=== PATIENT | female | born 1955 | race African-American/Black ===

== ENCOUNTER 2022-01-02 08:08 | Inpatient (IN) | payer MEDICAID, OTHER ==
[2022-01-02] VITALS (20 sets, daily range): BP systolic 80–129; BP diastolic 47–75
[~2022-01-02] VITALS: Ht 165.1 cm; Wt 73.5 kg
[2022-01-02] MEDS ORDERED: PANTOPRAZOLE SODIUM 40 MG/VIAL IV STA (08:16)
[2022-01-02] MEDS ORDERED: SODIUM CHLORIDE 0.9% 1,000 ML IV ONE (08:30)
[2022-01-02 09:04] LABS: BASOPHILS % 0.3 % (0.0-2.0); EOSINOPHILS % 0.4 % (0.0-5.0); HEMATOCRIT. 21.5 % (36.0-48.0); HEMOGLOBIN. 7.1 g/dL (12.0-16.0); LYMPHOCYTES % 13.6 % (20.0-50.0); MEAN CORPUSCULAR HEMOGLOBIN 31.7 pg (28.0-32.0); MEAN CORPUSCULAR VOLUME 96.1 fL (81.0-99.0); MEAN PLATELET VOLUME 7.1 fl (7.4-10.4); MONOCYTES % 7.8 % (2.0-8.0); NEUTROPHILS % 77.9 % (40.0-76.0); PLATELET 414 x1000/uL (130-400); RED BLOOD CELL COUNT 2.23 mill/uL (4.2-5.4); RED CELL DISTRIBUTION WIDTH 18.8 % (11.6-14.6)
[2022-01-02 09:10] LABS: CHLORIDE 97 mEq/L (98-107)
[2022-01-02] MEDS ORDERED: LIDOCAINE HCL/PF 1% 10 MG/ML 5ML VIAL ONE (09:10)
[2022-01-02 09:19] LABS: ETHANOL BLOOD < 10 mg/dL; TOTAL IRON BINDING CAPACITY 133 ug/dL (250-450)
[2022-01-02] MEDS ORDERED: NOREPINEPHRINE 8 MG in DEXT 5% WATER 242 ML IV PRN ×6 (11:30→18:15)
[2022-01-02] MEDS ORDERED: PIPERACILLIN/TAZ 3.375G PREMIX 50 ML IV NR (12:00)
[2022-01-02] MEDS ORDERED: DOCUSATE SODIUM 100MG CAPSULE PO PRN (13:00)
[2022-01-02] MEDS ORDERED: GUAIFENESIN 200MG/10ML SUGAR FREE UDC PO PRN (13:00)
[2022-01-02] MEDS ORDERED: CLONIDINE 0.1MG TABLET PO PRN (13:00)
[2022-01-02] MEDS ORDERED: IPRATROPIUM/ALBUTEROL 0.5-3(2.5)MG/3ML NEB HHN PRN (13:00)
[2022-01-02] MEDS ORDERED: LORAZEPAM 2MG/ML CPJ IV PRN (13:00)
[2022-01-02] MEDS ORDERED: MORPHINE SULFATE 4 MG/ML CPJ (NOT FOR IM USE) IV ONE (13:00)
[2022-01-02] MEDS ORDERED: ACETAMINOPHEN 325MG TABLET PO PRN (13:00)
[2022-01-02] MEDS ORDERED: NALOXONE HCL 0.4MG/ML VIAL IV PRN (13:30)
[2022-01-02 13:32] LABS: *AMPHETAMINES SCREEN URINE NEGATIVE (NEGATIVE); *BARBITURATES SCREEN URINE NEGATIVE (NEGATIVE); *BENZODIAZEPINES SCREEN URINE NEGATIVE (NEGATIVE); *COCAINE SCREEN URINE NEGATIVE (NEGATIVE); CANNABINOID URINE SCREEN NEGATIVE (NEGATIVE); METHADONE URINE SCREEN NEGATIVE (NEGATIVE); OPIATES URINE SCREEN PRESUMTIVE POSITIVE (NEGATIVE); PHENCYCLIDINE URINE SCREEN NEGATIVE (NEGATIVE)
[2022-01-02] MEDS: DEXT 5%/0.9% NACL 1,000 ML IV SCH (14:15)
[2022-01-02 14:27] LABS: D-DIMER 1.59 mg/L FEU (<0.50); INR 1.2; PROTHROMBIN TIME 12.8 sec (9.6-11.0)
[2022-01-02 14:30] LABS: PHOSPHORUS 3.3 mg/dL (2.5-4.9)
[2022-01-02] MEDS: HYDROMORPHONE HCL/PF 2MG/ML CPJ IV PRN ×2 (14:59→20:15)
[2022-01-02] MEDS ORDERED: VANCOMYCIN 1,750 MG in DEXT 5% WATER 500 ML IV NR (15:00)
[2022-01-02] MEDS ORDERED: MORPHINE SULFATE 4 MG/ML CPJ (NOT FOR IM USE) IV NR (16:00)
[2022-01-02 19:01] LABS: CLARITY URINE CLOUDY (CLEAR); COLOR URINE YELLOW (YELLOW); KETONES URINE NEGATIVE (NEGATIVE); LEUKOCYTE ESTERASE URINE 1+ (NEGATIVE); NITRITE URINE NEGATIVE (NEGATIVE); OCCULT BLOOD URINE 1+ (NEGATIVE); PH URINE 5.5 (4.5-8.0); PROTEIN URINE TRACE (NEGATIVE); SPECIFIC GRAVITY URINE 1.013 (1.005-1.030); UROBILINOGEN URINE 0.2 E.U./dL (0.2-1.0)
[2022-01-02] MEDS ORDERED: PIPERACILLIN/TAZOBACTAM 3.375 G in DEXTROSE 5% WATER 50 ML IV SCH (21:00)
[2022-01-02] MEDS: PIPERACILLIN/TAZOBACTAM 3.375 G in DEXTROSE 5% WATER 50 ML IV SCH (21:35)
[2022-01-02 23:15] LABS: BASOPHILS % 0.4 % (0.0-2.0); EOSINOPHILS % 0.4 % (0.0-5.0); HEMATOCRIT. 33.5 % (36.0-48.0); HEMOGLOBIN. 10.8 g/dL (12.0-16.0); MEAN CORPUSCULAR HEMOGLOBIN 29.5 pg (28.0-32.0); MEAN PLATELET VOLUME 7.1 fl (7.4-10.4); MONOCYTES % 8.1 % (2.0-8.0); NEUTROPHILS % 78.1 % (40.0-76.0); PLATELET 417 x1000/uL (130-400); RED BLOOD CELL COUNT 3.68 mill/uL (4.2-5.4); RED CELL DISTRIBUTION WIDTH 24.1 % (11.6-14.6)
[2022-01-03] VITALS (50 sets, daily range): BP systolic 98–160; BP diastolic 44–105
[2022-01-03] MEDS: ACETAMINOPHEN 325MG TABLET PO PRN ×2 (00:16→20:12)
[2022-01-03] MEDS ORDERED: OMEP20CA14 PO (00:55)
[2022-01-03] MEDS ORDERED: TIZA4CAP6 PO (00:55)
[2022-01-03] MEDS ORDERED: LISI20TA31 MT (00:55)
[2022-01-03] MEDS ORDERED: EZET-55 PO (00:55)
[2022-01-03] MEDS ORDERED: ALEN35TA52 MT (00:55)
[2022-01-03] MEDS ORDERED: SIMV10TA97 MT (00:55)
[2022-01-03] MEDS ORDERED: TRAM50TA3 MT (00:55)
[2022-01-03] MEDS: HYDROMORPHONE HCL/PF 2MG/ML CPJ IV PRN ×4 (02:51→20:21)
[2022-01-03 05:21] LABS: PLATELET ESTIMATE SLIGHTLY INCREASED
[2022-01-03 05:28] LABS: HEMATOCRIT. 29.2 % (36.0-48.0); MEAN CORPUSCULAR HEMOGLOBIN 30.5 pg (28.0-32.0); MEAN CORPUSCULAR VOLUME 88.8 fL (81.0-99.0); MEAN PLATELET VOLUME 7.2 fl (7.4-10.4); PLATELET 414 x1000/uL (130-400); RED BLOOD CELL COUNT 3.28 mill/uL (4.2-5.4); RED CELL DISTRIBUTION WIDTH 23.9 % (11.6-14.6)
[2022-01-03 05:30] LABS: CHLORIDE 105 mEq/L (98-107)
[2022-01-03 05:43] LABS: HDL CHOLESTEROL 8 mg/dL (40-59); LDL CHOLESTEROL 15 mg/dL (5-100); T4 FREE 1.16 ng/dL (0.76-1.46)
[2022-01-03] MEDS: DEXT 5%/0.9% NACL 1,000 ML IV SCH ×3 (06:06→18:21)
[2022-01-03] MEDS: PIPERACILLIN/TAZOBACTAM 3.375 G in DEXTROSE 5% WATER 50 ML IV SCH ×2 (09:02→20:11)
[2022-01-03] MEDS: PANTOPRAZOLE SODIUM 40 MG/VIAL IV SCH (09:02)
[2022-01-03 09:44] LABS: HEMOGLOBIN. 10.7 g/dL (12.0-16.0); MEAN CORPUSCULAR HEMOGLOBIN 29.8 pg (28.0-32.0); MEAN PLATELET VOLUME 6.9 fl (7.4-10.4); PLATELET 407 x1000/uL (130-400); RED CELL DISTRIBUTION WIDTH 23.5 % (11.6-14.6)
[2022-01-03 09:47] LABS: NUCLEATED RED BLOOD CELLS 1 /100 WBC; PLATELET ESTIMATE SLIGHTLY INCREASED
[2022-01-03 10:46] LABS: NUCLEATED RED BLOOD CELLS 1 /100 WBC; PLATELET ESTIMATE SLIGHTLY INCREASED
[2022-01-03 13:05] LABS: HEMATOCRIT. 33.8 % (36.0-48.0); MEAN CORPUSCULAR HEMOGLOBIN 29.7 pg (28.0-32.0); MEAN CORPUSCULAR VOLUME 91.5 fL (81.0-99.0); PLATELET 442 x1000/uL (130-400); RED CELL DISTRIBUTION WIDTH 24.3 % (11.6-14.6)
[2022-01-03 13:49] LABS: NUCLEATED RED BLOOD CELLS 2 /100 WBC; PLATELET ESTIMATE INCREASED
[2022-01-03] MEDS ORDERED: VANCOMYCIN 500MG PREMIX 100 ML IV SCH (14:00)
[2022-01-03 18:43] LABS: BASOPHILS % 0.1 % (0.0-2.0); EOSINOPHILS % 0.3 % (0.0-5.0); HEMATOCRIT. 31.8 % (36.0-48.0); HEMOGLOBIN. 10.3 g/dL (12.0-16.0); LYMPHOCYTES % 15.5 % (20.0-50.0); MEAN CORPUSCULAR HEMOGLOBIN 29.7 pg (28.0-32.0); MEAN CORPUSCULAR VOLUME 91.8 fL (81.0-99.0); MONOCYTES % 9.6 % (2.0-8.0); NEUTROPHILS % 74.5 % (40.0-76.0); PLATELET 419 x1000/uL (130-400); RED BLOOD CELL COUNT 3.46 mill/uL (4.2-5.4); RED CELL DISTRIBUTION WIDTH 24.3 % (11.6-14.6)
[2022-01-03 18:45] LABS: CREATINE KINASE MB FRACTION 1.7 ng/mL (0.5-3.6)
[2022-01-03] MEDS: ONDANSETRON HCL 4MG/2ML INJ IV PRN (23:33)
[2022-01-04] VITALS (16 sets, daily range): BP systolic 131–165; BP diastolic 58–82
[2022-01-04 00:44] LABS: CREATINE KINASE MB FRACTION 1.6 ng/mL (0.5-3.6)
[2022-01-04] MEDS: HYDROMORPHONE HCL/PF 2MG/ML CPJ IV PRN ×6 (00:52→20:52)
[2022-01-04] MEDS: DEXT 5%/0.9% NACL 1,000 ML IV SCH ×3 (02:36→18:43)
[2022-01-04 06:47] LABS: BASOPHILS % 0.2 % (0.0-2.0); EOSINOPHILS % 0.4 % (0.0-5.0); HEMATOCRIT. 31.4 % (36.0-48.0); HEMOGLOBIN. 10.3 g/dL (12.0-16.0); MEAN CORPUSCULAR HEMOGLOBIN 30.4 pg (28.0-32.0); MEAN CORPUSCULAR VOLUME 92.7 fL (81.0-99.0); MONOCYTES % 8.9 % (2.0-8.0); NEUTROPHILS % 73.5 % (40.0-76.0); PLATELET 354 x1000/uL (130-400); RED BLOOD CELL COUNT 3.39 mill/uL (4.2-5.4); RED CELL DISTRIBUTION WIDTH 24.9 % (11.6-14.6)
[2022-01-04 06:48] LABS: CHLORIDE 112 mEq/L (98-107)
[2022-01-04 07:12] LABS: CREATINE KINASE 498 IU/L (26-192)
[2022-01-04] MEDS ORDERED: PNEUMOCOCCAL 23-VAL P-SAC VAC 0.5 ML IM ONE (09:00)
[2022-01-04] MEDS: PANTOPRAZOLE SODIUM 40 MG/VIAL IV SCH (09:53)
[2022-01-04] MEDS: PIPERACILLIN/TAZOBACTAM 3.375 G in DEXTROSE 5% WATER 50 ML IV SCH ×2 (09:53→21:24)
[2022-01-04 18:17] LABS: HEMATOCRIT 30.4 % (36.0-48.0); HEMOGLOBIN 9.6 g/dL (12.0-16.0); MEAN CORPUSCULAR VOLUME 94.8 fL (81.0-99.0); PLATELET 297 x1000/uL (130-400); RED CELL DISTRIBUTION WIDTH 24.6 % (11.6-14.6)
[2022-01-04 18:42] LABS: CHLORIDE 111 mEq/L (98-107)
[2022-01-04] MEDS: DIPHENHYDRAMINE 50MG/ML VIAL IV PRN (21:24)
[2022-01-04] MEDS: ONDANSETRON HCL 4MG/2ML INJ IV PRN (21:24)
[2022-01-05] VITALS: BP 122/56
[2022-01-05] MEDS: HYDROMORPHONE HCL/PF 2MG/ML CPJ IV PRN ×5 (00:54→22:25)
[2022-01-05] MEDS: DIPHENHYDRAMINE 50MG/ML VIAL IV PRN ×2 (01:24→05:25)
[2022-01-05 04:00] VITALS: BP 138/62
[2022-01-05] MEDS: DEXT 5%/0.9% NACL 1,000 ML IV SCH ×2 (05:16→22:14)
[2022-01-05 08:00] VITALS: BP 111/51
[2022-01-05] MEDS: PANTOPRAZOLE SODIUM 40 MG/VIAL IV SCH (08:36)
[2022-01-05] MEDS: KETOROLAC 30MG/ML VIAL IV PRN ×2 (08:36→20:43)
[2022-01-05] MEDS: PIPERACILLIN/TAZOBACTAM 3.375 G in DEXTROSE 5% WATER 50 ML IV SCH ×2 (08:36→20:38)
[2022-01-05] MEDS ORDERED: DIATR MEGLU/DIATRIZOATE SOLN 30ML PO NR (09:45)
[2022-01-05 12:00] VITALS: BP 120/68
[2022-01-05] MEDS ORDERED: IOHEXOL-300 100 ML BOTTLE ONE (19:26)
[2022-01-05 20:32] VITALS: BP 148/74
[2022-01-05 21:22] LABS: HEMATOCRIT 28.4 % (36.0-48.0); HEMOGLOBIN 9.3 g/dL (12.0-16.0); MEAN CORPUSCULAR HEMOGLOBIN 30.1 pg (28.0-32.0); MEAN CORPUSCULAR VOLUME 92.6 fL (81.0-99.0); PLATELET 335 x1000/uL (130-400); RED BLOOD CELL COUNT 3.07 mill/uL (4.2-5.4); RED CELL DISTRIBUTION WIDTH 23.7 % (11.6-14.6)
[2022-01-05 21:33] LABS: CHLORIDE 111 mEq/L (98-107)
[2022-01-06 00:10] VITALS: BP 97/42
[2022-01-06] MEDS: ACETAMINOPHEN 325MG TABLET PO PRN (00:33)
[2022-01-06 04:00] VITALS: BP 129/56
[2022-01-06] MEDS: HYDROMORPHONE HCL/PF 2MG/ML CPJ IV PRN ×2 (05:17→11:56)
[2022-01-06 08:00] VITALS: BP 152/57
[2022-01-06] MEDS: DEXT 5%/0.9% NACL 1,000 ML IV SCH (08:16)
[2022-01-06] MEDS: PANTOPRAZOLE SODIUM 40 MG/VIAL IV SCH (08:59)
[2022-01-06] MEDS: PIPERACILLIN/TAZOBACTAM 3.375 G in DEXTROSE 5% WATER 50 ML IV SCH (09:00)
[2022-01-06] MEDS ORDERED: PANT40SU PO (10:07)
[2022-01-06] MEDS ORDERED: AMOX600S16 PO (10:07)
[2022-01-06] MEDS ORDERED: ACET-2708 MT (10:07)
[2022-01-06 10:17] LABS: CHLORIDE 110 mEq/L (98-107)
[2022-01-06 12:00] VITALS: BP 161/76
[2022-01-06 13:43] LABS: HEMATOCRIT. 31.2 % (36.0-48.0); HEMOGLOBIN. 10.1 g/dL (12.0-16.0); MEAN CORPUSCULAR HEMOGLOBIN 29.3 pg (28.0-32.0); MEAN CORPUSCULAR VOLUME 90.8 fL (81.0-99.0); MEAN PLATELET VOLUME 7.5 fl (7.4-10.4); PLATELET 371 x1000/uL (130-400); RED BLOOD CELL COUNT 3.44 mill/uL (4.2-5.4); RED CELL DISTRIBUTION WIDTH 23.4 % (11.6-14.6)
[2022-01-06 14:10] LABS: NUCLEATED RED BLOOD CELLS 1 /100 WBC
[2022-01-06 14:11] LABS: PLATELET ESTIMATE NORMAL
[2022-01-06 16:00] VITALS: BP 167/71
[2022-01-06] MEDS: KETOROLAC 30MG/ML VIAL IV PRN (17:24)
[2022-01-06 18:02] VITALS: BP 167/71
== END 2022-01-06 18:45 | disposition home or self-care (01) | DRG 720 ==
LOC: ER 08:39 → MICUSO 11:27 → EDBEDREQSVC 11:47 → EDBEDREQTM 11:47 → EDBEDREQ 11:47 → ENRESERV 17:26 → 5EST 01-04 01:00 → 7WST 01-04 15:15
PROVIDERS: ADMIT Internal Medicine; ATTEND Internal Medicine
PROC: B54MZZA Ultrasonography of Right Upper Extremity Veins, Guidance (ICD-10-PCS; principal; 2022-01-02)
PROC: 05HY33Z Insertion of Infusion Device into Upper Vein, Percutaneous Approach (ICD-10-PCS; 2022-01-02)
PROC: 30233N1 Transfusion of Nonautologous Red Blood Cells into Peripheral Vein, Percutaneous Approach (ICD-10-PCS; 2022-01-02)
DX: A41.9 Sepsis, unspecified organism (principal); N17.0 Acute kidney failure with tubular necrosis; K55.9 Vascular disorder of intestine, unspecified; E43 Unspecified severe protein-calorie malnutrition; R57.1 Hypovolemic shock; R65.21 Severe sepsis with septic shock; E11.22 Type 2 diabetes mellitus with diabetic chronic kidney disease; I13.0 Hypertensive heart and chronic kidney disease with heart failure and stage 1 through stage 4 chronic kidney disease, or unspecified chronic kidney disease; I50.32 Chronic diastolic (congestive) heart failure; D50.0 Iron deficiency anemia secondary to blood loss (chronic); E87.1 Hypo-osmolality and hyponatremia; D75.839 Thrombocytosis, unspecified; I45.10 Unspecified right bundle-branch block; N18.9 Chronic kidney disease, unspecified; E11.65 Type 2 diabetes mellitus with hyperglycemia; E78.1 Pure hyperglyceridemia; G40.909 Epilepsy, unspecified, not intractable, without status epilepticus; K64.4 Residual hemorrhoidal skin tags; E78.5 Hyperlipidemia, unspecified; L03.90 Cellulitis, unspecified; Z79.83 Long term (current) use of bisphosphonates; Z82.49 Family history of ischemic heart disease and other diseases of the circulatory system; Z85.43 Personal history of malignant neoplasm of ovary; Z87.19 Personal history of other diseases of the digestive system; Z87.891 Personal history of nicotine dependence; Z90.710 Acquired absence of both cervix and uterus; Z92.21 Personal history of antineoplastic chemotherapy; Z92.3 Personal history of irradiation; Z88.8 Allergy status to other drugs, medicaments and biological substances; Z68.27 Body mass index [BMI] 27.0-27.9, adult
CPT/HCPCS: 36415; 36573; 71045; 74018; 74176; 74177; 80048; 80053; 80061; 80305; 80320; 81003; 82270; 82550; 82553; 82728; 83036; 83540; 83550; 83605; 83735; 83880; 84100; 84145; 84439; 84443; 84484; 85025; 85027; 85044; 85379; 86850; 86900; 86920; 87493; 90732; 93005; 93306; 97162; 99291; C1725; C9113; J1170; J1200; J1885; J2270; J2405; J2543; J3370; J3490; J7030; J7060; P9016; Q9963; Q9967; G0480

== ENCOUNTER 2022-01-18 10:36 | Inpatient (IN) | payer MEDICAID ==
[~2022-01-18] VITALS: Ht 162.6 cm; Wt 85.7 kg
[~2022-01-18 10:36] MED LIST: ACET-2708 MT; ALEN35TA52 MT; AMOX600S16 PO; EZET-55 PO; LISI20TA31 MT; PANT40SU PO; SIMV10TA97 MT; TIZA4CAP6 PO; TRAM50TA3 MT
[2022-01-18] MEDS ORDERED: ACETAMINOPHEN 325MG TABLET PO NR (10:59)
[2022-01-18] MEDS ORDERED: SODIUM CHLORIDE 0.9% 500 ML IV NR (11:45)
[2022-01-18] MEDS ORDERED: METOCLOPRAMIDE HCL 10MG/2ML VIAL IV NR (11:45)
[2022-01-18 12:06] LABS: BASOPHILS % 0.2 % (0.0-2.0); EOSINOPHILS % 1.3 % (0.0-5.0); HEMATOCRIT. 22.5 % (36.0-48.0); HEMOGLOBIN. 7.3 g/dL (12.0-16.0); LYMPHOCYTES % 11.5 % (20.0-50.0); MEAN CORPUSCULAR HEMOGLOBIN 30.4 pg (28.0-32.0); MEAN CORPUSCULAR VOLUME 93.9 fL (81.0-99.0); MEAN PLATELET VOLUME 7.1 fl (7.4-10.4); MONOCYTES % 3.9 % (2.0-8.0); NEUTROPHILS % 83.1 % (40.0-76.0); PLATELET 525 x1000/uL (130-400)
[2022-01-18] MEDS ORDERED: PIPERACILLIN/TAZ 3.375G PREMIX 50 ML IV ONE (12:15)
[2022-01-18] MEDS ORDERED: VANCOMYCIN 1G PREMIX 200 ML IV SCH (12:15)
[2022-01-18 12:31] LABS: INR 1.5; PROTHROMBIN TIME 15.9 sec (9.6-11.0)
[2022-01-18 12:33] LABS: CHLORIDE 104 mEq/L (98-107)
[2022-01-18 12:42] LABS: ETHANOL BLOOD < 10 mg/dL
[2022-01-18 12:46] LABS: PLATELET ESTIMATE INCREASED
[2022-01-18] MEDS ORDERED: MORPHINE SULFATE 4 MG/ML CPJ (NOT FOR IM USE) IV ONE (13:00)
[2022-01-18] MEDS ORDERED: SODIUM CHLORIDE 0.9% 500 ML IV ONE (13:15)
[2022-01-18] MEDS ORDERED: HYDROMORPHONE HCL/PF 2MG/ML CPJ IV ONE (13:15)
[2022-01-18] MEDS ORDERED: ONDANSETRON HCL 4MG/2ML INJ IV ONE (13:15)
[2022-01-18] MEDS ORDERED: DIATR MEGLU/DIATRIZOATE SOLN 120ML ONE (13:30)
[2022-01-18] MEDS ORDERED: IOHEXOL-350 100 ML BOTTLE ONE (14:16)
[2022-01-18] MEDS ORDERED: ONDANSETRON HCL 4MG/2ML INJ IV NR (15:15)
[2022-01-18] MEDS ORDERED: SODIUM CHLORIDE 0.9% 1,000 ML IV ONE (15:15)
[2022-01-18] MEDS ORDERED: PIPERACILLIN/TAZ 3.375G PREMIX 50 ML IV NR (15:15)
[2022-01-18 16:00] VITALS: BP 109/46
[2022-01-18 17:33] VITALS: BP 108/54
[2022-01-18] MEDS: PANTOPRAZOLE SODIUM 40 MG/VIAL IV SCH (18:00)
[2022-01-18 18:34] LABS: TOTAL IRON BINDING CAPACITY 111 ug/dL (250-450)
[2022-01-18 18:54] LABS: FERRITIN 295 ng/mL (10-291)
[2022-01-18 19:00] LABS: VITAMIN B12 SERUM > 2000.0 pg/mL (211-911)
[2022-01-18 20:00] VITALS: BP 104/63
[2022-01-18] MEDS ORDERED: NALOXONE HCL 0.4MG/ML VIAL IV PRN (20:45)
[2022-01-18] MEDS: DEXT 5%/0.45% NACL 1000ML 1,000 ML IV SCH (20:48)
[2022-01-18] MEDS: MORPHINE SULFATE 2 MG/ML CPJ (NOT FOR IM USE) IV PRN (20:50)
[2022-01-18] MEDS: LEVOFLOXACIN 500MG PREMIX 100 ML IV SCH (21:08)
[2022-01-18] MEDS: METRONIDAZOLE 500 MG PREMIX 100 ML IV SCH (21:09)
[2022-01-18 21:16] LABS: HEMATOCRIT 22.7 % (36.0-48.0); HEMOGLOBIN 7.2 g/dL (12.0-16.0)
[2022-01-18 22:00] VITALS: BP 97/51
[2022-01-19] VITALS (12 sets, daily range): BP systolic 93–169; BP diastolic 45–100
[2022-01-19] MEDS: MORPHINE SULFATE 2 MG/ML CPJ (NOT FOR IM USE) IV PRN ×2 (01:03→05:25)
[2022-01-19 01:53] LABS: CLARITY URINE CLEAR (CLEAR); COLOR URINE YELLOW (YELLOW); KETONES URINE NEGATIVE (NEGATIVE); LEUKOCYTE ESTERASE URINE NEGATIVE (NEGATIVE); NITRITE URINE NEGATIVE (NEGATIVE); OCCULT BLOOD URINE NEGATIVE (NEGATIVE); PH URINE 5.5 (4.5-8.0); PROTEIN URINE TRACE (NEGATIVE); SPECIFIC GRAVITY URINE 1.041 (1.005-1.030)
[2022-01-19 02:50] LABS: *AMPHETAMINES SCREEN URINE NEGATIVE (NEGATIVE); *BARBITURATES SCREEN URINE NEGATIVE (NEGATIVE); *BENZODIAZEPINES SCREEN URINE NEGATIVE (NEGATIVE); *COCAINE SCREEN URINE NEGATIVE (NEGATIVE); CANNABINOID URINE SCREEN NEGATIVE (NEGATIVE); METHADONE URINE SCREEN NEGATIVE (NEGATIVE); OPIATES URINE SCREEN PRESUMTIVE POSITIVE (NEGATIVE); PHENCYCLIDINE URINE SCREEN NEGATIVE (NEGATIVE)
[2022-01-19 03:13] LABS: BASOPHILS % 0.4 % (0.0-2.0); EOSINOPHILS % 2.2 % (0.0-5.0); HEMATOCRIT. 21.1 % (36.0-48.0); HEMOGLOBIN. 7.1 g/dL (12.0-16.0); LYMPHOCYTES % 14.2 % (20.0-50.0); MEAN CORPUSCULAR VOLUME 95.4 fL (81.0-99.0); MEAN PLATELET VOLUME 7.3 fl (7.4-10.4); MONOCYTES % 4.3 % (2.0-8.0); NEUTROPHILS % 78.9 % (40.0-76.0); PLATELET 432 x1000/uL (130-400); RED BLOOD CELL COUNT 2.21 mill/uL (4.2-5.4); RED CELL DISTRIBUTION WIDTH 22.8 % (11.6-14.6)
[2022-01-19 03:18] LABS: CHLORIDE 106 mEq/L (98-107)
[2022-01-19] MEDS: ACETAMINOPHEN 325MG TABLET PO PRN ×2 (03:41→20:18)
[2022-01-19] MEDS: PANTOPRAZOLE SODIUM 40 MG/VIAL IV SCH ×2 (05:22→17:13)
[2022-01-19] MEDS: METRONIDAZOLE 500 MG PREMIX 100 ML IV SCH ×3 (05:22→20:17)
[2022-01-19] MEDS: DEXT 5%/0.45% NACL 1000ML 1,000 ML IV SCH ×2 (07:05→20:18)
[2022-01-19] MEDS ORDERED: PANTOPRAZOLE SODIUM 40 MG/VIAL IV SCH (09:00)
[2022-01-19] MEDS ORDERED: MORPHINE SULFATE 4 MG/ML CPJ (NOT FOR IM USE) IV PRN (10:00)
[2022-01-19] MEDS ORDERED: LORAZEPAM 2MG/ML CPJ IV NR (10:30)
[2022-01-19 11:05] LABS: HEMATOCRIT 23.3 % (36.0-48.0); HEMOGLOBIN 7.4 g/dL (12.0-16.0)
[2022-01-19] MEDS: HYDROMORPHONE HCL/PF 2MG/ML CPJ IV PRN ×2 (13:01→20:27)
[2022-01-19 19:23] LABS: HEMATOCRIT 22.1 % (36.0-48.0); HEMOGLOBIN 7.1 g/dL (12.0-16.0)
[2022-01-19] MEDS: LEVOFLOXACIN 500MG PREMIX 100 ML IV SCH (21:49)
[2022-01-20] VITALS (17 sets, daily range): BP systolic 130–153; BP diastolic 63–96
[2022-01-20] MEDS: HYDROMORPHONE HCL/PF 2MG/ML CPJ IV PRN ×4 (04:04→23:44)
[2022-01-20] MEDS: PANTOPRAZOLE SODIUM 40 MG/VIAL IV SCH ×2 (05:06→17:12)
[2022-01-20] MEDS: METRONIDAZOLE 500 MG PREMIX 100 ML IV SCH ×3 (05:06→21:19)
[2022-01-20 05:48] LABS: HEMOGLOBIN 6.3 g/dL (12.0-16.0)
[2022-01-20 05:49] LABS: HEMATOCRIT 19.9 % (36.0-48.0)
[2022-01-20] MEDS: DEXT 5%/0.45% NACL 1000ML 1,000 ML IV SCH ×2 (09:53→23:05)
[2022-01-20 11:45] LABS: BASOPHILS % 0.3 % (0.0-2.0); EOSINOPHILS % 1.2 % (0.0-5.0); HEMATOCRIT. 22.5 % (36.0-48.0); HEMOGLOBIN. 7.3 g/dL (12.0-16.0); LYMPHOCYTES % 18.5 % (20.0-50.0); MEAN CORPUSCULAR HEMOGLOBIN 31.4 pg (28.0-32.0); MEAN CORPUSCULAR VOLUME 96.6 fL (81.0-99.0); MEAN PLATELET VOLUME 6.5 fl (7.4-10.4); PLATELET 413 x1000/uL (130-400); RED BLOOD CELL COUNT 2.33 mill/uL (4.2-5.4); RED CELL DISTRIBUTION WIDTH 21.5 % (11.6-14.6)
[2022-01-20 17:57] LABS: CHLORIDE 104 mEq/L (98-107)
[2022-01-20] MEDS: LEVOFLOXACIN 500MG PREMIX 100 ML IV SCH (21:19)
[2022-01-20 22:31] LABS: HEMATOCRIT 24.5 % (36.0-48.0)
[2022-01-21] VITALS (8 sets, daily range): BP systolic 126–161; BP diastolic 71–85
[2022-01-21] MEDS: METRONIDAZOLE 500 MG PREMIX 100 ML IV SCH ×3 (05:14→20:29)
[2022-01-21] MEDS: PANTOPRAZOLE SODIUM 40 MG/VIAL IV SCH ×2 (05:14→17:04)
[2022-01-21] MEDS: HYDROMORPHONE HCL/PF 2MG/ML CPJ IV PRN ×3 (06:08→18:32)
[2022-01-21 06:10] LABS: BASOPHILS % 0.2 % (0.0-2.0); EOSINOPHILS % 0.8 % (0.0-5.0); HEMATOCRIT. 24.5 % (36.0-48.0); HEMOGLOBIN. 7.9 g/dL (12.0-16.0); LYMPHOCYTES % 14.8 % (20.0-50.0); MEAN CORPUSCULAR VOLUME 96.3 fL (81.0-99.0); MEAN PLATELET VOLUME 6.5 fl (7.4-10.4); MONOCYTES % 5.8 % (2.0-8.0); NEUTROPHILS % 78.4 % (40.0-76.0); PLATELET 424 x1000/uL (130-400); RED BLOOD CELL COUNT 2.54 mill/uL (4.2-5.4); RED CELL DISTRIBUTION WIDTH 20.9 % (11.6-14.6)
[2022-01-21 10:15] LABS: CHLORIDE 106 mEq/L (98-107)
[2022-01-21] MEDS: DEXT 5%/0.45% NACL 1000ML 1,000 ML IV SCH (12:39)
[2022-01-21] MEDS: HYDRALAZINE 20MG/ML VIAL IV PRN (17:05)
[2022-01-21] MEDS: LEVOFLOXACIN 500MG PREMIX 100 ML IV SCH (20:29)
[2022-01-21] MEDS ORDERED: ACETAMINOPHEN 650MG SUPP PR PRN (20:30)
[2022-01-22] MEDS: HYDROMORPHONE HCL/PF 2MG/ML CPJ IV PRN ×4 (00:24→19:10)
[2022-01-22] MEDS: DEXT 5%/0.45% NACL 1000ML 1,000 ML IV SCH ×2 (00:25→16:15)
[2022-01-22 03:31] VITALS: BP_SYST 114; BP_SYST 155; BP_DIAS 70; BP_DIAS 75
[2022-01-22] MEDS: PANTOPRAZOLE SODIUM 40 MG/VIAL IV SCH ×2 (05:30→18:53)
[2022-01-22] MEDS: METRONIDAZOLE 500 MG PREMIX 100 ML IV SCH ×3 (05:30→20:54)
[2022-01-22 07:38] LABS: HEMATOCRIT. 25.2 % (36.0-48.0); HEMOGLOBIN. 8.2 g/dL (12.0-16.0); MEAN CORPUSCULAR HEMOGLOBIN 31.8 pg (28.0-32.0); MEAN CORPUSCULAR VOLUME 96.9 fL (81.0-99.0); MEAN PLATELET VOLUME 6.4 fl (7.4-10.4); PLATELET 377 x1000/uL (130-400); RED CELL DISTRIBUTION WIDTH 20.7 % (11.6-14.6)
[2022-01-22 08:29] LABS: CHLORIDE 105 mEq/L (98-107)
[2022-01-22 12:00] VITALS: BP 183/80
[2022-01-22 13:28] LABS: NUCLEATED RED BLOOD CELLS 6 /100 WBC
[2022-01-22 13:29] LABS: PLATELET ESTIMATE NORMAL
[2022-01-22 16:00] VITALS: BP 214/106
[2022-01-22] MEDS: HYDRALAZINE 20MG/ML VIAL IV PRN (16:16)
[2022-01-22] MEDS ORDERED: CLONIDINE HCL 0.1MG/24HR PATCH TD SCH (18:45)
[2022-01-22] MEDS ORDERED: LABETALOL 5MG/ML SYR 20 MG/4 ML SYRINGE IV NR (18:45)
[2022-01-22 20:00] VITALS: BP 176/94
[2022-01-22] MEDS: LEVOFLOXACIN 500MG PREMIX 100 ML IV SCH (20:54)
[2022-01-23] VITALS (7 sets, daily range): BP systolic 102–179; BP diastolic 64–92
[2022-01-23] MEDS: HYDROMORPHONE HCL/PF 2MG/ML CPJ IV PRN ×4 (01:47→23:04)
[2022-01-23] MEDS: DEXT 5%/0.45% NACL 1000ML 1,000 ML IV SCH ×2 (04:56→18:07)
[2022-01-23] MEDS: METRONIDAZOLE 500 MG PREMIX 100 ML IV SCH ×3 (04:57→21:06)
[2022-01-23] MEDS: PANTOPRAZOLE SODIUM 40 MG/VIAL IV SCH ×2 (06:28→18:07)
[2022-01-23] MEDS: HYDRALAZINE 20MG/ML VIAL IV PRN (09:10)
[2022-01-23] MEDS: IPRATROPIUM/ALBUTEROL 0.5-3(2.5)MG/3ML NEB HHN SCH ×3 (12:10→20:38)
[2022-01-23] MEDS: LEVOFLOXACIN 500MG PREMIX 100 ML IV SCH (21:05)
[2022-01-24] VITALS: BP 138/71
[2022-01-24] MEDS: IPRATROPIUM/ALBUTEROL 0.5-3(2.5)MG/3ML NEB HHN SCH ×5 (00:18→21:11)
[2022-01-24 04:00] VITALS: BP 166/88
[2022-01-24] MEDS: METRONIDAZOLE 500 MG PREMIX 100 ML IV SCH ×3 (04:34→21:13)
[2022-01-24] MEDS: PANTOPRAZOLE SODIUM 40 MG/VIAL IV SCH ×2 (05:52→18:38)
[2022-01-24 08:00] VITALS: BP 171/67
[2022-01-24] MEDS: DEXT 5%/0.45% NACL 1000ML 1,000 ML IV SCH (08:14)
[2022-01-24] MEDS: HYDROMORPHONE HCL/PF 2MG/ML CPJ IV PRN (08:14)
[2022-01-24 12:00] VITALS: BP 163/63
[2022-01-24] MEDS ORDERED: NALOXONE HCL 0.4MG/ML VIAL IV PRN (14:15)
[2022-01-24] MEDS: HYDROCODONE/ACETAMINOPHEN 10/325MG TABLET PO PRN ×2 (14:28→21:13)
[2022-01-24 16:00] VITALS: BP 141/89
[2022-01-24 16:22] LABS: BG BASE EXCESS 0.8 mmol/L (-2.0-2.0); BG CARBOXYHEMOGLOBIN 0.3 % (0.5-1.5); BG DEOXYHEMOGLOBIN 4.7 % (0.0-5.0); BG FRACTION INSPIRED OXYGEN 36; BG HCO3 ACT 22.8 mmol/L (22.0-26.0); BG METHEMOGLOBIN 0.1 % (0.0-1.5); BG OXYGEN SATURATION 95.3 % (92.0-98.5); BG OXYHEMOGLOBIN 94.9 % (94.0-97.0); BG PCO2 27.8 mmHg (35.0-45.0); BG PH 7.532 (7.350-7.450); BG PO2 71.7 mmHg (75.0-100.0); BG SAMPLE SITE RIGHT RADIAL; BG TOTAL HEMOGLOBIN 10.1 g/dL (12.0-18.0); BG VENT MODE NASAL CANNULA
[2022-01-24] MEDS: FUROSEMIDE 40MG/4ML VIAL IVP SCH (17:15)
[2022-01-24] MEDS ORDERED: PHYTONADIONE 10MG/ML AMP SUBCUT NR (19:45)
[2022-01-24 20:00] VITALS: BP 112/76
[2022-01-24] MEDS: LEVOFLOXACIN 500MG PREMIX 100 ML IV SCH (21:13)
[2022-01-25] VITALS (33 sets, daily range): BP systolic 94–166; BP diastolic 52–108
[2022-01-25] MEDS: IPRATROPIUM/ALBUTEROL 0.5-3(2.5)MG/3ML NEB HHN SCH ×6 (00:15→20:47)
[2022-01-25] MEDS: HYDROCODONE/ACETAMINOPHEN 10/325MG TABLET PO PRN ×3 (03:03→21:00)
[2022-01-25] MEDS: METRONIDAZOLE 500 MG PREMIX 100 ML IV SCH ×3 (04:40→21:00)
[2022-01-25 06:35] LABS: BASOPHILS % 0.1 % (0.0-2.0); EOSINOPHILS % 0.1 % (0.0-5.0); HEMATOCRIT. 25.5 % (36.0-48.0); HEMOGLOBIN. 8.6 g/dL (12.0-16.0); LYMPHOCYTES % 11.1 % (20.0-50.0); MEAN CORPUSCULAR VOLUME 94.4 fL (81.0-99.0); MONOCYTES % 3.7 % (2.0-8.0); PLATELET 194 x1000/uL (130-400); RED CELL DISTRIBUTION WIDTH 21.6 % (11.6-14.6)
[2022-01-25] MEDS: PANTOPRAZOLE SODIUM 40 MG/VIAL IV SCH ×2 (06:52→18:04)
[2022-01-25 08:18] LABS: CHLORIDE 96 mEq/L (98-107)
[2022-01-25] MEDS ORDERED: PHYTONADIONE 10MG/ML AMP SUBCUT NR (09:00)
[2022-01-25] MEDS: FUROSEMIDE 40MG/4ML VIAL IVP SCH (09:02)
[2022-01-25 09:52] LABS: BG BASE EXCESS 0.5 mmol/L (-2.0-2.0); BG CARBOXYHEMOGLOBIN 0.1 % (0.5-1.5); BG DEOXYHEMOGLOBIN 9.2 % (0.0-5.0); BG HCO3 ACT 28.5 mmol/L (22.0-26.0); BG METHEMOGLOBIN 0.3 % (0.0-1.5); BG OXYGEN SATURATION 90.8 % (92.0-98.5); BG OXYHEMOGLOBIN 90.4 % (94.0-97.0); BG PCO2 66.8 mmHg (35.0-45.0); BG PH 7.248 (7.350-7.450); BG PO2 73.1 mmHg (75.0-100.0); BG SAMPLE SITE RIGHT RADIAL; BG TOTAL HEMOGLOBIN 9.2 g/dL (12.0-18.0); BG VENT MODE NASAL CANNULA
[2022-01-25 10:52] LABS: INR 1.7; PROTHROMBIN TIME 17.6 sec (9.6-11.0)
[2022-01-25] MEDS ORDERED: HEPARIN BOLUS PRN aPTT <36 IV (11:15)
[2022-01-25] MEDS ORDERED: HEPARIN BOLUS PRN aPTT 37-44 IV (11:15)
[2022-01-25] MEDS: HEPARIN 25,000 UNITS PREMIX 250 ML IV SCH (11:31)
[2022-01-25] MEDS: DEXT 5%/0.45% NACL 1000ML 1,000 ML IV SCH ×2 (11:50→12:01)
[2022-01-25] MEDS ORDERED: FUROSEMIDE 40MG/4ML VIAL IVP NR (12:00)
[2022-01-25 12:44] LABS: BG BASE EXCESS 3.7 mmol/L (-2.0-2.0); BG DEOXYHEMOGLOBIN 1.4 % (0.0-5.0); BG FRACTION INSPIRED OXYGEN 50; BG HCO3 ACT 27.3 mmol/L (22.0-26.0); BG METHEMOGLOBIN 0.1 % (0.0-1.5); BG OXYGEN SATURATION 98.6 % (92.0-98.5); BG OXYHEMOGLOBIN 98.5 % (94.0-97.0); BG PCO2 37.5 mmHg (35.0-45.0); BG PO2 141.1 mmHg (75.0-100.0); BG SAMPLE SITE RIGHT RADIAL; BG TOTAL HEMOGLOBIN 9.7 g/dL (12.0-18.0); BG VENT MODE MASK - BIPAP
[2022-01-25] MEDS ORDERED: IOHEXOL-350 100 ML BOTTLE ONE (20:09)
[2022-01-25 20:38] LABS: HEMATOCRIT 26.7 % (36.0-48.0); HEMOGLOBIN 9.1 g/dL (12.0-16.0)
[2022-01-25] MEDS: LEVOFLOXACIN 500MG PREMIX 100 ML IV SCH (21:00)
[2022-01-26] VITALS (40 sets, daily range): BP systolic 80–145; BP diastolic 37–118
[2022-01-26 00:40] LABS: HEMATOCRIT 28.4 % (36.0-48.0); HEMOGLOBIN 9.3 g/dL (12.0-16.0)
[2022-01-26] MEDS: IPRATROPIUM/ALBUTEROL 0.5-3(2.5)MG/3ML NEB HHN SCH ×7 (00:59→23:58)
[2022-01-26] MEDS: HYDROCODONE/ACETAMINOPHEN 10/325MG TABLET PO PRN ×4 (01:46→23:51)
[2022-01-26] MEDS: PANTOPRAZOLE SODIUM 40 MG/VIAL IV SCH ×2 (05:59→17:01)
[2022-01-26] MEDS: METRONIDAZOLE 500 MG PREMIX 100 ML IV SCH ×3 (05:59→19:51)
[2022-01-26] MEDS: DEXT 5%/0.45% NACL 1000ML 1,000 ML IV SCH ×2 (06:00→23:52)
[2022-01-26 06:26] LABS: CHLORIDE 92 mEq/L (98-107)
[2022-01-26 06:46] LABS: HEMATOCRIT. 25.9 % (36.0-48.0); HEMOGLOBIN. 8.8 g/dL (12.0-16.0); MEAN CORPUSCULAR HEMOGLOBIN 32.6 pg (28.0-32.0); MEAN CORPUSCULAR VOLUME 96.5 fL (81.0-99.0); RED BLOOD CELL COUNT 2.69 mill/uL (4.2-5.4); RED CELL DISTRIBUTION WIDTH 23.8 % (11.6-14.6)
[2022-01-26] MEDS ORDERED: HEPARIN BOLUS PRN aPTT 37-44 IV (07:52)
[2022-01-26] MEDS ORDERED: HEPARIN BOLUS PRN aPTT <36 IV (07:52)
[2022-01-26] MEDS ORDERED: POTASSIUM CHLORIDE 20MEQ TABLET SR PO NR (08:15)
[2022-01-26] MEDS ORDERED: POTASSIUM CHLORIDE INJ 40 MEQ in DEXT 5% WATER 250 ML IV NR (08:30)
[2022-01-26] MEDS ORDERED: PHYTONADIONE 10MG/ML AMP SUBCUT NR (09:00)
[2022-01-26 09:05] LABS: BG CARBOXYHEMOGLOBIN 0.3 % (0.5-1.5); BG DEOXYHEMOGLOBIN 4.1 % (0.0-5.0); BG FRACTION INSPIRED OXYGEN 32; BG HCO3 ACT 29.5 mmol/L (22.0-26.0); BG METHEMOGLOBIN 0.3 % (0.0-1.5); BG OXYGEN SATURATION 95.9 % (92.0-98.5); BG OXYHEMOGLOBIN 95.3 % (94.0-97.0); BG PCO2 29.9 mmHg (35.0-45.0); BG PH 7.612 (7.350-7.450); BG PO2 74.7 mmHg (75.0-100.0); BG SAMPLE SITE RIGHT RADIAL; BG TOTAL HEMOGLOBIN 9.8 g/dL (12.0-18.0); BG VENT MODE NASAL CANNULA
[2022-01-26] MEDS: FUROSEMIDE 40MG/4ML VIAL IVP SCH (09:09)
[2022-01-26] MEDS: SPIRONOLACTONE 25MG TABLET PO SCH (10:03)
[2022-01-26 12:23] LABS: HEMATOCRIT 29.3 % (36.0-48.0); HEMOGLOBIN 9.6 g/dL (12.0-16.0)
[2022-01-26] MEDS: ONDANSETRON HCL 4MG/2ML INJ IV PRN ×2 (12:37→17:01)
[2022-01-26 13:15] LABS: NUCLEATED RED BLOOD CELLS 2 /100 WBC
[2022-01-26 13:17] LABS: PLATELET 211 x1000/uL (130-400); PLATELET ESTIMATE NORMAL
[2022-01-26 14:31] LABS: BG CARBOXYHEMOGLOBIN 0.3 % (0.5-1.5); BG DEOXYHEMOGLOBIN 3.2 % (0.0-5.0); BG FRACTION INSPIRED OXYGEN 38; BG HCO3 ACT 28.2 mmol/L (22.0-26.0); BG METHEMOGLOBIN 0.1 % (0.0-1.5); BG OXYGEN SATURATION 96.8 % (92.0-98.5); BG OXYHEMOGLOBIN 96.4 % (94.0-97.0); BG PCO2 31.8 mmHg (35.0-45.0); BG PH 7.565 (7.350-7.450); BG PO2 90.6 mmHg (75.0-100.0); BG SAMPLE SITE RIGHT RADIAL; BG TOTAL HEMOGLOBIN 9.8 g/dL (12.0-18.0); BG VENT MODE NASAL CANNULA
[2022-01-26] MEDS: HEPARIN 25,000 UNITS PREMIX 250 ML IV SCH ×2 (17:54→22:36)
[2022-01-26] MEDS: LEVOFLOXACIN 500MG PREMIX 100 ML IV SCH (19:51)
[2022-01-27] VITALS (67 sets, daily range): BP systolic 70–125; BP diastolic 44–82
[2022-01-27] MEDS: IPRATROPIUM/ALBUTEROL 0.5-3(2.5)MG/3ML NEB HHN SCH ×5 (03:43→20:17)
[2022-01-27] MEDS: HYDROCODONE/ACETAMINOPHEN 10/325MG TABLET PO PRN ×4 (04:34→21:02)
[2022-01-27] MEDS: METRONIDAZOLE 500 MG PREMIX 100 ML IV SCH ×3 (04:35→21:02)
[2022-01-27] MEDS: PANTOPRAZOLE SODIUM 40 MG/VIAL IV SCH ×2 (04:35→17:40)
[2022-01-27 05:49] LABS: CHLORIDE 90 mEq/L (98-107); INR 1.4; PROTHROMBIN TIME 14.8 sec (9.6-11.0)
[2022-01-27 05:54] LABS: BASOPHILS % 0.1 % (0.0-2.0); EOSINOPHILS % 0.1 % (0.0-5.0); HEMATOCRIT. 27.2 % (36.0-48.0); HEMOGLOBIN. 9.2 g/dL (12.0-16.0); MEAN CORPUSCULAR HEMOGLOBIN 32.6 pg (28.0-32.0); MEAN CORPUSCULAR VOLUME 96.9 fL (81.0-99.0); MEAN PLATELET VOLUME 8.3 fl (7.4-10.4); MONOCYTES % 4.3 % (2.0-8.0); NEUTROPHILS % 84.5 % (40.0-76.0); PLATELET 206 x1000/uL (130-400); RED BLOOD CELL COUNT 2.81 mill/uL (4.2-5.4); RED CELL DISTRIBUTION WIDTH 23.8 % (11.6-14.6)
[2022-01-27] MEDS: SPIRONOLACTONE 25MG TABLET PO SCH (09:00)
[2022-01-27] MEDS: FUROSEMIDE 40MG/4ML VIAL IVP SCH ×2 (09:01→17:40)
[2022-01-27] MEDS: KCL 20MEQ/100ML PREMIX 100 ML IV SCH ×2 (11:45→13:31)
[2022-01-27] MEDS ORDERED: SODIUM CHLORIDE 0.9% 250 ML IV ONE (13:45)
[2022-01-27] MEDS: NOREPINEPHRINE 32 MG in DEXT 5% WATER 218 ML IV PRN (15:56)
[2022-01-27] MEDS: LEVOFLOXACIN 500MG PREMIX 100 ML IV SCH (20:13)
[2022-01-27] MEDS: DEXT 5%/0.45% NACL 1000ML 1,000 ML IV SCH (20:14)
[2022-01-27] MEDS: ONDANSETRON HCL 4MG/2ML INJ IV PRN (21:02)
[2022-01-28] VITALS (95 sets, daily range): BP systolic 78–133; BP diastolic 28–108
[2022-01-28] MEDS: IPRATROPIUM/ALBUTEROL 0.5-3(2.5)MG/3ML NEB HHN SCH ×6 (00:37→20:45)
[2022-01-28] MEDS: HYDROCODONE/ACETAMINOPHEN 10/325MG TABLET PO PRN ×5 (01:04→21:50)
[2022-01-28] MEDS: DEXT 5%/0.45% NACL 1000ML 1,000 ML IV SCH (02:06)
[2022-01-28] MEDS: METRONIDAZOLE 500 MG PREMIX 100 ML IV SCH ×3 (05:25→21:49)
[2022-01-28] MEDS: PANTOPRAZOLE SODIUM 40 MG/VIAL IV SCH ×2 (05:25→17:38)
[2022-01-28] MEDS: FUROSEMIDE 40MG/4ML VIAL IVP SCH ×2 (05:25→17:38)
[2022-01-28 06:08] LABS: BASOPHILS % 0.1 % (0.0-2.0); EOSINOPHILS % 0.1 % (0.0-5.0); HEMATOCRIT. 27.2 % (36.0-48.0); LYMPHOCYTES % 9.3 % (20.0-50.0); MEAN CORPUSCULAR HEMOGLOBIN 32.6 pg (28.0-32.0); MEAN CORPUSCULAR VOLUME 98.3 fL (81.0-99.0); MEAN PLATELET VOLUME 8.5 fl (7.4-10.4); MONOCYTES % 2.8 % (2.0-8.0); NEUTROPHILS % 87.7 % (40.0-76.0); PLATELET 234 x1000/uL (130-400); RED BLOOD CELL COUNT 2.77 mill/uL (4.2-5.4); RED CELL DISTRIBUTION WIDTH 22.8 % (11.6-14.6)
[2022-01-28 06:52] LABS: CHLORIDE 89 mEq/L (98-107)
[2022-01-28] MEDS: SPIRONOLACTONE 25MG TABLET PO SCH (08:47)
[2022-01-28] MEDS ORDERED: DEXT 5%/0.9% NACL 1,000 ML IV SCH (10:45)
[2022-01-28] MEDS ORDERED: KCL 10MEQ/50ML PREMIX 50 ML IV NR (11:00)
[2022-01-28] MEDS: MIDODRINE HCL 5MG TABLET PO SCH (17:38)
[2022-01-28] MEDS: LEVOFLOXACIN 500MG PREMIX 100 ML IV SCH (21:49)
[2022-01-29] VITALS (96 sets, daily range): BP systolic 86–136; BP diastolic 44–97
[2022-01-29] MEDS: IPRATROPIUM/ALBUTEROL 0.5-3(2.5)MG/3ML NEB HHN SCH ×6 (01:00→20:10)
[2022-01-29] MEDS: METRONIDAZOLE 500 MG PREMIX 100 ML IV SCH ×3 (05:38→21:22)
[2022-01-29] MEDS: HYDROCODONE/ACETAMINOPHEN 10/325MG TABLET PO PRN ×2 (05:39→11:36)
[2022-01-29 05:50] LABS: BASOPHILS % 0.1 % (0.0-2.0); EOSINOPHILS % 0.2 % (0.0-5.0); HEMATOCRIT. 27.1 % (36.0-48.0); HEMOGLOBIN. 8.9 g/dL (12.0-16.0); LYMPHOCYTES % 10.6 % (20.0-50.0); MEAN CORPUSCULAR HEMOGLOBIN 33.5 pg (28.0-32.0); MEAN CORPUSCULAR VOLUME 101.9 fL (81.0-99.0); MEAN PLATELET VOLUME 8.5 fl (7.4-10.4); MONOCYTES % 2.8 % (2.0-8.0); NEUTROPHILS % 86.3 % (40.0-76.0); PLATELET 261 x1000/uL (130-400); RED BLOOD CELL COUNT 2.66 mill/uL (4.2-5.4); RED CELL DISTRIBUTION WIDTH 24.5 % (11.6-14.6)
[2022-01-29 06:00] LABS: CHLORIDE 94 mEq/L (98-107)
[2022-01-29] MEDS: PANTOPRAZOLE SODIUM 40 MG/VIAL IV SCH ×2 (06:54→18:11)
[2022-01-29] MEDS: FUROSEMIDE 40MG/4ML VIAL IVP SCH ×2 (06:55→18:11)
[2022-01-29] MEDS ORDERED: DEXTROSE 50% WATER 50ML SYRINGE IV ONE ×2 (08:44→08:45)
[2022-01-29] MEDS: MIDODRINE HCL 5MG TABLET PO SCH ×2 (08:50→18:11)
[2022-01-29] MEDS: SPIRONOLACTONE 25MG TABLET PO SCH (08:50)
[2022-01-29] MEDS ORDERED: CLONIDINE HCL 0.1MG/24HR PATCH TD SCH (09:00)
[2022-01-29] MEDS: DEXT 5%/0.45% NACL 1000ML 1,000 ML IV SCH (15:02)
[2022-01-29] MEDS: LEVOFLOXACIN 500MG PREMIX 100 ML IV SCH (21:22)
[2022-01-29] MEDS: HEPARIN 25,000 UNITS PREMIX 250 ML IV SCH (21:28)
[2022-01-29] MEDS: ACETAMINOPHEN 325MG TABLET PO PRN (22:18)
[2022-01-30] VITALS (98 sets, daily range): BP systolic 70–140; BP diastolic 31–106
[2022-01-30] MEDS: DEXTROSE 50% WATER 50ML SYRINGE IV PRN ×2 (01:30→06:46)
[2022-01-30] MEDS: IPRATROPIUM/ALBUTEROL 0.5-3(2.5)MG/3ML NEB HHN SCH ×5 (01:54→21:23)
[2022-01-30 04:56] LABS: BASOPHILS % 0.2 % (0.0-2.0); EOSINOPHILS % 0.4 % (0.0-5.0); HEMATOCRIT. 26.3 % (36.0-48.0); HEMOGLOBIN. 8.5 g/dL (12.0-16.0); LYMPHOCYTES % 10.3 % (20.0-50.0); MEAN CORPUSCULAR HEMOGLOBIN 32.8 pg (28.0-32.0); MEAN CORPUSCULAR VOLUME 101.3 fL (81.0-99.0); MEAN PLATELET VOLUME 8.4 fl (7.4-10.4); MONOCYTES % 2.9 % (2.0-8.0); NEUTROPHILS % 86.2 % (40.0-76.0); PLATELET 285 x1000/uL (130-400); RED CELL DISTRIBUTION WIDTH 23.3 % (11.6-14.6)
[2022-01-30 05:00] LABS: CHLORIDE 94 mEq/L (98-107)
[2022-01-30] MEDS: METRONIDAZOLE 500 MG PREMIX 100 ML IV SCH ×2 (05:26→13:09)
[2022-01-30] MEDS: PANTOPRAZOLE SODIUM 40 MG/VIAL IV SCH ×2 (06:45→17:04)
[2022-01-30] MEDS: FUROSEMIDE 40MG/4ML VIAL IVP SCH (06:45)
[2022-01-30] MEDS: BLOOD SUGAR DIAGNOSTIC STRIP TEST SCH ×3 (06:46→17:20)
[2022-01-30] MEDS: SPIRONOLACTONE 25MG TABLET PO SCH (09:19)
[2022-01-30] MEDS: MIDODRINE HCL 5MG TABLET PO SCH ×2 (09:19→17:05)
[2022-01-30] MEDS ORDERED: NALOXONE HCL 0.4MG/ML VIAL IV PRN (11:00)
[2022-01-30] MEDS: HYDROCODONE/ACETAMINOPHEN 5/325MG TABLET PO PRN ×2 (11:07→15:39)
[2022-01-30] MEDS: ENOXAPARIN 80MG/0.8ML SYR SUBCUT SCH (13:09)
[2022-01-30] MEDS ORDERED: BISACODYL 10MG SUPP PR PRN (17:00)
[2022-01-30] MEDS ORDERED: SORBITOL 70% SOLN 30ML PO PRN (17:00)
[2022-01-30] MEDS: DEXT 5%/0.45% NACL 1000ML 1,000 ML IV SCH (17:05)
[2022-01-30] MEDS: LEVOFLOXACIN 500MG TABLET PO SCH (21:38)
[2022-01-30] MEDS: METRONIDAZOLE 500MG TABLET PO SCH (22:17)
[2022-01-31] VITALS (71 sets, daily range): BP systolic 75–151; BP diastolic 39–79
[2022-01-31] MEDS: BLOOD SUGAR DIAGNOSTIC STRIP TEST SCH ×4 (00:04→17:51)
[2022-01-31] MEDS: HYDROCODONE/ACETAMINOPHEN 5/325MG TABLET PO PRN ×5 (00:06→20:32)
[2022-01-31] MEDS: DEXTROSE 50% WATER 50ML SYRINGE IV PRN (00:28)
[2022-01-31] MEDS: IPRATROPIUM/ALBUTEROL 0.5-3(2.5)MG/3ML NEB HHN SCH ×6 (00:39→21:11)
[2022-01-31] MEDS: ENOXAPARIN 80MG/0.8ML SYR SUBCUT SCH ×2 (01:47→12:07)
[2022-01-31 05:33] LABS: BASOPHILS % 0.2 % (0.0-2.0); EOSINOPHILS % 0.8 % (0.0-5.0); HEMATOCRIT. 24.3 % (36.0-48.0); HEMOGLOBIN. 7.8 g/dL (12.0-16.0); LYMPHOCYTES % 14.3 % (20.0-50.0); MEAN CORPUSCULAR HEMOGLOBIN 33.2 pg (28.0-32.0); MEAN CORPUSCULAR VOLUME 103.3 fL (81.0-99.0); MEAN PLATELET VOLUME 8.3 fl (7.4-10.4); MONOCYTES % 3.4 % (2.0-8.0); NEUTROPHILS % 81.3 % (40.0-76.0); PLATELET 251 x1000/uL (130-400); RED BLOOD CELL COUNT 2.35 mill/uL (4.2-5.4); RED CELL DISTRIBUTION WIDTH 23.3 % (11.6-14.6)
[2022-01-31 05:59] LABS: CHLORIDE 94 mEq/L (98-107)
[2022-01-31] MEDS: PANTOPRAZOLE SODIUM 40 MG/VIAL IV SCH ×2 (07:02→17:53)
[2022-01-31] MEDS: METRONIDAZOLE 500MG TABLET PO SCH ×3 (07:03→20:29)
[2022-01-31] MEDS: FUROSEMIDE 40MG/4ML VIAL IVP SCH (08:01)
[2022-01-31] MEDS: SPIRONOLACTONE 25MG TABLET PO SCH (08:02)
[2022-01-31] MEDS: MIDODRINE HCL 5MG TABLET PO SCH ×2 (08:02→17:52)
[2022-01-31] MEDS: BISACODYL 5MG TABLET PO SCH (08:03)
[2022-01-31] MEDS: NOREPINEPHRINE 32 MG in DEXT 5% WATER 218 ML IV PRN (10:11)
[2022-01-31] MEDS ORDERED: FUROSEMIDE 20MG/2ML VIAL IVP SCH (11:00)
[2022-01-31] MEDS ORDERED: POTASSIUM CHLORIDE 20MEQ/PACKET PO SCH (11:00)
[2022-01-31] MEDS ORDERED: DIPHENHYDRAMINE 50MG/ML VIAL IV NR (18:30)
[2022-01-31] MEDS ORDERED: LORAZEPAM 2MG/ML CPJ IV NR (18:30)
[2022-01-31] MEDS ORDERED: HALOPERIDOL LACTATE 5MG/ML VIAL IM NR (18:30)
[2022-01-31] MEDS: LEVOFLOXACIN 500MG TABLET PO SCH (20:33)
[2022-02-01] VITALS (13 sets, daily range): BP systolic 84–127; BP diastolic 50–68
[2022-02-01] MEDS: IPRATROPIUM/ALBUTEROL 0.5-3(2.5)MG/3ML NEB HHN SCH ×5 (01:09→20:35)
[2022-02-01] MEDS: HYDROCODONE/ACETAMINOPHEN 5/325MG TABLET PO PRN ×5 (01:21→21:51)
[2022-02-01] MEDS: ENOXAPARIN 80MG/0.8ML SYR SUBCUT SCH ×2 (01:22→17:55)
[2022-02-01] MEDS: PANTOPRAZOLE SODIUM 40 MG/VIAL IV SCH ×2 (05:09→17:55)
[2022-02-01] MEDS: METRONIDAZOLE 500MG TABLET PO SCH ×3 (05:09→21:51)
[2022-02-01] MEDS: BLOOD SUGAR DIAGNOSTIC STRIP TEST SCH ×4 (05:24→17:59)
[2022-02-01 07:13] LABS: BASOPHILS % 0.2 % (0.0-2.0); EOSINOPHILS % 0.6 % (0.0-5.0); HEMATOCRIT. 24.8 % (36.0-48.0); HEMOGLOBIN. 7.9 g/dL (12.0-16.0); LYMPHOCYTES % 11.2 % (20.0-50.0); MEAN CORPUSCULAR HEMOGLOBIN 33.2 pg (28.0-32.0); MEAN CORPUSCULAR VOLUME 103.9 fL (81.0-99.0); MEAN PLATELET VOLUME 8.6 fl (7.4-10.4); MONOCYTES % 3.6 % (2.0-8.0); NEUTROPHILS % 84.4 % (40.0-76.0); PLATELET 243 x1000/uL (130-400); RED BLOOD CELL COUNT 2.39 mill/uL (4.2-5.4); RED CELL DISTRIBUTION WIDTH 22.9 % (11.6-14.6)
[2022-02-01 08:15] LABS: CHLORIDE 95 mEq/L (98-107)
[2022-02-01] MEDS: FUROSEMIDE 40MG/4ML VIAL IVP SCH (09:59)
[2022-02-01] MEDS: MIDODRINE HCL 5MG TABLET PO SCH ×2 (10:00→18:00)
[2022-02-01] MEDS: SPIRONOLACTONE 25MG TABLET PO SCH (10:01)
[2022-02-01] MEDS: BISACODYL 5MG TABLET PO SCH (10:16)
[2022-02-01 17:39] LABS: HEPATITIS B SURFACE ANTIGEN NEGATIVE
[2022-02-01] MEDS: TRAMADOL 50MG TABLET PO SCH (17:58)
[2022-02-01] MEDS: LEVOFLOXACIN 500MG TABLET PO SCH (21:52)
[2022-02-02] VITALS (27 sets, daily range): BP systolic 86–121; BP diastolic 46–69
[2022-02-02] MEDS: ENOXAPARIN 80MG/0.8ML SYR SUBCUT SCH ×3 (00:33→23:55)
[2022-02-02] MEDS: TRAMADOL 50MG TABLET PO SCH ×4 (00:35→23:55)
[2022-02-02] MEDS: IPRATROPIUM/ALBUTEROL 0.5-3(2.5)MG/3ML NEB HHN SCH ×6 (00:40→20:10)
[2022-02-02] MEDS: HYDROCODONE/ACETAMINOPHEN 5/325MG TABLET PO PRN ×2 (05:02→21:16)
[2022-02-02] MEDS: METRONIDAZOLE 500MG TABLET PO SCH ×3 (05:03→21:05)
[2022-02-02] MEDS: BLOOD SUGAR DIAGNOSTIC STRIP TEST SCH ×5 (05:03→23:55)
[2022-02-02] MEDS: PANTOPRAZOLE SODIUM 40 MG/VIAL IV SCH ×2 (05:03→18:42)
[2022-02-02 07:15] LABS: BASOPHILS % 0.4 % (0.0-2.0); EOSINOPHILS % 0.8 % (0.0-5.0); HEMATOCRIT. 24.2 % (36.0-48.0); HEMOGLOBIN. 7.7 g/dL (12.0-16.0); LYMPHOCYTES % 10.2 % (20.0-50.0); MEAN CORPUSCULAR HEMOGLOBIN 32.8 pg (28.0-32.0); MEAN CORPUSCULAR VOLUME 103.4 fL (81.0-99.0); MEAN PLATELET VOLUME 8.3 fl (7.4-10.4); MONOCYTES % 4.1 % (2.0-8.0); NEUTROPHILS % 84.5 % (40.0-76.0); PLATELET 224 x1000/uL (130-400); RED BLOOD CELL COUNT 2.34 mill/uL (4.2-5.4); RED CELL DISTRIBUTION WIDTH 22.4 % (11.6-14.6)
[2022-02-02] MEDS: SPIRONOLACTONE 25MG TABLET PO SCH (09:26)
[2022-02-02] MEDS: MIDODRINE HCL 5MG TABLET PO SCH ×2 (09:27→18:42)
[2022-02-02] MEDS: FUROSEMIDE 40MG/4ML VIAL IVP SCH (09:28)
[2022-02-02] MEDS: BISACODYL 5MG TABLET PO SCH (09:39)
[2022-02-02] MEDS ORDERED: SODIUM CHLORIDE 0.9% 500 ML IV SCH (12:00)
[2022-02-02] MEDS ORDERED: SODIUM CHLORIDE 0.9% 500 ML IV ONE (12:00)
[2022-02-02] MEDS: LEVOFLOXACIN 500MG TABLET PO SCH (21:05)
[2022-02-03] VITALS (8 sets, daily range): BP systolic 89–116; BP diastolic 46–65
[2022-02-03] MEDS: IPRATROPIUM/ALBUTEROL 0.5-3(2.5)MG/3ML NEB HHN SCH ×6 (00:24→20:28)
[2022-02-03] MEDS: MORPHINE SULFATE 2 MG/ML CPJ (NOT FOR IM USE) IV PRN (04:09)
[2022-02-03] MEDS: PANTOPRAZOLE SODIUM 40 MG/VIAL IV SCH ×2 (05:14→18:52)
[2022-02-03] MEDS: BLOOD SUGAR DIAGNOSTIC STRIP TEST SCH (05:14)
[2022-02-03] MEDS: METRONIDAZOLE 500MG TABLET PO SCH (05:14)
[2022-02-03 06:59] LABS: BASOPHILS % 0.1 % (0.0-2.0); EOSINOPHILS % 0.6 % (0.0-5.0); HEMATOCRIT. 22.4 % (36.0-48.0); HEMOGLOBIN. 7.3 g/dL (12.0-16.0); LYMPHOCYTES % 14.3 % (20.0-50.0); MEAN CORPUSCULAR HEMOGLOBIN 33.5 pg (28.0-32.0); MEAN CORPUSCULAR VOLUME 103.2 fL (81.0-99.0); MEAN PLATELET VOLUME 8.3 fl (7.4-10.4); PLATELET 201 x1000/uL (130-400); RED BLOOD CELL COUNT 2.17 mill/uL (4.2-5.4)
[2022-02-03] MEDS ORDERED: PROPOFOL 200MG/20ML VIAL IV ONE (08:45)
[2022-02-03] MEDS: TRAMADOL 50MG TABLET PO SCH (08:45)
[2022-02-03] MEDS ORDERED: LIDOCAINE HCL 1% 10 MG/ML 10ML VIAL ONE (08:47)
[2022-02-03] MEDS ORDERED: ONDANSETRON HCL 4MG/2ML INJ ONE (08:50)
[2022-02-03] MEDS ORDERED: DEXAMETHASONE 4MG/ML 1ML VIAL ONE (08:50)
[2022-02-03] MEDS ORDERED: MIDAZOLAM HCL 2 MG/2 ML VIAL ONE (08:53)
[2022-02-03 08:56] LABS: CHLORIDE 96 mEq/L (98-107)
[2022-02-03] MEDS: FUROSEMIDE 40MG/4ML VIAL IVP SCH (09:00)
[2022-02-03] MEDS: BISACODYL 5MG TABLET PO SCH (09:00)
[2022-02-03] MEDS: MIDODRINE HCL 5MG TABLET PO SCH ×2 (09:00→17:00)
[2022-02-03] MEDS: SPIRONOLACTONE 25MG TABLET PO SCH (09:00)
[2022-02-03] MEDS ORDERED: BUPIVACAINE HCL/PF 0.5% (5MG/ML) 10ML ONE (09:03)
[2022-02-03] MEDS ORDERED: CEFAZOLIN SODIUM 1000MG/VIAL ONE (10:06)
[2022-02-03] MEDS ORDERED: FENTANYL CITRATE/PF 50MCG/ML 2ML VIAL IV PRN (10:15)
[2022-02-03] MEDS ORDERED: RACEPINEPHRINE 2.25% 0.5ML NEB VIAL HHN NR (10:45)
[2022-02-03 11:44] LABS: BG BASE EXCESS 2.4 mmol/L (-2.0-2.0); BG CARBOXYHEMOGLOBIN 0.3 % (0.5-1.5); BG HCO3 ACT 27.4 mmol/L (22.0-26.0); BG METHEMOGLOBIN 0.2 % (0.0-1.5); BG OXYHEMOGLOBIN 97.5 % (94.0-97.0); BG PCO2 44.7 mmHg (35.0-45.0); BG PH 7.405 (7.350-7.450); BG PO2 136.2 mmHg (75.0-100.0); BG SAMPLE SITE RIGHT RADIAL; BG TOTAL HEMOGLOBIN 8.7 g/dL (12.0-18.0); BG VENT MODE MASK - BIPAP
[2022-02-03] MEDS ORDERED: SODIUM CHLORIDE 0.9% 500 ML IV ONE (12:00)
[2022-02-03] MEDS ORDERED: IPRATROPIUM/ALBUTEROL 0.5-3(2.5)MG/3ML NEB HHN NR (12:15)
[2022-02-03] MEDS ORDERED: LORAZEPAM 2MG/ML CPJ IV NR (13:00)
[2022-02-03 13:29] LABS: BG BASE EXCESS 1.8 mmol/L (-2.0-2.0); BG CARBOXYHEMOGLOBIN 0.2 % (0.5-1.5); BG DEOXYHEMOGLOBIN 0.3 % (0.0-5.0); BG FRACTION INSPIRED OXYGEN 100; BG HCO3 ACT 24.7 mmol/L (22.0-26.0); BG METHEMOGLOBIN 0.2 % (0.0-1.5); BG OXYGEN SATURATION 99.7 % (92.0-98.5); BG OXYHEMOGLOBIN 99.3 % (94.0-97.0); BG PCO2 31.5 mmHg (35.0-45.0); BG PH 7.512 (7.350-7.450); BG PO2 330.9 mmHg (75.0-100.0); BG SAMPLE SITE RIGHT RADIAL; BG TOTAL HEMOGLOBIN 8.3 g/dL (12.0-18.0); BG VENT MODE MASK - BIPAP
[2022-02-03] MEDS ORDERED: PHENYLEPHRINE 50 MG in DEXT 5% WATER 245 ML IV PRN (14:20)
[2022-02-03 19:26] LABS: CHLORIDE 99 mEq/L (98-107)
[2022-02-03] MEDS: LEVOFLOXACIN 500MG TABLET PO SCH (22:07)
[2022-02-03] MEDS: HYDROCODONE/ACETAMINOPHEN 5/325MG TABLET PO PRN (22:20)
[2022-02-04] VITALS (16 sets, daily range): BP systolic 82–114; BP diastolic 40–88
[2022-02-04] MEDS: IPRATROPIUM/ALBUTEROL 0.5-3(2.5)MG/3ML NEB HHN SCH ×6 (00:31→21:49)
[2022-02-04] MEDS: TRAMADOL 50MG TABLET PO SCH ×3 (01:32→18:06)
[2022-02-04] MEDS: METRONIDAZOLE 500MG TABLET PO SCH ×4 (01:39→21:20)
[2022-02-04] MEDS: ENOXAPARIN 80MG/0.8ML SYR SUBCUT SCH (01:39)
[2022-02-04] MEDS: PANTOPRAZOLE SODIUM 40 MG/VIAL IV SCH ×2 (05:17→18:05)
[2022-02-04] MEDS: BLOOD SUGAR DIAGNOSTIC STRIP TEST SCH ×2 (05:17)
[2022-02-04] MEDS: DEXTROSE 50% WATER 50ML SYRINGE IV PRN (05:17)
[2022-02-04] MEDS: MORPHINE SULFATE 2 MG/ML CPJ (NOT FOR IM USE) IV PRN ×2 (06:22→21:26)
[2022-02-04 07:44] LABS: EOSINOPHILS % 0.1 % (0.0-5.0); HEMATOCRIT. 21.4 % (36.0-48.0); LYMPHOCYTES % 16.7 % (20.0-50.0); MEAN CORPUSCULAR HEMOGLOBIN 33.4 pg (28.0-32.0); MEAN CORPUSCULAR VOLUME 105.7 fL (81.0-99.0); MEAN PLATELET VOLUME 8.7 fl (7.4-10.4); MONOCYTES % 4.8 % (2.0-8.0); NEUTROPHILS % 78.4 % (40.0-76.0); PLATELET 203 x1000/uL (130-400); RED BLOOD CELL COUNT 2.02 mill/uL (4.2-5.4); RED CELL DISTRIBUTION WIDTH 22.7 % (11.6-14.6)
[2022-02-04] MEDS: BISACODYL 5MG TABLET PO SCH (08:51)
[2022-02-04] MEDS: FUROSEMIDE 40MG/4ML VIAL IVP SCH (08:51)
[2022-02-04] MEDS: MIDODRINE HCL 5MG TABLET PO SCH ×2 (08:51→18:05)
[2022-02-04] MEDS: SPIRONOLACTONE 25MG TABLET PO SCH (08:52)
[2022-02-04 09:11] LABS: HEMOGLOBIN. 6.8 g/dL (12.0-16.0)
[2022-02-04 10:45] LABS: CHLORIDE 102 mEq/L (98-107)
[2022-02-04] MEDS ORDERED: LOPERAMIDE 2MG/15ML UDC PO PRN (19:30)
[2022-02-04] MEDS: LEVOFLOXACIN 500MG TABLET PO SCH (21:20)
[2022-02-05] VITALS (17 sets, daily range): BP systolic 86–119; BP diastolic 53–84
[2022-02-05] MEDS: TRAMADOL 50MG TABLET PO SCH ×3 (00:18→17:40)
[2022-02-05] MEDS: BLOOD SUGAR DIAGNOSTIC STRIP TEST SCH ×4 (00:18→17:32)
[2022-02-05] MEDS: IPRATROPIUM/ALBUTEROL 0.5-3(2.5)MG/3ML NEB HHN SCH ×6 (00:48→20:52)
[2022-02-05] MEDS: MORPHINE SULFATE 2 MG/ML CPJ (NOT FOR IM USE) IV PRN ×2 (03:40→10:32)
[2022-02-05] MEDS: METRONIDAZOLE 500MG TABLET PO SCH ×3 (06:36→21:57)
[2022-02-05] MEDS: PANTOPRAZOLE SODIUM 40 MG/VIAL IV SCH ×2 (06:36→17:39)
[2022-02-05] MEDS: BISACODYL 5MG TABLET PO SCH (08:37)
[2022-02-05] MEDS: SPIRONOLACTONE 25MG TABLET PO SCH (08:37)
[2022-02-05] MEDS: ACETAMINOPHEN 325MG TABLET PO PRN ×2 (08:38→13:53)
[2022-02-05] MEDS: MIDODRINE HCL 5MG TABLET PO SCH ×2 (08:39→17:41)
[2022-02-05] MEDS: FUROSEMIDE 40MG/4ML VIAL IVP SCH (08:39)
[2022-02-05 08:45] LABS: CHLORIDE 106 mEq/L (98-107)
[2022-02-05 11:08] LABS: BASOPHILS % 0.2 % (0.0-2.0); EOSINOPHILS % 0.4 % (0.0-5.0); HEMATOCRIT. 29.9 % (36.0-48.0); LYMPHOCYTES % 15.2 % (20.0-50.0); MEAN CORPUSCULAR HEMOGLOBIN 32.3 pg (28.0-32.0); MEAN CORPUSCULAR VOLUME 97.6 fL (81.0-99.0); MEAN PLATELET VOLUME 7.9 fl (7.4-10.4); MONOCYTES % 3.7 % (2.0-8.0); NEUTROPHILS % 80.5 % (40.0-76.0); PLATELET 202 x1000/uL (130-400); RED BLOOD CELL COUNT 3.06 mill/uL (4.2-5.4); RED CELL DISTRIBUTION WIDTH 19.8 % (11.6-14.6)
[2022-02-05 11:09] LABS: HEMOGLOBIN. 9.9 g/dL (12.0-16.0)
[2022-02-05 11:20] LABS: INR 1.2; PROTHROMBIN TIME 13.2 sec (9.6-11.0)
[2022-02-05] MEDS: LEVOFLOXACIN 500MG TABLET PO SCH (21:57)
[2022-02-06] VITALS (14 sets, daily range): BP systolic 99–114; BP diastolic 43–67
[2022-02-06] MEDS: TRAMADOL 50MG TABLET PO SCH ×3 (00:29→17:18)
[2022-02-06] MEDS: BLOOD SUGAR DIAGNOSTIC STRIP TEST SCH ×4 (00:30→18:16)
[2022-02-06] MEDS: IPRATROPIUM/ALBUTEROL 0.5-3(2.5)MG/3ML NEB HHN SCH ×5 (00:39→16:44)
[2022-02-06] MEDS: METRONIDAZOLE 500MG TABLET PO SCH ×3 (05:21→21:13)
[2022-02-06] MEDS: PANTOPRAZOLE SODIUM 40 MG/VIAL IV SCH ×2 (05:21→17:09)
[2022-02-06] MEDS: MORPHINE SULFATE 2 MG/ML CPJ (NOT FOR IM USE) IV PRN ×2 (05:22→14:14)
[2022-02-06] MEDS: MIDODRINE HCL 5MG TABLET PO SCH ×2 (08:58→17:31)
[2022-02-06] MEDS: BISACODYL 5MG TABLET PO SCH (08:59)
[2022-02-06] MEDS: FUROSEMIDE 40MG/4ML VIAL IVP SCH (09:01)
[2022-02-06] MEDS: SPIRONOLACTONE 25MG TABLET PO SCH (09:01)
[2022-02-06] MEDS: LEVOFLOXACIN 500MG TABLET PO SCH (21:14)
[2022-02-06] MEDS: ACETAMINOPHEN 325MG TABLET PO PRN (21:14)
[2022-02-07] VITALS (10 sets, daily range): BP systolic 93–134; BP diastolic 52–73
[2022-02-07] MEDS: IPRATROPIUM/ALBUTEROL 0.5-3(2.5)MG/3ML NEB HHN SCH ×6 (00:22→21:10)
[2022-02-07] MEDS: ENOXAPARIN 80MG/0.8ML SYR SUBCUT SCH ×3 (01:00→13:19)
[2022-02-07] MEDS: BLOOD SUGAR DIAGNOSTIC STRIP TEST SCH ×4 (06:41→17:13)
[2022-02-07] MEDS: PANTOPRAZOLE SODIUM 40 MG/VIAL IV SCH ×2 (06:57→17:16)
[2022-02-07] MEDS: FUROSEMIDE 40MG/4ML VIAL IVP SCH (08:37)
[2022-02-07] MEDS: MIDODRINE HCL 5MG TABLET PO SCH ×2 (08:40→17:16)
[2022-02-07] MEDS: TRAMADOL 50MG TABLET PO PRN (08:40)
[2022-02-07] MEDS: BISACODYL 5MG TABLET PO SCH (08:41)
[2022-02-07] MEDS: SPIRONOLACTONE 25MG TABLET PO SCH (09:54)
[2022-02-07] MEDS: MORPHINE SULFATE 2 MG/ML CPJ (NOT FOR IM USE) IV PRN ×2 (13:19→21:18)
[2022-02-07 18:39] LABS: BASOPHILS % 0.1 % (0.0-2.0); HEMATOCRIT. 28.3 % (36.0-48.0); HEMOGLOBIN. 9.4 g/dL (12.0-16.0); LYMPHOCYTES % 12.9 % (20.0-50.0); MEAN CORPUSCULAR HEMOGLOBIN 33.9 pg (28.0-32.0); MEAN CORPUSCULAR VOLUME 101.9 fL (81.0-99.0); MEAN PLATELET VOLUME 7.7 fl (7.4-10.4); MONOCYTES % 4.5 % (2.0-8.0); NEUTROPHILS % 81.5 % (40.0-76.0); PLATELET 249 x1000/uL (130-400); RED BLOOD CELL COUNT 2.77 mill/uL (4.2-5.4); RED CELL DISTRIBUTION WIDTH 24.2 % (11.6-14.6)
[2022-02-07 18:59] LABS: CHLORIDE 104 mEq/L (98-107)
[2022-02-08] VITALS (11 sets, daily range): BP systolic 97–122; BP diastolic 55–85
[2022-02-08] MEDS: ENOXAPARIN 80MG/0.8ML SYR SUBCUT SCH ×2 (00:33→13:02)
[2022-02-08] MEDS: IPRATROPIUM/ALBUTEROL 0.5-3(2.5)MG/3ML NEB HHN SCH ×6 (00:33→21:19)
[2022-02-08] MEDS: BLOOD SUGAR DIAGNOSTIC STRIP TEST SCH ×4 (00:38→18:26)
[2022-02-08] MEDS: MORPHINE SULFATE 2 MG/ML CPJ (NOT FOR IM USE) IV PRN ×4 (04:17→16:24)
[2022-02-08 06:15] LABS: BASOPHILS % 0.2 % (0.0-2.0); EOSINOPHILS % 0.9 % (0.0-5.0); HEMATOCRIT. 29.4 % (36.0-48.0); HEMOGLOBIN. 9.7 g/dL (12.0-16.0); LYMPHOCYTES % 13.3 % (20.0-50.0); MEAN CORPUSCULAR HEMOGLOBIN 33.7 pg (28.0-32.0); MEAN CORPUSCULAR VOLUME 101.5 fL (81.0-99.0); MEAN PLATELET VOLUME 7.9 fl (7.4-10.4); MONOCYTES % 5.7 % (2.0-8.0); NEUTROPHILS % 79.9 % (40.0-76.0); PLATELET 272 x1000/uL (130-400); RED BLOOD CELL COUNT 2.89 mill/uL (4.2-5.4); RED CELL DISTRIBUTION WIDTH 24.3 % (11.6-14.6)
[2022-02-08] MEDS: PANTOPRAZOLE SODIUM 40 MG/VIAL IV SCH ×2 (06:26→17:37)
[2022-02-08 08:23] LABS: CHLORIDE 103 mEq/L (98-107)
[2022-02-08] MEDS: FUROSEMIDE 40MG/4ML VIAL IVP SCH (08:50)
[2022-02-08] MEDS: SPIRONOLACTONE 25MG TABLET PO SCH (08:50)
[2022-02-08] MEDS: BISACODYL 5MG TABLET PO SCH (08:51)
[2022-02-08] MEDS: MIDODRINE HCL 5MG TABLET PO SCH ×2 (08:51→16:17)
[2022-02-08] MEDS ORDERED: NALOXONE HCL 0.4MG/ML VIAL IV PRN (15:00)
[2022-02-08] MEDS ORDERED: POTASSIUM CHLORIDE 20MEQ TABLET SR PO NR (15:00)
[2022-02-08 18:46] LABS: PLATELET ESTIMATE NORMAL
[2022-02-08] MEDS: ACETAMINOPHEN 325MG TABLET PO PRN (22:17)
[2022-02-09] VITALS (14 sets, daily range): BP systolic 91–122; BP diastolic 53–74
[2022-02-09] MEDS: BLOOD SUGAR DIAGNOSTIC STRIP TEST SCH ×4 (00:57→17:52)
[2022-02-09] MEDS: ENOXAPARIN 100MG/ML SYR SUBCUT SCH ×2 (00:58→14:25)
[2022-02-09] MEDS: IPRATROPIUM/ALBUTEROL 0.5-3(2.5)MG/3ML NEB HHN SCH ×7 (01:09→23:54)
[2022-02-09] MEDS: PANTOPRAZOLE SODIUM 40 MG/VIAL IV SCH ×2 (06:41→17:52)
[2022-02-09] MEDS: BISACODYL 5MG TABLET PO SCH (08:36)
[2022-02-09] MEDS: SPIRONOLACTONE 25MG TABLET PO SCH (08:36)
[2022-02-09] MEDS: MIDODRINE HCL 5MG TABLET PO SCH ×2 (08:37→17:52)
[2022-02-09] MEDS: TRAMADOL 50MG TABLET PO PRN (08:37)
[2022-02-09] MEDS: FUROSEMIDE 40MG/4ML VIAL IVP SCH (08:37)
[2022-02-09 08:56] LABS: BASOPHILS % 0.2 % (0.0-2.0); EOSINOPHILS % 0.6 % (0.0-5.0); HEMATOCRIT. 30.2 % (36.0-48.0); HEMOGLOBIN. 9.8 g/dL (12.0-16.0); LYMPHOCYTES % 16.7 % (20.0-50.0); MEAN CORPUSCULAR HEMOGLOBIN 33.6 pg (28.0-32.0); MEAN CORPUSCULAR VOLUME 103.3 fL (81.0-99.0); MEAN PLATELET VOLUME 8.2 fl (7.4-10.4); MONOCYTES % 6.1 % (2.0-8.0); NEUTROPHILS % 76.4 % (40.0-76.0); PLATELET 282 x1000/uL (130-400); RED BLOOD CELL COUNT 2.92 mill/uL (4.2-5.4); RED CELL DISTRIBUTION WIDTH 24.7 % (11.6-14.6)
[2022-02-09 09:47] LABS: CHLORIDE 104 mEq/L (98-107)
[2022-02-10] VITALS (7 sets, daily range): BP systolic 96–117; BP diastolic 23–64
[2022-02-10] MEDS: MORPHINE SULFATE 2 MG/ML CPJ (NOT FOR IM USE) IV PRN ×3 (01:49→17:03)
[2022-02-10] MEDS: ENOXAPARIN 100MG/ML SYR SUBCUT SCH ×3 (01:49→23:53)
[2022-02-10] MEDS: IPRATROPIUM/ALBUTEROL 0.5-3(2.5)MG/3ML NEB HHN SCH ×5 (04:02→21:08)
[2022-02-10] MEDS: PANTOPRAZOLE SODIUM 40 MG/VIAL IV SCH ×2 (06:00→17:01)
[2022-02-10] MEDS: BLOOD SUGAR DIAGNOSTIC STRIP TEST SCH ×5 (06:00→23:43)
[2022-02-10] MEDS: FUROSEMIDE 40MG/4ML VIAL IVP SCH ×2 (09:00→09:13)
[2022-02-10 09:06] LABS: BASOPHILS % 0.1 % (0.0-2.0); EOSINOPHILS % 1.9 % (0.0-5.0); HEMATOCRIT. 27.5 % (36.0-48.0); HEMOGLOBIN. 8.9 g/dL (12.0-16.0); LYMPHOCYTES % 16.7 % (20.0-50.0); MEAN CORPUSCULAR HEMOGLOBIN 33.8 pg (28.0-32.0); MEAN CORPUSCULAR VOLUME 104.1 fL (81.0-99.0); MEAN PLATELET VOLUME 8.1 fl (7.4-10.4); MONOCYTES % 5.2 % (2.0-8.0); NEUTROPHILS % 76.1 % (40.0-76.0); PLATELET 294 x1000/uL (130-400); RED BLOOD CELL COUNT 2.64 mill/uL (4.2-5.4); RED CELL DISTRIBUTION WIDTH 24.9 % (11.6-14.6)
[2022-02-10] MEDS: BISACODYL 5MG TABLET PO SCH (09:13)
[2022-02-10] MEDS: SPIRONOLACTONE 25MG TABLET PO SCH (09:15)
[2022-02-10] MEDS: MIDODRINE HCL 5MG TABLET PO SCH ×2 (09:16→17:02)
[2022-02-10 09:20] LABS: CHLORIDE 104 mEq/L (98-107)
[2022-02-10] MEDS ORDERED: SODIUM CHLORIDE 0.9% 500 ML IV ONE (19:45)
[2022-02-11] VITALS (7 sets, daily range): BP systolic 88–131; BP diastolic 54–76
[2022-02-11] MEDS: IPRATROPIUM/ALBUTEROL 0.5-3(2.5)MG/3ML NEB HHN SCH ×6 (00:36→21:30)
[2022-02-11] MEDS: MORPHINE SULFATE 2 MG/ML CPJ (NOT FOR IM USE) IV PRN ×4 (03:56→22:56)
[2022-02-11] MEDS: BLOOD SUGAR DIAGNOSTIC STRIP TEST SCH ×3 (05:14→18:26)
[2022-02-11] MEDS: PANTOPRAZOLE SODIUM 40 MG/VIAL IV SCH ×2 (05:17→18:10)
[2022-02-11 06:09] LABS: BASOPHILS % 0.4 % (0.0-2.0); EOSINOPHILS % 1.7 % (0.0-5.0); HEMATOCRIT. 25.6 % (36.0-48.0); HEMOGLOBIN. 8.4 g/dL (12.0-16.0); LYMPHOCYTES % 15.3 % (20.0-50.0); MEAN CORPUSCULAR HEMOGLOBIN 33.5 pg (28.0-32.0); MEAN CORPUSCULAR VOLUME 102.7 fL (81.0-99.0); MEAN PLATELET VOLUME 8.4 fl (7.4-10.4); NEUTROPHILS % 76.6 % (40.0-76.0); PLATELET 288 x1000/uL (130-400)
[2022-02-11 06:17] LABS: CHLORIDE 104 mEq/L (98-107)
[2022-02-11] MEDS ORDERED: POTASSIUM CHLORIDE 20MEQ TABLET SR PO NR (08:15)
[2022-02-11] MEDS: MIDODRINE HCL 5MG TABLET PO SCH ×2 (08:29→18:10)
[2022-02-11] MEDS: SPIRONOLACTONE 25MG TABLET PO SCH (08:30)
[2022-02-11] MEDS: FUROSEMIDE 20MG TABLET PO SCH (08:30)
[2022-02-11] MEDS: BISACODYL 5MG TABLET PO SCH (09:00)
[2022-02-11] MEDS: ENOXAPARIN 100MG/ML SYR SUBCUT SCH (12:46)
[2022-02-11] MEDS: MEMANTINE HCL 10MG TABLET PO SCH (20:22)
[2022-02-11] MEDS: SODIUM HYPOCHLORITE 0.125% 473ML SOLUTION TOP SCH (22:51)
[2022-02-12] VITALS (8 sets, daily range): BP systolic 106–123; BP diastolic 46–80
[2022-02-12] MEDS: BLOOD SUGAR DIAGNOSTIC STRIP TEST SCH ×4 (00:21→18:00)
[2022-02-12] MEDS: ENOXAPARIN 100MG/ML SYR SUBCUT SCH ×2 (01:23→15:30)
[2022-02-12] MEDS: IPRATROPIUM/ALBUTEROL 0.5-3(2.5)MG/3ML NEB HHN SCH ×6 (01:24→20:11)
[2022-02-12] MEDS: ACETAMINOPHEN 325MG TABLET PO PRN ×2 (02:05→09:08)
[2022-02-12] MEDS: PANTOPRAZOLE SODIUM 40 MG/VIAL IV SCH ×2 (05:35→19:01)
[2022-02-12] MEDS: BISACODYL 5MG TABLET PO SCH (09:09)
[2022-02-12] MEDS: FUROSEMIDE 20MG TABLET PO SCH (09:09)
[2022-02-12] MEDS: MIDODRINE HCL 5MG TABLET PO SCH ×2 (09:09→16:25)
[2022-02-12] MEDS: MEMANTINE HCL 10MG TABLET PO SCH ×2 (09:09→21:12)
[2022-02-12] MEDS: SPIRONOLACTONE 25MG TABLET PO SCH (09:11)
[2022-02-12 11:47] LABS: BASOPHILS % 0.5 % (0.0-2.0); EOSINOPHILS % 0.9 % (0.0-5.0); HEMATOCRIT. 22.8 % (36.0-48.0); HEMOGLOBIN. 7.4 g/dL (12.0-16.0); LYMPHOCYTES % 20.1 % (20.0-50.0); MEAN CORPUSCULAR HEMOGLOBIN 34.1 pg (28.0-32.0); MEAN CORPUSCULAR VOLUME 104.9 fL (81.0-99.0); MEAN PLATELET VOLUME 8.5 fl (7.4-10.4); MONOCYTES % 6.6 % (2.0-8.0); NEUTROPHILS % 71.9 % (40.0-76.0); PLATELET 298 x1000/uL (130-400); RED BLOOD CELL COUNT 2.17 mill/uL (4.2-5.4); RED CELL DISTRIBUTION WIDTH 23.4 % (11.6-14.6)
[2022-02-12 11:55] LABS: CHLORIDE 106 mEq/L (98-107)
[2022-02-12] MEDS: MORPHINE SULFATE 2 MG/ML CPJ (NOT FOR IM USE) IV PRN ×2 (12:31→19:57)
[2022-02-12] MEDS ORDERED: ACETAMINOPHEN 325MG TABLET PO PRN (13:45)
[2022-02-12] MEDS: HYDROCODONE/ACETAMINOPHEN 5/325MG TABLET PO PRN (15:45)
[2022-02-12] MEDS: SODIUM HYPOCHLORITE 0.125% 473ML SOLUTION TOP SCH ×2 (19:10→19:16)
[2022-02-13] VITALS (7 sets, daily range): BP systolic 95–125; BP diastolic 43–79
[2022-02-13] MEDS: BLOOD SUGAR DIAGNOSTIC STRIP TEST SCH ×4 (00:39→18:00)
[2022-02-13] MEDS: ENOXAPARIN 100MG/ML SYR SUBCUT SCH ×2 (00:40→15:44)
[2022-02-13] MEDS: IPRATROPIUM/ALBUTEROL 0.5-3(2.5)MG/3ML NEB HHN SCH ×6 (01:12→20:44)
[2022-02-13] MEDS: MORPHINE SULFATE 2 MG/ML CPJ (NOT FOR IM USE) IV PRN ×4 (03:26→18:59)
[2022-02-13] MEDS: PANTOPRAZOLE SODIUM 40 MG/VIAL IV SCH ×2 (05:15→20:42)
[2022-02-13] MEDS: SPIRONOLACTONE 25MG TABLET PO SCH (09:00)
[2022-02-13] MEDS: FUROSEMIDE 20MG TABLET PO SCH (10:15)
[2022-02-13] MEDS: MEMANTINE HCL 10MG TABLET PO SCH ×2 (10:16→22:00)
[2022-02-13] MEDS: BISACODYL 5MG TABLET PO SCH (10:16)
[2022-02-13] MEDS: HYDROCODONE/ACETAMINOPHEN 5/325MG TABLET PO PRN ×2 (10:16→15:36)
[2022-02-13] MEDS: MIDODRINE HCL 5MG TABLET PO SCH ×2 (10:17→20:42)
[2022-02-13] MEDS: SODIUM HYPOCHLORITE 0.125% 473ML SOLUTION TOP SCH ×2 (10:18→17:00)
[2022-02-14] VITALS (8 sets, daily range): BP systolic 90–133; BP diastolic 45–83
[2022-02-14] MEDS: IPRATROPIUM/ALBUTEROL 0.5-3(2.5)MG/3ML NEB HHN SCH ×4 (00:39→11:49)
[2022-02-14] MEDS: ENOXAPARIN 100MG/ML SYR SUBCUT SCH (01:26)
[2022-02-14] MEDS: MORPHINE SULFATE 2 MG/ML CPJ (NOT FOR IM USE) IV PRN ×2 (03:21→12:26)
[2022-02-14] MEDS: PANTOPRAZOLE SODIUM 40 MG/VIAL IV SCH (06:01)
[2022-02-14] MEDS: BLOOD SUGAR DIAGNOSTIC STRIP TEST SCH ×2 (06:01)
[2022-02-14] MEDS: BISACODYL 5MG TABLET PO SCH (08:52)
[2022-02-14] MEDS: MIDODRINE HCL 5MG TABLET PO SCH (08:52)
[2022-02-14] MEDS: MEMANTINE HCL 10MG TABLET PO SCH (08:52)
[2022-02-14] MEDS: FUROSEMIDE 20MG TABLET PO SCH (08:52)
[2022-02-14] MEDS: SODIUM HYPOCHLORITE 0.125% 473ML SOLUTION TOP SCH (08:56)
[2022-02-14] MEDS: SPIRONOLACTONE 25MG TABLET PO SCH (08:56)
[2022-02-14] MEDS: HYDROCODONE/ACETAMINOPHEN 5/325MG TABLET PO PRN (09:11)
== END 2022-02-14 13:45 | DRG 710 ==
LOC: ER 10:36 → 5EST 15:05 → EDBEDREQ 15:10 → EDBEDREQTM 15:10 → ENRESERV 15:41 → CANRESERV 15:41 → ENRESERV 15:58 → 7WST 01-21 23:36 → MICUSO 01-25 11:30 → 5EST 01-31 17:00
PROVIDERS: ADMIT Internal Medicine; ATTEND Internal Medicine
PROC: 05H533Z Insertion of Infusion Device into Right Subclavian Vein, Percutaneous Approach (ICD-10-PCS; 2022-01-18)
PROC: B546ZZA Ultrasonography of Right Subclavian Vein, Guidance (ICD-10-PCS; 2022-01-18)
PROC: 30233N1 Transfusion of Nonautologous Red Blood Cells into Peripheral Vein, Percutaneous Approach (ICD-10-PCS; 2022-01-20)
PROC: 5A09357 Assistance with Respiratory Ventilation, Less than 24 Consecutive Hours, Continuous Positive Airway Pressure (ICD-10-PCS; 2022-01-25)
PROC: 0WB Anatomical Regions, General, Excision (ICD-10-PCS; principal; 2022-02-03)
PROC: 5A09357 Assistance with Respiratory Ventilation, Less than 24 Consecutive Hours, Continuous Positive Airway Pressure (ICD-10-PCS; 2022-02-05)
PROC: 0W9B3ZZ Drainage of Left Pleural Cavity, Percutaneous Approach (ICD-10-PCS; 2022-02-06)
DX: A41.9 Sepsis, unspecified organism (principal); J96.01 Acute respiratory failure with hypoxia; I26.99 Other pulmonary embolism without acute cor pulmonale; K63.1 Perforation of intestine (nontraumatic); G82.50 Quadriplegia, unspecified; K55.9 Vascular disorder of intestine, unspecified; E43 Unspecified severe protein-calorie malnutrition; I82.432 Acute embolism and thrombosis of left popliteal vein; I82.431 Acute embolism and thrombosis of right popliteal vein; I82.210 Acute embolism and thrombosis of superior vena cava; G93.41 Metabolic encephalopathy; I50.21 Acute systolic (congestive) heart failure; K56.609 Unspecified intestinal obstruction, unspecified as to partial versus complete obstruction; E87.20 Acidosis, unspecified; E87.1 Hypo-osmolality and hyponatremia; J91.8 Pleural effusion in other conditions classified elsewhere; L89.159 Pressure ulcer of sacral region, unspecified stage; I42.9 Cardiomyopathy, unspecified; G12.20 Motor neuron disease, unspecified; R17 Unspecified jaundice; E11.43 Type 2 diabetes mellitus with diabetic autonomic (poly)neuropathy; I11.0 Hypertensive heart disease with heart failure; G40.909 Epilepsy, unspecified, not intractable, without status epilepticus; M85.80 Other specified disorders of bone density and structure, unspecified site; K31.84 Gastroparesis; I48.91 Unspecified atrial fibrillation; E78.5 Hyperlipidemia, unspecified; D53.9 Nutritional anemia, unspecified; K59.00 Constipation, unspecified; R65.20 Severe sepsis without septic shock; R74.01 Elevation of levels of liver transaminase levels; F32.A Depression, unspecified; Z87.19 Personal history of other diseases of the digestive system; Z82.49 Family history of ischemic heart disease and other diseases of the circulatory system; Z85.43 Personal history of malignant neoplasm of ovary; Z90.710 Acquired absence of both cervix and uterus; Z88.8 Allergy status to other drugs, medicaments and biological substances; Z79.899 Other long term (current) drug therapy; Z68.32 Body mass index [BMI] 32.0-32.9, adult
CPT/HCPCS: 32555; 36415; 36573; 36600; 71045; 71275; 72141; 72148; 74018; 74021; 74174; 74176; 76604; 76700; 80048; 80053; 80076; 80305; 80320; 81003; 82040; 82248; 82270; 82375; 82607; 82728; 82746; 82805; 82962; 83036; 83540; 83550; 83605; 83615; 83735; 83880; 84145; 84484; 85014; 85018; 85025; 85044; 85379; 86705; 86709; 86803; 86850; 86900; 86920; 87340; 87426; 87804; 88108; 93005; 93308; 93970; 94640; 94660; 97110; 97162; 97163; 97166; 97530; 99291; A6261; C1725; C1893; C9113; J0360; J0690; J1100; J1170; J1644; J1650; J1940; J1956; J2250; J2270; J2310; J2405; J2543; J2704; J3370; J3430; J3480; J3490; J7030; J7040; J7060; L8514; P9016; Q9963; Q9967; A4315; G0480

== ENCOUNTER 2022-02-23 17:54 | Inpatient (IN) | payer MEDICARE, MEDICAID ==
[~2022-02-23] VITALS: Ht 167.6 cm; Wt 65.3 kg
[2022-02-23] MEDS ORDERED: SODIUM CHLORIDE 0.9% 1000ML BAG (SEPSIS BOLUS) IV ONE (18:30)
[2022-02-23] MEDS ORDERED: CEFTRIAXONE 1 G PREMIX 50 ML IV ONE (18:30)
[2022-02-23] MEDS ORDERED: AZITHROMYCIN 500MG/250ML 250 ML IV ONE (18:30)
[2022-02-23] MEDS ORDERED: NOREPINEPHRINE 8 MG in DEXTROSE 5% WATER 250 ML IV PRN (19:00)
[2022-02-23] MEDS ORDERED: NOREPINEPHRINE 8MG/250ML PMX 250 ML IV ONE (19:00)
[2022-02-23] MEDS ORDERED: PROPOFOL 10MG/ML 100ML 100 ML IV SCH (19:15)
[2022-02-23] MEDS ORDERED: FENTANYL 2500MCG/250ML PMX 250 ML IV ONE (19:15)
[2022-02-23 21:55] LABS: CLARITY URINE CLOUDY (CLEAR); COLOR URINE DARK YELLOW (YELLOW); KETONES URINE TRACE (NEGATIVE); LEUKOCYTE ESTERASE URINE 2+ (NEGATIVE); NITRITE URINE NEGATIVE (NEGATIVE); OCCULT BLOOD URINE TRACE (NEGATIVE); PH URINE 5.5 (4.5-8.0); PROTEIN URINE 1+ (NEGATIVE); SPECIFIC GRAVITY URINE 1.019 (1.005-1.030)
[2022-02-23] MEDS ORDERED: CEFTRIAXONE 1 G PREMIX 50 ML IV NR (22:00)
[2022-02-23 22:04] LABS: BASOPHILS % 0.1 % (0.0-2.0); EOSINOPHILS % 0.6 % (0.0-5.0); LYMPHOCYTES % 14.7 % (20.0-50.0); MEAN CORPUSCULAR HEMOGLOBIN 33.6 pg (28.0-32.0); MEAN PLATELET VOLUME 6.7 fl (7.4-10.4); MONOCYTES % 3.9 % (2.0-8.0); NEUTROPHILS % 80.7 % (40.0-76.0); PLATELET 556 x1000/uL (130-400); RED BLOOD CELL COUNT 1.68 mill/uL (4.2-5.4); RED CELL DISTRIBUTION WIDTH 21.4 % (11.6-14.6)
[2022-02-23 22:08] LABS: HEMATOCRIT. 17.8 % (36.0-48.0); HEMOGLOBIN. 5.6 g/dL (12.0-16.0)
[2022-02-23 22:12] LABS: CHLORIDE 110 mEq/L (98-107); INR 1.3; PROTHROMBIN TIME 13.7 sec (9.6-11.0)
[2022-02-24] VITALS (44 sets, daily range): BP systolic 106–159; BP diastolic 51–94
[2022-02-24] MEDS ORDERED: VANCOMYCIN 1G PREMIX 200 ML IV STA (00:51)
[2022-02-24] MEDS ORDERED: NOREPINEPHRINE 8MG/250ML PMX 250 ML IV ONE (02:00)
[2022-02-24] MEDS ORDERED: NOREPINEPHRINE 8 MG in DEXTROSE 5% WATER 250 ML IV PRN (02:15)
[2022-02-24] MEDS ORDERED: DIPHENHYDRAMINE 50MG/ML VIAL IV SCH (07:00)
[2022-02-24] MEDS ORDERED: ACETAMINOPHEN 325MG TABLET PO SCH (07:00)
[2022-02-24 10:32] LABS: BG BASE EXCESS 2.9 mmol/L (-2.0-2.0); BG CARBOXYHEMOGLOBIN 0.4 % (0.5-1.5); BG DEOXYHEMOGLOBIN 1.7 % (0.0-5.0); BG FRACTION INSPIRED OXYGEN 50; BG HCO3 ACT 26.7 mmol/L (22.0-26.0); BG METHEMOGLOBIN 0.5 % (0.0-1.5); BG OXYGEN SATURATION 98.3 % (92.0-98.5); BG OXYHEMOGLOBIN 97.4 % (94.0-97.0); BG PCO2 37.4 mmHg (35.0-45.0); BG PH 7.472 (7.350-7.450); BG PO2 113.1 mmHg (75.0-100.0); BG SAMPLE SITE LEFT RADIAL; BG TOTAL HEMOGLOBIN 7.8 g/dL (12.0-18.0); BG VENT MODE VENT - AC
[2022-02-24] MEDS ORDERED: METRONIDAZOLE 500 MG PREMIX 100 ML IV SCH (12:00)
[2022-02-24] MEDS ORDERED: IPRATROPIUM/ALBUTEROL 0.5-3(2.5)MG/3ML NEB HHN PRN (12:15)
[2022-02-24] MEDS ORDERED: FENTANYL CITRATE/PF 2,500 MCG in SODIUM CHLORIDE 0.9% 200 ML IV PRN ×2 (12:15→15:15)
[2022-02-24] MEDS ORDERED: PROPOFOL 10MG/ML 100ML 100 ML IV PRN (13:00)
[2022-02-24] MEDS ORDERED: IOHEXOL-350 100 ML BOTTLE ONE ×2 (13:49→13:50)
[2022-02-24] MEDS: PANTOPRAZOLE SODIUM 40 MG/VIAL IV SCH (15:31)
[2022-02-24] MEDS: SODIUM CHLORIDE 0.9% 1,000 ML IV SCH (15:32)
[2022-02-24] MEDS: PROPOFOL 10MG/ML 100ML 100 ML IV PRN (15:33)
[2022-02-24] MEDS ORDERED: NOREPINEPHRINE 32 MG in DEXT 5% WATER 218 ML IV PRN (18:00)
[2022-02-24] MEDS: AZITHROMYCIN 250 MG in DEXT 5% WATER 250 ML IV SCH (19:10)
[2022-02-24] MEDS: CEFTRIAXONE 1,000 MG in DEXTROSE 5% WATER 50 ML IV SCH (19:10)
[2022-02-24 19:52] LABS: HEMATOCRIT 18.6 % (36.0-48.0); HEMOGLOBIN 5.9 g/dL (12.0-16.0)
[2022-02-24 20:00] LABS: TOTAL IRON BINDING CAPACITY 67 ug/dL (250-450)
[2022-02-24 20:17] LABS: FERRITIN 423 ng/mL (10-291)
[2022-02-24 20:26] LABS: VITAMIN B12 SERUM 1656 pg/mL (211-911)
[2022-02-24] MEDS: IPRATROPIUM/ALBUTEROL 0.5-3(2.5)MG/3ML NEB HHN SCH (20:34)
[2022-02-24] MEDS: ACETAMINOPHEN 650MG/20.3ML UDC PO PRN (20:38)
[2022-02-24] MEDS ORDERED: AZITHROMYCIN 250 MG in DEXT 5% WATER 250 ML IV SCH (21:00)
[2022-02-24] MEDS: METRONIDAZOLE 500 MG PREMIX 100 ML IV SCH (21:10)
[2022-02-24] MEDS ORDERED: CEFTRIAXONE 1,000 MG in DEXTROSE 5% WATER 50 ML IV SCH (22:00)
[2022-02-24] MEDS ORDERED: CEFTRIAXONE 1 G PREMIX 50 ML IV SCH (22:00)
[2022-02-24] MEDS ORDERED: FUROSEMIDE 40MG/4ML VIAL IVP NR (23:45)
[2022-02-25] VITALS (92 sets, daily range): BP systolic 78–149; BP diastolic 31–95
[2022-02-25] MEDS: IPRATROPIUM/ALBUTEROL 0.5-3(2.5)MG/3ML NEB HHN SCH ×4 (01:31→20:25)
[2022-02-25] MEDS: PROPOFOL 10MG/ML 100ML 100 ML IV PRN ×3 (02:18→22:32)
[2022-02-25 02:32] LABS: HEMATOCRIT 21.9 % (36.0-48.0); HEMOGLOBIN 7.1 g/dL (12.0-16.0)
[2022-02-25] MEDS: FENTANYL 2500MCG/250ML PMX 250 ML IV PRN (03:12)
[2022-02-25] MEDS: METRONIDAZOLE 500 MG PREMIX 100 ML IV SCH ×3 (03:12→20:09)
[2022-02-25] MEDS: PANTOPRAZOLE SODIUM 40 MG/VIAL IV SCH ×2 (03:13→15:08)
[2022-02-25] MEDS: SODIUM CHLORIDE 0.9% 1,000 ML IV SCH (04:07)
[2022-02-25 05:18] LABS: BASOPHILS % 0.3 % (0.0-2.0); EOSINOPHILS % 1.7 % (0.0-5.0); HEMATOCRIT. 22.6 % (36.0-48.0); HEMOGLOBIN. 7.5 g/dL (12.0-16.0); MEAN CORPUSCULAR HEMOGLOBIN 33.4 pg (28.0-32.0); MEAN CORPUSCULAR VOLUME 99.9 fL (81.0-99.0); MEAN PLATELET VOLUME 6.8 fl (7.4-10.4); MONOCYTES % 2.7 % (2.0-8.0); NEUTROPHILS % 79.3 % (40.0-76.0); PLATELET 404 x1000/uL (130-400); RED BLOOD CELL COUNT 2.26 mill/uL (4.2-5.4); RED CELL DISTRIBUTION WIDTH 20.6 % (11.6-14.6)
[2022-02-25 05:25] LABS: CHLORIDE 112 mEq/L (98-107)
[2022-02-25] MEDS ORDERED: DEXTROSE 50% WATER 50ML SYRINGE IV NR ×2 (06:30→06:45)
[2022-02-25] MEDS: DEXT 5%/0.45% NACL 1000ML 1,000 ML IV SCH (08:28)
[2022-02-25 08:40] LABS: BG BASE EXCESS 2.9 mmol/L (-2.0-2.0); BG CARBOXYHEMOGLOBIN 0.1 % (0.5-1.5); BG DEOXYHEMOGLOBIN 3.7 % (0.0-5.0); BG HCO3 ACT 25.2 mmol/L (22.0-26.0); BG METHEMOGLOBIN 0.2 % (0.0-1.5); BG OXYGEN SATURATION 96.3 % (92.0-98.5); BG PCO2 29.9 mmHg (35.0-45.0); BG PH 7.543 (7.350-7.450); BG PO2 81.2 mmHg (75.0-100.0); BG SAMPLE SITE RIGHT RADIAL; BG TOTAL HEMOGLOBIN 8.7 g/dL (12.0-18.0); BG VENT MODE VENT - AC
[2022-02-25] MEDS ORDERED: DEXTROSE 50% WATER 50ML SYRINGE IV PRN (08:45)
[2022-02-25] MEDS ORDERED: PROPOFOL 10MG/ML 100ML 100 ML IV PRN (10:45)
[2022-02-25] MEDS ORDERED: ALBUMIN HUMAN 25GM/100ML (25%) IV NR (10:45)
[2022-02-25] MEDS: BLOOD SUGAR DIAGNOSTIC STRIP TEST SCH ×3 (12:00→20:31)
[2022-02-25] MEDS: CEFTRIAXONE 1,000 MG in DEXTROSE 5% WATER 50 ML IV SCH (12:35)
[2022-02-25] MEDS: ACETAMINOPHEN 650MG/20.3ML UDC PO PRN (12:35)
[2022-02-25] MEDS ORDERED: PHENYLEPHRINE 100 MG in DEXT 5% WATER 240 ML IV PRN (14:30)
[2022-02-25] MEDS: PHENYLEPHRINE 100 MG in DEXT 5% WATER 240 ML IV PRN (14:32)
[2022-02-25] MEDS: AZITHROMYCIN 250 MG in DEXT 5% WATER 250 ML IV SCH (17:22)
[2022-02-26] VITALS (99 sets, daily range): BP systolic 93–143; BP diastolic 33–81
[2022-02-26] MEDS: DEXT 5%/0.45% NACL 1000ML 1,000 ML IV SCH ×2 (01:08→16:06)
[2022-02-26 01:22] LABS: HEMATOCRIT 25.8 % (36.0-48.0); HEMOGLOBIN 8.6 g/dL (12.0-16.0)
[2022-02-26] MEDS: IPRATROPIUM/ALBUTEROL 0.5-3(2.5)MG/3ML NEB HHN SCH ×4 (01:37→20:00)
[2022-02-26] MEDS: ACETAMINOPHEN 650MG/20.3ML UDC PO PRN ×3 (03:37→17:19)
[2022-02-26] MEDS: PANTOPRAZOLE SODIUM 40 MG/VIAL IV SCH ×2 (03:38→15:22)
[2022-02-26] MEDS: BLOOD SUGAR DIAGNOSTIC STRIP TEST SCH ×6 (03:39→19:25)
[2022-02-26 04:07] LABS: CHLORIDE 112 mEq/L (98-107)
[2022-02-26 04:22] LABS: BASOPHILS % 0.2 % (0.0-2.0); EOSINOPHILS % 1.1 % (0.0-5.0); HEMATOCRIT. 28.4 % (36.0-48.0); HEMOGLOBIN. 9.3 g/dL (12.0-16.0); LYMPHOCYTES % 17.4 % (20.0-50.0); MEAN CORPUSCULAR VOLUME 94.4 fL (81.0-99.0); MEAN PLATELET VOLUME 7.8 fl (7.4-10.4); MONOCYTES % 2.5 % (2.0-8.0); NEUTROPHILS % 78.8 % (40.0-76.0); PLATELET 67 x1000/uL (130-400); RED BLOOD CELL COUNT 3.01 mill/uL (4.2-5.4); RED CELL DISTRIBUTION WIDTH 24.9 % (11.6-14.6)
[2022-02-26] MEDS: METRONIDAZOLE 500 MG PREMIX 100 ML IV SCH ×3 (04:24→19:25)
[2022-02-26] MEDS: PROPOFOL 10MG/ML 100ML 100 ML IV PRN ×4 (04:31→23:01)
[2022-02-26 09:25] LABS: BG BASE EXCESS -1.2 mmol/L (-2.0-2.0); BG CARBOXYHEMOGLOBIN 0.1 % (0.5-1.5); BG DEOXYHEMOGLOBIN 2.3 % (0.0-5.0); BG FRACTION INSPIRED OXYGEN 35; BG HCO3 ACT 21.1 mmol/L (22.0-26.0); BG METHEMOGLOBIN 0.3 % (0.0-1.5); BG OXYGEN SATURATION 97.7 % (92.0-98.5); BG OXYHEMOGLOBIN 97.3 % (94.0-97.0); BG PCO2 27.1 mmHg (35.0-45.0); BG PO2 93.3 mmHg (75.0-100.0); BG SAMPLE SITE RIGHT BRACHIAL; BG TOTAL HEMOGLOBIN 9.3 g/dL (12.0-18.0); BG VENT MODE VENT - AC
[2022-02-26] MEDS ORDERED: FUROSEMIDE 40MG/4ML VIAL IVP NR (10:45)
[2022-02-26] MEDS: FENTANYL 2500MCG/250ML PMX 250 ML IV PRN (11:27)
[2022-02-26] MEDS: CEFTRIAXONE 1,000 MG in DEXTROSE 5% WATER 50 ML IV SCH (13:44)
[2022-02-26 16:10] LABS: BASOPHILS % 0.3 % (0.0-2.0); EOSINOPHILS % 1.1 % (0.0-5.0); HEMATOCRIT. 27.2 % (36.0-48.0); HEMOGLOBIN. 8.8 g/dL (12.0-16.0); LYMPHOCYTES % 12.6 % (20.0-50.0); MEAN CORPUSCULAR HEMOGLOBIN 30.8 pg (28.0-32.0); MEAN CORPUSCULAR VOLUME 95.7 fL (81.0-99.0); MONOCYTES % 2.7 % (2.0-8.0); NEUTROPHILS % 83.3 % (40.0-76.0); PLATELET 315 x1000/uL (130-400); RED BLOOD CELL COUNT 2.84 mill/uL (4.2-5.4); RED CELL DISTRIBUTION WIDTH 24.8 % (11.6-14.6)
[2022-02-26] MEDS: AZITHROMYCIN 250 MG in DEXT 5% WATER 250 ML IV SCH (19:24)
[2022-02-26] MEDS: CEFEPIME 2,000 MG in DEXT 5% WATER 100 ML IV SCH (23:00)
[2022-02-27] VITALS (93 sets, daily range): BP systolic 88–166; BP diastolic 50–149
[2022-02-27] MEDS: IPRATROPIUM/ALBUTEROL 0.5-3(2.5)MG/3ML NEB HHN SCH ×4 (02:50→20:11)
[2022-02-27] MEDS: PANTOPRAZOLE SODIUM 40 MG/VIAL IV SCH ×2 (03:15→14:57)
[2022-02-27] MEDS: METRONIDAZOLE 500 MG PREMIX 100 ML IV SCH ×3 (03:20→21:10)
[2022-02-27] MEDS: BLOOD SUGAR DIAGNOSTIC STRIP TEST SCH ×6 (04:00→20:00)
[2022-02-27 05:01] LABS: HEMATOCRIT. 27.5 % (36.0-48.0); HEMOGLOBIN. 9.1 g/dL (12.0-16.0); MEAN CORPUSCULAR HEMOGLOBIN 31.2 pg (28.0-32.0); MEAN CORPUSCULAR VOLUME 94.1 fL (81.0-99.0); PLATELET 316 x1000/uL (130-400); RED BLOOD CELL COUNT 2.92 mill/uL (4.2-5.4); RED CELL DISTRIBUTION WIDTH 24.9 % (11.6-14.6)
[2022-02-27 05:12] LABS: CHLORIDE 107 mEq/L (98-107)
[2022-02-27] MEDS: PROPOFOL 10MG/ML 100ML 100 ML IV PRN ×4 (06:46→23:55)
[2022-02-27 07:19] LABS: NUCLEATED RED BLOOD CELLS 1 /100 WBC; PLATELET ESTIMATE NORMAL
[2022-02-27] MEDS ORDERED: POTASSIUM CHLORIDE 20MEQ/PACKET PO SCH (08:00)
[2022-02-27] MEDS ORDERED: FUROSEMIDE 40MG/4ML VIAL IVP SCH (08:00)
[2022-02-27] MEDS ORDERED: POTASSIUM CHLORIDE INJ 40 MEQ in DEXT 5% WATER 250 ML IV ONE (08:00)
[2022-02-27] MEDS: CEFEPIME 2,000 MG in DEXT 5% WATER 100 ML IV SCH ×2 (08:07→21:11)
[2022-02-27] MEDS ORDERED: MORPHINE SULFATE 2 MG/ML CPJ (NOT FOR IM USE) IV NR (08:45)
[2022-02-27] MEDS: ACETAMINOPHEN 650MG/20.3ML UDC PO PRN (09:50)
[2022-02-27] MEDS: KCL 20MEQ/100ML X 2 FOR TOTAL KCL 40MEQ/200ML IV SCH ×2 (09:50→12:48)
[2022-02-27] MEDS: DEXT 5%/0.45% NACL 1000ML 1,000 ML IV SCH ×2 (09:51→23:29)
[2022-02-27 09:54] LABS: BG BASE EXCESS -3.5 mmol/L (-2.0-2.0); BG CARBOXYHEMOGLOBIN 0.3 % (0.5-1.5); BG DEOXYHEMOGLOBIN 3.1 % (0.0-5.0); BG FRACTION INSPIRED OXYGEN 35; BG HCO3 ACT 19.4 mmol/L (22.0-26.0); BG METHEMOGLOBIN 0.3 % (0.0-1.5); BG OXYGEN SATURATION 96.9 % (92.0-98.5); BG OXYHEMOGLOBIN 96.3 % (94.0-97.0); BG PH 7.459 (7.350-7.450); BG SAMPLE SITE RIGHT RADIAL; BG TOTAL HEMOGLOBIN 10.4 g/dL (12.0-18.0); BG TOTAL RESPIRATORY RATE 44 b/min; BG VENT MODE VENT - CPAP
[2022-02-27] MEDS: METOCLOPRAMIDE HCL 10MG/2ML VIAL IV SCH ×2 (12:48→17:10)
[2022-02-27] MEDS: PHENYLEPHRINE 100 MG in DEXT 5% WATER 240 ML IV PRN (13:09)
[2022-02-27] MEDS: CEFTRIAXONE 1,000 MG in DEXTROSE 5% WATER 50 ML IV SCH (13:59)
[2022-02-27] MEDS: DAPTOMYCIN 500 MG in SODIUM CHLORIDE 0.9% 50 ML IV SCH (16:11)
[2022-02-27] MEDS: AZITHROMYCIN 250 MG in DEXT 5% WATER 250 ML IV SCH (17:10)
[2022-02-27] MEDS: FENTANYL 2500MCG/250ML PMX 250 ML IV PRN (21:03)
[2022-02-28] VITALS (89 sets, daily range): BP systolic 69–139; BP diastolic 35–77
[2022-02-28] MEDS: METOCLOPRAMIDE HCL 10MG/2ML VIAL IV SCH ×5 (00:13→23:43)
[2022-02-28] MEDS: IPRATROPIUM/ALBUTEROL 0.5-3(2.5)MG/3ML NEB HHN SCH ×4 (02:08→20:23)
[2022-02-28] MEDS: PANTOPRAZOLE SODIUM 40 MG/VIAL IV SCH ×2 (03:15→15:33)
[2022-02-28] MEDS: BLOOD SUGAR DIAGNOSTIC STRIP TEST SCH ×7 (04:00→23:44)
[2022-02-28] MEDS: METRONIDAZOLE 500 MG PREMIX 100 ML IV SCH ×3 (04:13→20:23)
[2022-02-28] MEDS: PROPOFOL 10MG/ML 100ML 100 ML IV PRN ×5 (04:51→18:26)
[2022-02-28 04:57] LABS: BASOPHILS % 0.1 % (0.0-2.0); EOSINOPHILS % 0.7 % (0.0-5.0); HEMATOCRIT. 26.6 % (36.0-48.0); HEMOGLOBIN. 8.6 g/dL (12.0-16.0); LYMPHOCYTES % 16.4 % (20.0-50.0); MEAN CORPUSCULAR HEMOGLOBIN 31.1 pg (28.0-32.0); MONOCYTES % 3.7 % (2.0-8.0); NEUTROPHILS % 79.1 % (40.0-76.0); PLATELET 256 x1000/uL (130-400); RED BLOOD CELL COUNT 2.77 mill/uL (4.2-5.4); RED CELL DISTRIBUTION WIDTH 26.1 % (11.6-14.6)
[2022-02-28 05:07] LABS: CHLORIDE 110 mEq/L (98-107)
[2022-02-28 05:19] LABS: CREATINE KINASE 47 IU/L (26-192)
[2022-02-28] MEDS ORDERED: FUROSEMIDE 40MG/4ML VIAL IVP SCH (09:00)
[2022-02-28] MEDS: CEFEPIME 2,000 MG in DEXT 5% WATER 100 ML IV SCH ×2 (09:09→20:22)
[2022-02-28] MEDS ORDERED: PROPOFOL 10MG/ML 100ML 100 ML IV PRN (10:45)
[2022-02-28] MEDS: ACETAMINOPHEN 650MG/20.3ML UDC PO PRN (12:16)
[2022-02-28 13:32] LABS: HEMATOCRIT 26.3 % (36.0-48.0); HEMOGLOBIN 8.6 g/dL (12.0-16.0)
[2022-02-28] MEDS ORDERED: IOHEXOL-350 100 ML BOTTLE ONE (14:46)
[2022-02-28] MEDS: DAPTOMYCIN 500 MG in SODIUM CHLORIDE 0.9% 50 ML IV SCH (15:34)
[2022-02-28] MEDS: MICAFUNGIN 100 MG in SODIUM CHLORIDE 0.9% 100 ML IV SCH (16:10)
[2022-02-28] MEDS: DEXT 5%/0.45% NACL 1000ML 1,000 ML IV SCH (17:24)
[2022-02-28 18:24] LABS: HEMATOCRIT 26.9 % (36.0-48.0); HEMOGLOBIN 8.7 g/dL (12.0-16.0)
[2022-02-28] MEDS: FENTANYL 2500MCG/250ML PMX 250 ML IV PRN (18:27)
[2022-02-28] MEDS: PHENYLEPHRINE 100 MG in DEXT 5% WATER 240 ML IV PRN (21:02)
[2022-03-01] VITALS (95 sets, daily range): BP systolic 80–142; BP diastolic 36–75
[2022-03-01 01:30] LABS: HEMATOCRIT 26.8 % (36.0-48.0); HEMOGLOBIN 8.6 g/dL (12.0-16.0)
[2022-03-01] MEDS: IPRATROPIUM/ALBUTEROL 0.5-3(2.5)MG/3ML NEB HHN SCH ×4 (02:04→20:33)
[2022-03-01] MEDS: PANTOPRAZOLE SODIUM 40 MG/VIAL IV SCH ×2 (03:11→14:03)
[2022-03-01] MEDS: METRONIDAZOLE 500 MG PREMIX 100 ML IV SCH ×3 (03:12→20:02)
[2022-03-01] MEDS: METOCLOPRAMIDE HCL 10MG/2ML VIAL IV SCH ×3 (03:12→17:29)
[2022-03-01] MEDS: BLOOD SUGAR DIAGNOSTIC STRIP TEST SCH ×5 (03:13→19:49)
[2022-03-01 05:53] LABS: BASOPHILS % 0.1 % (0.0-2.0); EOSINOPHILS % 0.7 % (0.0-5.0); HEMATOCRIT. 25.7 % (36.0-48.0); HEMOGLOBIN. 8.3 g/dL (12.0-16.0); LYMPHOCYTES % 17.2 % (20.0-50.0); MEAN CORPUSCULAR HEMOGLOBIN 31.3 pg (28.0-32.0); MEAN CORPUSCULAR VOLUME 96.6 fL (81.0-99.0); MEAN PLATELET VOLUME 7.4 fl (7.4-10.4); MONOCYTES % 3.3 % (2.0-8.0); NEUTROPHILS % 78.7 % (40.0-76.0); PLATELET 201 x1000/uL (130-400); RED BLOOD CELL COUNT 2.66 mill/uL (4.2-5.4); RED CELL DISTRIBUTION WIDTH 24.7 % (11.6-14.6)
[2022-03-01 06:46] LABS: CHLORIDE 115 mEq/L (98-107)
[2022-03-01] MEDS: FUROSEMIDE 40MG/4ML VIAL IVP SCH (08:10)
[2022-03-01] MEDS: CEFEPIME 2,000 MG in DEXT 5% WATER 100 ML IV SCH ×2 (08:11→22:17)
[2022-03-01 08:15] LABS: BG BASE EXCESS -3.2 mmol/L (-2.0-2.0); BG CARBOXYHEMOGLOBIN 0.3 % (0.5-1.5); BG DEOXYHEMOGLOBIN 2.2 % (0.0-5.0); BG HCO3 ACT 21.1 mmol/L (22.0-26.0); BG METHEMOGLOBIN 0.1 % (0.0-1.5); BG OXYGEN SATURATION 97.8 % (92.0-98.5); BG OXYHEMOGLOBIN 97.4 % (94.0-97.0); BG PCO2 35.4 mmHg (35.0-45.0); BG PH 7.394 (7.350-7.450); BG PO2 104.7 mmHg (75.0-100.0); BG SAMPLE SITE RIGHT RADIAL; BG TOTAL HEMOGLOBIN 10.5 g/dL (12.0-18.0); BG VENT MODE VENT - SIMV
[2022-03-01] MEDS: DEXT 5%/0.45% NACL 1000ML 1,000 ML IV SCH (11:17)
[2022-03-01] MEDS ORDERED: KCL 20MEQ/100ML PREMIX 100 ML IV NR (12:00)
[2022-03-01] MEDS: ACETAMINOPHEN 650MG/20.3ML UDC PO PRN (12:26)
[2022-03-01 13:04] LABS: HEMOGLOBIN 8.6 g/dL (12.0-16.0)
[2022-03-01] MEDS: QUETIAPINE FUMARATE 25MG TABLET PO SCH (14:03)
[2022-03-01] MEDS: DAPTOMYCIN 500 MG in SODIUM CHLORIDE 0.9% 50 ML IV SCH (17:29)
[2022-03-01] MEDS: PHENYLEPHRINE 100 MG in DEXT 5% WATER 240 ML IV PRN (17:41)
[2022-03-01] MEDS: PROPOFOL 10MG/ML 100ML 100 ML IV PRN (17:42)
[2022-03-01] MEDS ORDERED: FENTANYL CITRATE 2,500 MCG in SODIUM CHLORIDE 0.9% 200 ML IV PRN (17:45)
[2022-03-01] MEDS: MICAFUNGIN 100 MG in SODIUM CHLORIDE 0.9% 100 ML IV SCH (18:13)
[2022-03-02] VITALS (91 sets, daily range): BP systolic 81–156; BP diastolic 45–119
[2022-03-02] MEDS: METOCLOPRAMIDE HCL 10MG/2ML VIAL IV SCH ×5 (00:20→23:28)
[2022-03-02] MEDS: BLOOD SUGAR DIAGNOSTIC STRIP TEST SCH ×7 (00:20→23:16)
[2022-03-02] MEDS: IPRATROPIUM/ALBUTEROL 0.5-3(2.5)MG/3ML NEB HHN SCH ×4 (01:51→21:01)
[2022-03-02] MEDS: DEXT 5%/0.45% NACL 1000ML 1,000 ML IV SCH (02:53)
[2022-03-02] MEDS: PANTOPRAZOLE SODIUM 40 MG/VIAL IV SCH ×2 (02:53→15:25)
[2022-03-02] MEDS: METRONIDAZOLE 500 MG PREMIX 100 ML IV SCH ×3 (03:53→20:21)
[2022-03-02] MEDS: PHENYLEPHRINE 100 MG in DEXT 5% WATER 240 ML IV PRN (04:03)
[2022-03-02] MEDS: PROPOFOL 10MG/ML 100ML 100 ML IV PRN (05:18)
[2022-03-02 05:40] LABS: BASOPHILS % 0.5 % (0.0-2.0); EOSINOPHILS % 3.3 % (0.0-5.0); HEMATOCRIT. 27.9 % (36.0-48.0); LYMPHOCYTES % 30.5 % (20.0-50.0); MEAN CORPUSCULAR VOLUME 96.5 fL (81.0-99.0); MEAN PLATELET VOLUME 7.8 fl (7.4-10.4); MONOCYTES % 3.4 % (2.0-8.0); NEUTROPHILS % 62.3 % (40.0-76.0); PLATELET 234 x1000/uL (130-400); RED BLOOD CELL COUNT 2.89 mill/uL (4.2-5.4); RED CELL DISTRIBUTION WIDTH 25.2 % (11.6-14.6)
[2022-03-02 05:59] LABS: CHLORIDE 112 mEq/L (98-107)
[2022-03-02] MEDS: CEFEPIME 2,000 MG in DEXT 5% WATER 100 ML IV SCH ×2 (09:04→20:34)
[2022-03-02] MEDS: QUETIAPINE FUMARATE 25MG TABLET PO SCH (09:04)
[2022-03-02] MEDS: FUROSEMIDE 40MG/4ML VIAL IVP SCH (09:04)
[2022-03-02 10:31] LABS: BG BASE EXCESS -1.6 mmol/L (-2.0-2.0); BG CARBOXYHEMOGLOBIN 0.5 % (0.5-1.5); BG DEOXYHEMOGLOBIN 2.7 % (0.0-5.0); BG FRACTION INSPIRED OXYGEN 30; BG HCO3 ACT 23.1 mmol/L (22.0-26.0); BG METHEMOGLOBIN 0.3 % (0.0-1.5); BG OXYGEN SATURATION 97.3 % (92.0-98.5); BG OXYHEMOGLOBIN 96.5 % (94.0-97.0); BG PCO2 38.9 mmHg (35.0-45.0); BG PH 7.391 (7.350-7.450); BG PO2 95.8 mmHg (75.0-100.0); BG SAMPLE SITE LEFT RADIAL; BG TOTAL HEMOGLOBIN 10.5 g/dL (12.0-18.0); BG VENT MODE VENT - SIMV
[2022-03-02 11:18] LABS: BG BASE EXCESS -0.8 mmol/L (-2.0-2.0); BG DEOXYHEMOGLOBIN 2.6 % (0.0-5.0); BG FRACTION INSPIRED OXYGEN 30; BG HCO3 ACT 22.8 mmol/L (22.0-26.0); BG METHEMOGLOBIN 0.3 % (0.0-1.5); BG OXYGEN SATURATION 97.4 % (92.0-98.5); BG OXYHEMOGLOBIN 97.1 % (94.0-97.0); BG PCO2 33.5 mmHg (35.0-45.0); BG PO2 90.2 mmHg (75.0-100.0); BG SAMPLE SITE RIGHT RADIAL; BG TOTAL HEMOGLOBIN 9.8 g/dL (12.0-18.0); BG VENT MODE VENT - CPAP
[2022-03-02] MEDS ORDERED: POTASSIUM CHLORIDE 20MEQ TABLET SR PO NR (15:15)
[2022-03-02] MEDS ORDERED: NALOXONE HCL 0.4MG/ML VIAL IV PRN (15:15)
[2022-03-02] MEDS: HYDROCODONE/ACETAMINOPHEN 5/325MG TABLET PO PRN (15:17)
[2022-03-02] MEDS: DAPTOMYCIN 500 MG in SODIUM CHLORIDE 0.9% 50 ML IV SCH (17:01)
[2022-03-02] MEDS: MICAFUNGIN 100 MG in SODIUM CHLORIDE 0.9% 100 ML IV SCH (17:11)
[2022-03-03] VITALS (91 sets, daily range): BP systolic 93–162; BP diastolic 49–143
[2022-03-03] MEDS: IPRATROPIUM/ALBUTEROL 0.5-3(2.5)MG/3ML NEB HHN SCH ×4 (00:21→21:02)
[2022-03-03] MEDS: DEXT 5%/0.45% NACL 1000ML 1,000 ML IV SCH ×2 (04:37→15:34)
[2022-03-03] MEDS: PANTOPRAZOLE SODIUM 40 MG/VIAL IV SCH ×2 (04:37→15:43)
[2022-03-03] MEDS: METRONIDAZOLE 500 MG PREMIX 100 ML IV SCH ×2 (04:39→11:47)
[2022-03-03] MEDS: BLOOD SUGAR DIAGNOSTIC STRIP TEST SCH ×6 (04:39→23:48)
[2022-03-03 05:35] LABS: BASOPHILS % 0.5 % (0.0-2.0); EOSINOPHILS % 2.6 % (0.0-5.0); HEMATOCRIT. 26.7 % (36.0-48.0); HEMOGLOBIN. 8.8 g/dL (12.0-16.0); LYMPHOCYTES % 27.5 % (20.0-50.0); MEAN CORPUSCULAR HEMOGLOBIN 31.5 pg (28.0-32.0); MEAN CORPUSCULAR VOLUME 95.8 fL (81.0-99.0); MEAN PLATELET VOLUME 7.9 fl (7.4-10.4); MONOCYTES % 4.8 % (2.0-8.0); NEUTROPHILS % 64.6 % (40.0-76.0); PLATELET 226 x1000/uL (130-400); RED BLOOD CELL COUNT 2.79 mill/uL (4.2-5.4); RED CELL DISTRIBUTION WIDTH 25.6 % (11.6-14.6)
[2022-03-03 05:58] LABS: CHLORIDE 111 mEq/L (98-107)
[2022-03-03] MEDS: METOCLOPRAMIDE HCL 10MG/2ML VIAL IV SCH ×4 (06:18→23:48)
[2022-03-03] MEDS: CEFEPIME 2,000 MG in DEXT 5% WATER 100 ML IV SCH ×2 (09:28→21:06)
[2022-03-03] MEDS: FUROSEMIDE 40MG/4ML VIAL IVP SCH (09:29)
[2022-03-03] MEDS: QUETIAPINE FUMARATE 25MG TABLET PO SCH (09:29)
[2022-03-03] MEDS: HYDROCODONE/ACETAMINOPHEN 5/325MG TABLET PO PRN ×3 (09:31→21:04)
[2022-03-03] MEDS: GUAIFENESIN 200MG/10ML SUGAR FREE UDC PO SCH ×3 (11:47→22:05)
[2022-03-03 13:11] LABS: OVA & PARASITE EXAM Final report (.)
[2022-03-03] MEDS ORDERED: POTASSIUM CHLORIDE 20MEQ/PACKET PO NR (15:00)
[2022-03-03] MEDS: DAPTOMYCIN 500 MG in SODIUM CHLORIDE 0.9% 50 ML IV SCH (15:35)
[2022-03-03] MEDS: MICAFUNGIN 100 MG in SODIUM CHLORIDE 0.9% 100 ML IV SCH (15:44)
[2022-03-03] MEDS: METRONIDAZOLE 500MG TABLET PO SCH ×2 (18:29→22:05)
[2022-03-04] VITALS (85 sets, daily range): BP systolic 99–167; BP diastolic 21–96
[2022-03-04] MEDS: ACETYLCYSTEINE 100MG/ML 10% VIAL 4ML INH SCH ×3 (00:38→09:40)
[2022-03-04] MEDS: IPRATROPIUM/ALBUTEROL 0.5-3(2.5)MG/3ML NEB HHN SCH ×4 (00:38→22:31)
[2022-03-04] MEDS: BLOOD SUGAR DIAGNOSTIC STRIP TEST SCH ×5 (04:03→20:42)
[2022-03-04] MEDS: PANTOPRAZOLE SODIUM 40 MG/VIAL IV SCH ×2 (04:03→15:54)
[2022-03-04] MEDS: GUAIFENESIN 200MG/10ML SUGAR FREE UDC PO SCH ×4 (04:04→22:30)
[2022-03-04] MEDS: METRONIDAZOLE 500MG TABLET PO SCH ×3 (05:08→22:00)
[2022-03-04] MEDS: METOCLOPRAMIDE HCL 10MG/2ML VIAL IV SCH ×4 (05:08→23:32)
[2022-03-04 05:51] LABS: CHLORIDE 111 mEq/L (98-107)
[2022-03-04 05:58] LABS: BASOPHILS % 0.4 % (0.0-2.0); EOSINOPHILS % 2.1 % (0.0-5.0); HEMATOCRIT. 25.5 % (36.0-48.0); HEMOGLOBIN. 8.2 g/dL (12.0-16.0); LYMPHOCYTES % 21.2 % (20.0-50.0); MEAN CORPUSCULAR HEMOGLOBIN 31.1 pg (28.0-32.0); MEAN CORPUSCULAR VOLUME 96.6 fL (81.0-99.0); MONOCYTES % 4.2 % (2.0-8.0); NEUTROPHILS % 72.1 % (40.0-76.0); PLATELET 218 x1000/uL (130-400); RED BLOOD CELL COUNT 2.64 mill/uL (4.2-5.4); RED CELL DISTRIBUTION WIDTH 25.6 % (11.6-14.6)
[2022-03-04] MEDS: DEXT 5%/0.45% NACL 1000ML 1,000 ML IV SCH ×2 (07:10→22:07)
[2022-03-04] MEDS: FUROSEMIDE 40MG/4ML VIAL IVP SCH (08:40)
[2022-03-04] MEDS: CEFEPIME 2,000 MG in DEXT 5% WATER 100 ML IV SCH ×2 (08:40→22:07)
[2022-03-04] MEDS ORDERED: MORPHINE SULFATE 2 MG/ML CPJ (NOT FOR IM USE) IV PRN (09:00)
[2022-03-04] MEDS ORDERED: IOHEXOL-300 100 ML BOTTLE ONE (10:57)
[2022-03-04] MEDS ORDERED: LIDOCAINE HCL 1% 10 MG/ML 10ML VIAL ONE (10:57)
[2022-03-04] MEDS ORDERED: IOHEXOL-300 50 ML BOTTLE IV ONE (11:40)
[2022-03-04] MEDS: DAPTOMYCIN 500 MG in SODIUM CHLORIDE 0.9% 50 ML IV SCH (15:54)
[2022-03-04] MEDS: MICAFUNGIN 100 MG in SODIUM CHLORIDE 0.9% 100 ML IV SCH (15:54)
[2022-03-04] MEDS: KCL 10MEQ/50ML PREMIX 50 ML IV SCH ×3 (15:55→22:07)
[2022-03-04] MEDS ORDERED: FUROSEMIDE 20MG/2ML VIAL IVP NR (21:57)
[2022-03-04] MEDS ORDERED: METHYLPREDNISOLONE SOD SUCC 125 MG/2 ML VIAL IV NR (22:00)
[2022-03-04 22:34] LABS: BG CARBOXYHEMOGLOBIN 0.8 % (0.5-1.5); BG DEOXYHEMOGLOBIN 6.8 % (0.0-5.0); BG FRACTION INSPIRED OXYGEN 100; BG HCO3 ACT 25.9 mmol/L (22.0-26.0); BG METHEMOGLOBIN 0.3 % (0.0-1.5); BG OXYGEN SATURATION 93.1 % (92.0-98.5); BG OXYHEMOGLOBIN 92.1 % (94.0-97.0); BG PCO2 33.9 mmHg (35.0-45.0); BG PH 7.501 (7.350-7.450); BG PO2 62.6 mmHg (75.0-100.0); BG SAMPLE SITE RIGHT RADIAL; BG VENT MODE MASK - NRB
[2022-03-05] VITALS (43 sets, daily range): BP systolic 83–158; BP diastolic 46–108
[2022-03-05] MEDS: HYDROCODONE/ACETAMINOPHEN 5/325MG TABLET PO PRN (01:48)
[2022-03-05 02:25] LABS: BG BASE EXCESS 2.3 mmol/L (-2.0-2.0); BG CARBOXYHEMOGLOBIN 0.5 % (0.5-1.5); BG DEOXYHEMOGLOBIN 0.5 % (0.0-5.0); BG FRACTION INSPIRED OXYGEN 100; BG HCO3 ACT 27.1 mmol/L (22.0-26.0); BG METHEMOGLOBIN 0.3 % (0.0-1.5); BG OXYGEN SATURATION 99.5 % (92.0-98.5); BG OXYHEMOGLOBIN 98.7 % (94.0-97.0); BG PCO2 42.6 mmHg (35.0-45.0); BG PH 7.421 (7.350-7.450); BG PO2 206.4 mmHg (75.0-100.0); BG SAMPLE SITE LEFT RADIAL; BG TOTAL HEMOGLOBIN 11.6 g/dL (12.0-18.0); BG VENT MODE MASK - BIPAP
[2022-03-05] MEDS: BLOOD SUGAR DIAGNOSTIC STRIP TEST SCH ×6 (03:24→20:00)
[2022-03-05] MEDS: GUAIFENESIN 200MG/10ML SUGAR FREE UDC PO SCH ×4 (05:15→21:46)
[2022-03-05] MEDS: METRONIDAZOLE 500MG TABLET PO SCH ×3 (05:15→21:46)
[2022-03-05] MEDS: METOCLOPRAMIDE HCL 10MG/2ML VIAL IV SCH ×3 (05:15→17:01)
[2022-03-05] MEDS: PANTOPRAZOLE SODIUM 40 MG/VIAL IV SCH ×2 (05:15→15:43)
[2022-03-05 07:40] LABS: BASOPHILS % 0.4 % (0.0-2.0); EOSINOPHILS % 0.1 % (0.0-5.0); HEMATOCRIT. 31.4 % (36.0-48.0); HEMOGLOBIN. 10.2 g/dL (12.0-16.0); LYMPHOCYTES % 13.8 % (20.0-50.0); MEAN CORPUSCULAR HEMOGLOBIN 31.7 pg (28.0-32.0); MEAN CORPUSCULAR VOLUME 97.7 fL (81.0-99.0); MEAN PLATELET VOLUME 8.2 fl (7.4-10.4); MONOCYTES % 2.1 % (2.0-8.0); NEUTROPHILS % 83.6 % (40.0-76.0); PLATELET 248 x1000/uL (130-400); RED BLOOD CELL COUNT 3.22 mill/uL (4.2-5.4); RED CELL DISTRIBUTION WIDTH 25.2 % (11.6-14.6)
[2022-03-05 07:49] LABS: CHLORIDE 109 mEq/L (98-107)
[2022-03-05] MEDS: CEFEPIME 2,000 MG in DEXT 5% WATER 100 ML IV SCH ×2 (08:52→21:46)
[2022-03-05] MEDS: PROPOFOL 10MG/ML 100ML 100 ML IV PRN ×2 (08:53→15:54)
[2022-03-05] MEDS: NOREPINEPHRINE 8 MG in DEXT 5% WATER 242 ML IV PRN (08:54)
[2022-03-05] MEDS ORDERED: PHENYLEPHRINE 50 MG in DEXT 5% WATER 245 ML IV PRN (09:00)
[2022-03-05 09:18] LABS: HEMATOCRIT 30.5 % (36.0-48.0); HEMOGLOBIN 9.9 g/dL (12.0-16.0); MEAN CORPUSCULAR HEMOGLOBIN 32.3 pg (28.0-32.0); MEAN CORPUSCULAR VOLUME 99.6 fL (81.0-99.0); PLATELET 251 x1000/uL (130-400); RED BLOOD CELL COUNT 3.06 mill/uL (4.2-5.4); RED CELL DISTRIBUTION WIDTH 24.9 % (11.6-14.6)
[2022-03-05 09:31] LABS: INR 1.8; PROTHROMBIN TIME 18.2 sec (9.6-11.0)
[2022-03-05 10:00] LABS: BG BASE EXCESS 0.2 mmol/L (-2.0-2.0); BG CARBOXYHEMOGLOBIN 0.3 % (0.5-1.5); BG DEOXYHEMOGLOBIN 4.9 % (0.0-5.0); BG METHEMOGLOBIN 0.1 % (0.0-1.5); BG OXYGEN SATURATION 95.1 % (92.0-98.5); BG OXYHEMOGLOBIN 94.7 % (94.0-97.0); BG PCO2 60.5 mmHg (35.0-45.0); BG PH 7.284 (7.350-7.450); BG PO2 83.2 mmHg (75.0-100.0); BG SAMPLE SITE RIGHT RADIAL; BG TOTAL HEMOGLOBIN 12.7 g/dL (12.0-18.0); BG VENT MODE VENT - AC
[2022-03-05] MEDS: FUROSEMIDE 40MG/4ML VIAL IVP SCH (13:08)
[2022-03-05] MEDS: IPRATROPIUM BROMIDE (0.02%) 0.5MG/2.5ML NEB HHN SCH ×2 (14:35→21:04)
[2022-03-05 15:06] LABS: BG BASE EXCESS 3.6 mmol/L (-2.0-2.0); BG CARBOXYHEMOGLOBIN 0.3 % (0.5-1.5); BG DEOXYHEMOGLOBIN 0.5 % (0.0-5.0); BG HCO3 ACT 26.4 mmol/L (22.0-26.0); BG METHEMOGLOBIN 0.2 % (0.0-1.5); BG OXYGEN SATURATION 99.5 % (92.0-98.5); BG PCO2 33.5 mmHg (35.0-45.0); BG PH 7.515 (7.350-7.450); BG PO2 317.3 mmHg (75.0-100.0); BG SAMPLE SITE RIGHT RADIAL; BG TOTAL HEMOGLOBIN 10.6 g/dL (12.0-18.0); BG VENT MODE VENT - AC
[2022-03-05] MEDS: DAPTOMYCIN 500 MG in SODIUM CHLORIDE 0.9% 50 ML IV SCH (15:43)
[2022-03-05] MEDS: DEXT 5%/0.45% NACL 1000ML 1,000 ML IV SCH (15:54)
[2022-03-05] MEDS: MICAFUNGIN 100 MG in SODIUM CHLORIDE 0.9% 100 ML IV SCH (16:58)
[2022-03-06] VITALS (97 sets, daily range): BP systolic 84–128; BP diastolic 49–77
[2022-03-06] MEDS: METOCLOPRAMIDE HCL 10MG/2ML VIAL IV SCH ×5 (00:39→23:44)
[2022-03-06] MEDS: IPRATROPIUM BROMIDE (0.02%) 0.5MG/2.5ML NEB HHN SCH ×4 (02:34→20:23)
[2022-03-06] MEDS: BLOOD SUGAR DIAGNOSTIC STRIP TEST SCH ×7 (03:29→23:39)
[2022-03-06] MEDS: PANTOPRAZOLE SODIUM 40 MG/VIAL IV SCH ×2 (03:31→14:56)
[2022-03-06] MEDS: METRONIDAZOLE 500MG TABLET PO SCH ×3 (05:23→20:34)
[2022-03-06] MEDS: GUAIFENESIN 200MG/10ML SUGAR FREE UDC PO SCH ×4 (05:23→20:34)
[2022-03-06] MEDS: NOREPINEPHRINE 8 MG in DEXT 5% WATER 242 ML IV PRN ×2 (06:46→20:35)
[2022-03-06] MEDS: CEFEPIME 2,000 MG in DEXT 5% WATER 100 ML IV SCH ×2 (08:34→20:34)
[2022-03-06] MEDS: FUROSEMIDE 40MG/4ML VIAL IVP SCH (08:34)
[2022-03-06] MEDS: DEXT 5%/0.45% NACL 1000ML 1,000 ML IV SCH (08:34)
[2022-03-06 08:55] LABS: BG BASE EXCESS 3.6 mmol/L (-2.0-2.0); BG CARBOXYHEMOGLOBIN 0.5 % (0.5-1.5); BG DEOXYHEMOGLOBIN 1.4 % (0.0-5.0); BG FRACTION INSPIRED OXYGEN 40; BG METHEMOGLOBIN 0.2 % (0.0-1.5); BG OXYGEN SATURATION 98.6 % (92.0-98.5); BG OXYHEMOGLOBIN 97.9 % (94.0-97.0); BG PCO2 30.8 mmHg (35.0-45.0); BG PH 7.544 (7.350-7.450); BG PO2 120.5 mmHg (75.0-100.0); BG SAMPLE SITE RIGHT RADIAL; BG TOTAL HEMOGLOBIN 9.1 g/dL (12.0-18.0); BG TOTAL RESPIRATORY RATE 28 b/min; BG VENT MODE VENT - AC
[2022-03-06] MEDS ORDERED: PROPOFOL 10MG/ML 100ML 100 ML IV PRN (10:45)
[2022-03-06] MEDS: PROPOFOL 10MG/ML 100ML 100 ML IV PRN (11:02)
[2022-03-06] MEDS: ACETYLCYSTEINE 100MG/ML 10% VIAL 4ML INH SCH ×2 (14:24→22:00)
[2022-03-06] MEDS ORDERED: FENTANYL 2500MCG/250ML PMX 250 ML IV ONE (15:30)
[2022-03-06] MEDS ORDERED: MIDAZOLAM 100MG/100ML PMX 100 ML IV PRN (15:30)
[2022-03-06] MEDS ORDERED: MIDAZOLAM HCL 100 MG in SODIUM CHLORIDE 0.9% 100 ML IV PRN (15:45)
[2022-03-06] MEDS: DAPTOMYCIN 500 MG in SODIUM CHLORIDE 0.9% 50 ML IV SCH (17:06)
[2022-03-06] MEDS: FENTANYL CITRATE 2,500 MCG in SODIUM CHLORIDE 0.9% 200 ML IV PRN (17:48)
[2022-03-07] VITALS (92 sets, daily range): BP systolic 81–141; BP diastolic 47–76
[2022-03-07] MEDS: DEXT 5%/0.45% NACL 1000ML 1,000 ML IV SCH (00:55)
[2022-03-07] MEDS: PANTOPRAZOLE SODIUM 40 MG/VIAL IV SCH ×2 (02:33→16:50)
[2022-03-07] MEDS: IPRATROPIUM BROMIDE (0.02%) 0.5MG/2.5ML NEB HHN SCH ×4 (02:40→20:24)
[2022-03-07] MEDS: BLOOD SUGAR DIAGNOSTIC STRIP TEST SCH ×6 (03:13→23:27)
[2022-03-07] MEDS: GUAIFENESIN 200MG/10ML SUGAR FREE UDC PO SCH ×4 (05:00→21:03)
[2022-03-07] MEDS: METRONIDAZOLE 500MG TABLET PO SCH ×3 (05:01→21:02)
[2022-03-07] MEDS: METOCLOPRAMIDE HCL 10MG/2ML VIAL IV SCH ×4 (05:01→23:27)
[2022-03-07 05:39] LABS: BASOPHILS % 0.2 % (0.0-2.0); EOSINOPHILS % 2.3 % (0.0-5.0); HEMATOCRIT. 25.5 % (36.0-48.0); HEMOGLOBIN. 8.5 g/dL (12.0-16.0); LYMPHOCYTES % 17.3 % (20.0-50.0); MEAN CORPUSCULAR HEMOGLOBIN 33.1 pg (28.0-32.0); MEAN CORPUSCULAR VOLUME 99.8 fL (81.0-99.0); MEAN PLATELET VOLUME 8.4 fl (7.4-10.4); MONOCYTES % 4.7 % (2.0-8.0); NEUTROPHILS % 75.5 % (40.0-76.0); PLATELET 240 x1000/uL (130-400); RED BLOOD CELL COUNT 2.56 mill/uL (4.2-5.4); RED CELL DISTRIBUTION WIDTH 25.6 % (11.6-14.6)
[2022-03-07 07:28] LABS: CHLORIDE 109 mEq/L (98-107)
[2022-03-07] MEDS: FUROSEMIDE 40MG/4ML VIAL IVP SCH (08:29)
[2022-03-07] MEDS: KCL 20MEQ/100ML PREMIX 100 ML IV SCH ×2 (08:29→11:03)
[2022-03-07] MEDS: CEFEPIME 2,000 MG in DEXT 5% WATER 100 ML IV SCH ×2 (08:29→20:17)
[2022-03-07 08:45] LABS: BG BASE EXCESS 4.7 mmol/L (-2.0-2.0); BG CARBOXYHEMOGLOBIN 0.5 % (0.5-1.5); BG DEOXYHEMOGLOBIN 2.5 % (0.0-5.0); BG FRACTION INSPIRED OXYGEN 35; BG HCO3 ACT 27.9 mmol/L (22.0-26.0); BG METHEMOGLOBIN 0.3 % (0.0-1.5); BG OXYGEN SATURATION 97.5 % (92.0-98.5); BG OXYHEMOGLOBIN 96.7 % (94.0-97.0); BG PCO2 35.8 mmHg (35.0-45.0); BG PO2 100.7 mmHg (75.0-100.0); BG SAMPLE SITE RIGHT RADIAL; BG TOTAL HEMOGLOBIN 8.8 g/dL (12.0-18.0); BG VENT MODE VENT - AC
[2022-03-07] MEDS: ACETYLCYSTEINE 100MG/ML 10% VIAL 4ML INH SCH ×2 (08:49→14:09)
[2022-03-07] MEDS: MULTIVITAMINS,THER W-MINERALS TABLET PO SCH (13:24)
[2022-03-07] MEDS: DAPTOMYCIN 500 MG in SODIUM CHLORIDE 0.9% 50 ML IV SCH (16:50)
[2022-03-07] MEDS: NOREPINEPHRINE 8 MG in DEXT 5% WATER 242 ML IV PRN (20:17)
[2022-03-08] VITALS (96 sets, daily range): BP systolic 80–123; BP diastolic 46–78
[2022-03-08] MEDS: IPRATROPIUM BROMIDE (0.02%) 0.5MG/2.5ML NEB HHN SCH ×4 (02:01→19:55)
[2022-03-08] MEDS: BLOOD SUGAR DIAGNOSTIC STRIP TEST SCH ×5 (03:53→20:00)
[2022-03-08] MEDS: PANTOPRAZOLE SODIUM 40 MG/VIAL IV SCH ×2 (04:03→14:34)
[2022-03-08] MEDS: GUAIFENESIN 200MG/10ML SUGAR FREE UDC PO SCH ×4 (04:03→21:38)
[2022-03-08] MEDS: METOCLOPRAMIDE HCL 10MG/2ML VIAL IV SCH ×3 (05:19→17:51)
[2022-03-08] MEDS: METRONIDAZOLE 500MG TABLET PO SCH ×3 (05:19→21:38)
[2022-03-08 05:38] LABS: BASOPHILS % 0.4 % (0.0-2.0); EOSINOPHILS % 2.3 % (0.0-5.0); HEMATOCRIT. 25.7 % (36.0-48.0); HEMOGLOBIN. 8.3 g/dL (12.0-16.0); LYMPHOCYTES % 17.3 % (20.0-50.0); MEAN CORPUSCULAR HEMOGLOBIN 32.1 pg (28.0-32.0); MEAN CORPUSCULAR VOLUME 99.2 fL (81.0-99.0); MEAN PLATELET VOLUME 8.6 fl (7.4-10.4); MONOCYTES % 3.5 % (2.0-8.0); NEUTROPHILS % 76.5 % (40.0-76.0); PLATELET 283 x1000/uL (130-400); RED BLOOD CELL COUNT 2.59 mill/uL (4.2-5.4); RED CELL DISTRIBUTION WIDTH 26.4 % (11.6-14.6)
[2022-03-08 05:46] LABS: CHLORIDE 107 mEq/L (98-107)
[2022-03-08] MEDS: CEFEPIME 2,000 MG in DEXT 5% WATER 100 ML IV SCH ×2 (08:13→21:36)
[2022-03-08] MEDS: KCL 20MEQ/100ML PREMIX 100 ML IV SCH ×3 (08:14→13:30)
[2022-03-08] MEDS: FUROSEMIDE 40MG/4ML VIAL IVP SCH (08:14)
[2022-03-08] MEDS ORDERED: IOHEXOL-300 50 ML BOTTLE IV ONE (08:37)
[2022-03-08 09:01] LABS: BG BASE EXCESS 3.6 mmol/L (-2.0-2.0); BG CARBOXYHEMOGLOBIN 0.3 % (0.5-1.5); BG DEOXYHEMOGLOBIN 3.8 % (0.0-5.0); BG FRACTION INSPIRED OXYGEN 35; BG HCO3 ACT 27.2 mmol/L (22.0-26.0); BG METHEMOGLOBIN 0.3 % (0.0-1.5); BG OXYGEN SATURATION 96.2 % (92.0-98.5); BG OXYHEMOGLOBIN 95.6 % (94.0-97.0); BG PCO2 37.1 mmHg (35.0-45.0); BG PH 7.483 (7.350-7.450); BG PO2 83.5 mmHg (75.0-100.0); BG SAMPLE SITE LEFT RADIAL; BG TOTAL HEMOGLOBIN 8.8 g/dL (12.0-18.0); BG VENT MODE VENT - AC
[2022-03-08] MEDS ORDERED: IOHEXOL-300 100 ML BOTTLE ONE (09:51)
[2022-03-08] MEDS ORDERED: LIDOCAINE HCL 1% 10 MG/ML 10ML VIAL ONE (09:51)
[2022-03-08] MEDS ORDERED: NALOXONE HCL 0.4MG/ML VIAL IV PRN (10:00)
[2022-03-08] MEDS: MULTIVITAMINS,THER W-MINERALS TABLET PO SCH (11:01)
[2022-03-08] MEDS: DAPTOMYCIN 500 MG in SODIUM CHLORIDE 0.9% 50 ML IV SCH (16:27)
[2022-03-09] VITALS (96 sets, daily range): BP systolic 80–142; BP diastolic 34–89
[2022-03-09] MEDS: METOCLOPRAMIDE HCL 10MG/2ML VIAL IV SCH ×4 (00:04→19:21)
[2022-03-09] MEDS: BLOOD SUGAR DIAGNOSTIC STRIP TEST SCH ×6 (00:04→20:00)
[2022-03-09] MEDS: NOREPINEPHRINE 8 MG in DEXT 5% WATER 242 ML IV PRN ×2 (01:55→22:49)
[2022-03-09] MEDS: IPRATROPIUM BROMIDE (0.02%) 0.5MG/2.5ML NEB HHN SCH ×4 (02:03→20:54)
[2022-03-09] MEDS: PANTOPRAZOLE SODIUM 40 MG/VIAL IV SCH ×2 (03:57→15:45)
[2022-03-09] MEDS: GUAIFENESIN 200MG/10ML SUGAR FREE UDC PO SCH ×4 (03:57→22:35)
[2022-03-09 05:23] LABS: BASOPHILS % 0.3 % (0.0-2.0); EOSINOPHILS % 3.7 % (0.0-5.0); HEMATOCRIT. 24.2 % (36.0-48.0); HEMOGLOBIN. 7.9 g/dL (12.0-16.0); LYMPHOCYTES % 11.4 % (20.0-50.0); MEAN CORPUSCULAR HEMOGLOBIN 32.6 pg (28.0-32.0); MEAN CORPUSCULAR VOLUME 99.2 fL (81.0-99.0); MEAN PLATELET VOLUME 8.6 fl (7.4-10.4); MONOCYTES % 3.5 % (2.0-8.0); NEUTROPHILS % 81.1 % (40.0-76.0); PLATELET 307 x1000/uL (130-400); RED BLOOD CELL COUNT 2.44 mill/uL (4.2-5.4); RED CELL DISTRIBUTION WIDTH 26.6 % (11.6-14.6)
[2022-03-09 05:26] LABS: CHLORIDE 109 mEq/L (98-107)
[2022-03-09] MEDS: METRONIDAZOLE 500MG TABLET PO SCH ×3 (06:51→21:13)
[2022-03-09 08:22] LABS: BG BASE EXCESS 5.5 mmol/L (-2.0-2.0); BG CARBOXYHEMOGLOBIN 0.8 % (0.5-1.5); BG DEOXYHEMOGLOBIN 1.6 % (0.0-5.0); BG FRACTION INSPIRED OXYGEN 35; BG METHEMOGLOBIN 0.3 % (0.0-1.5); BG OXYGEN SATURATION 98.4 % (92.0-98.5); BG OXYHEMOGLOBIN 97.3 % (94.0-97.0); BG PH 7.452 (7.350-7.450); BG PO2 124.4 mmHg (75.0-100.0); BG SAMPLE SITE LEFT RADIAL; BG TOTAL HEMOGLOBIN 8.5 g/dL (12.0-18.0); BG VENT MODE VENT - SIMV
[2022-03-09] MEDS: MULTIVITAMINS,THER W-MINERALS TABLET PO SCH (09:21)
[2022-03-09] MEDS: FUROSEMIDE 40MG/4ML VIAL IVP SCH (09:21)
[2022-03-09] MEDS: CEFEPIME 2,000 MG in DEXT 5% WATER 100 ML IV SCH ×2 (09:22→21:13)
[2022-03-09] MEDS: FENTANYL CITRATE 2,500 MCG in SODIUM CHLORIDE 0.9% 200 ML IV PRN (09:23)
[2022-03-09] MEDS ORDERED: POTASSIUM CHLORIDE INJ 40 MEQ in DEXT 5% WATER 500 ML IV ONE (09:45)
[2022-03-09] MEDS ORDERED: MAGNESIUM 2 G PREMIX 50 ML IV NR (10:00)
[2022-03-09] MEDS: KCL 20MEQ/100ML X 2 FOR TOTAL KCL 40MEQ/200ML IV SCH ×2 (10:25→12:00)
[2022-03-09 13:40] LABS: INR 1.4; PROTHROMBIN TIME 14.7 sec (9.6-11.0)
[2022-03-09] MEDS: DAPTOMYCIN 500 MG in SODIUM CHLORIDE 0.9% 50 ML IV SCH (15:45)
[2022-03-10] VITALS (89 sets, daily range): BP systolic 68–179; BP diastolic 22–102
[2022-03-10] MEDS: METOCLOPRAMIDE HCL 10MG/2ML VIAL IV SCH ×4 (00:18→18:13)
[2022-03-10] MEDS: BLOOD SUGAR DIAGNOSTIC STRIP TEST SCH ×6 (00:18→20:00)
[2022-03-10] MEDS: IPRATROPIUM BROMIDE (0.02%) 0.5MG/2.5ML NEB HHN SCH ×4 (02:19→21:16)
[2022-03-10] MEDS: GUAIFENESIN 200MG/10ML SUGAR FREE UDC PO SCH ×4 (03:44→21:47)
[2022-03-10] MEDS: PANTOPRAZOLE SODIUM 40 MG/VIAL IV SCH ×2 (03:44→14:57)
[2022-03-10 05:32] LABS: BASOPHILS % 0.5 % (0.0-2.0); HEMATOCRIT. 23.2 % (36.0-48.0); HEMOGLOBIN. 7.6 g/dL (12.0-16.0); LYMPHOCYTES % 14.1 % (20.0-50.0); MEAN CORPUSCULAR HEMOGLOBIN 33.1 pg (28.0-32.0); MEAN CORPUSCULAR VOLUME 101.4 fL (81.0-99.0); MEAN PLATELET VOLUME 8.3 fl (7.4-10.4); NEUTROPHILS % 78.4 % (40.0-76.0); PLATELET 363 x1000/uL (130-400); RED BLOOD CELL COUNT 2.29 mill/uL (4.2-5.4); RED CELL DISTRIBUTION WIDTH 26.9 % (11.6-14.6)
[2022-03-10 05:35] LABS: CHLORIDE 108 mEq/L (98-107)
[2022-03-10] MEDS: METRONIDAZOLE 500MG TABLET PO SCH ×3 (06:08→21:46)
[2022-03-10 08:18] LABS: INR 1.3; PROTHROMBIN TIME 14.1 sec (9.6-11.0)
[2022-03-10] MEDS: FUROSEMIDE 40MG/4ML VIAL IVP SCH (09:20)
[2022-03-10] MEDS: MULTIVITAMINS,THER W-MINERALS TABLET PO SCH (09:20)
[2022-03-10] MEDS: CEFEPIME 2,000 MG in DEXT 5% WATER 100 ML IV SCH ×2 (09:21→21:45)
[2022-03-10 10:13] LABS: BASOPHILS % 0.6 % (0.0-2.0); EOSINOPHILS % 2.7 % (0.0-5.0); HEMATOCRIT. 22.7 % (36.0-48.0); HEMOGLOBIN. 7.6 g/dL (12.0-16.0); LYMPHOCYTES % 16.2 % (20.0-50.0); MEAN CORPUSCULAR HEMOGLOBIN 33.3 pg (28.0-32.0); MEAN CORPUSCULAR VOLUME 99.6 fL (81.0-99.0); MEAN PLATELET VOLUME 8.2 fl (7.4-10.4); MONOCYTES % 4.6 % (2.0-8.0); NEUTROPHILS % 75.9 % (40.0-76.0); PLATELET 372 x1000/uL (130-400); RED BLOOD CELL COUNT 2.28 mill/uL (4.2-5.4); RED CELL DISTRIBUTION WIDTH 26.5 % (11.6-14.6)
[2022-03-10 10:44] LABS: CHLORIDE 106 mEq/L (98-107)
[2022-03-10] MEDS: DAPTOMYCIN 500 MG in SODIUM CHLORIDE 0.9% 50 ML IV SCH (14:57)
[2022-03-10] MEDS: ACETAMINOPHEN 650MG/20.3ML UDC PO PRN (16:03)
[2022-03-10] MEDS: NOREPINEPHRINE 8 MG in DEXT 5% WATER 242 ML IV PRN (21:33)
[2022-03-11] VITALS (91 sets, daily range): BP systolic 62–147; BP diastolic 28–94
[2022-03-11] MEDS: ALBUTEROL (0.083%) 2.5MG/3ML NEB HHN PRN ×2 (00:08→20:53)
[2022-03-11] MEDS: IPRATROPIUM BROMIDE (0.02%) 0.5MG/2.5ML NEB HHN PRN ×2 (00:08→20:54)
[2022-03-11] MEDS: IPRATROPIUM BROMIDE (0.02%) 0.5MG/2.5ML NEB HHN SCH ×3 (02:16→14:17)
[2022-03-11] MEDS: BLOOD SUGAR DIAGNOSTIC STRIP TEST SCH ×6 (04:00→20:26)
[2022-03-11] MEDS: METOCLOPRAMIDE HCL 10MG/2ML VIAL IV SCH ×4 (04:43→20:25)
[2022-03-11] MEDS: PANTOPRAZOLE SODIUM 40 MG/VIAL IV SCH ×2 (04:44→15:28)
[2022-03-11] MEDS: GUAIFENESIN 200MG/10ML SUGAR FREE UDC PO SCH ×4 (04:45→22:45)
[2022-03-11 05:36] LABS: BASOPHILS % 0.6 % (0.0-2.0); EOSINOPHILS % 1.5 % (0.0-5.0); HEMATOCRIT. 22.9 % (36.0-48.0); HEMOGLOBIN. 7.7 g/dL (12.0-16.0); LYMPHOCYTES % 15.8 % (20.0-50.0); MEAN CORPUSCULAR HEMOGLOBIN 33.7 pg (28.0-32.0); MEAN PLATELET VOLUME 8.1 fl (7.4-10.4); MONOCYTES % 5.2 % (2.0-8.0); NEUTROPHILS % 76.9 % (40.0-76.0); PLATELET 448 x1000/uL (130-400); RED BLOOD CELL COUNT 2.29 mill/uL (4.2-5.4); RED CELL DISTRIBUTION WIDTH 26.5 % (11.6-14.6)
[2022-03-11 05:44] LABS: INR 1.3; PROTHROMBIN TIME 14.1 sec (9.6-11.0)
[2022-03-11 05:47] LABS: CHLORIDE 106 mEq/L (98-107)
[2022-03-11 05:55] LABS: CREATINE KINASE 30 IU/L (26-192)
[2022-03-11] MEDS: METRONIDAZOLE 500MG TABLET PO SCH ×3 (06:34→22:45)
[2022-03-11] MEDS: SODIUM CHLORIDE 3% FOR INH 4ML UD NEB INH SCH ×2 (08:49→14:17)
[2022-03-11] MEDS: FUROSEMIDE 40MG/4ML VIAL IVP SCH (08:59)
[2022-03-11] MEDS: MULTIVITAMINS,THER W-MINERALS TABLET PO SCH (09:00)
[2022-03-11] MEDS: CEFEPIME 2,000 MG in DEXT 5% WATER 100 ML IV SCH ×2 (10:57→20:25)
[2022-03-11] MEDS ORDERED: POTASSIUM CHLORIDE INJ 40 MEQ in DEXT 5% WATER 250 ML IV ONE (12:00)
[2022-03-11] MEDS: KCL 20MEQ/100ML X 2 FOR TOTAL KCL 40MEQ/200ML IV SCH ×2 (12:44→15:16)
[2022-03-11] MEDS: DAPTOMYCIN 500 MG in SODIUM CHLORIDE 0.9% 50 ML IV SCH (15:28)
[2022-03-12] VITALS (83 sets, daily range): BP systolic 82–194; BP diastolic 31–91
[2022-03-12] MEDS: ALBUTEROL (0.083%) 2.5MG/3ML NEB HHN PRN (00:30)
[2022-03-12] MEDS: SODIUM CHLORIDE 3% FOR INH 4ML UD NEB INH SCH ×2 (00:30→20:35)
[2022-03-12] MEDS: IPRATROPIUM BROMIDE (0.02%) 0.5MG/2.5ML NEB HHN PRN (00:30)
[2022-03-12] MEDS: BLOOD SUGAR DIAGNOSTIC STRIP TEST SCH ×7 (00:37→23:47)
[2022-03-12] MEDS: METOCLOPRAMIDE HCL 10MG/2ML VIAL IV SCH ×5 (01:03→23:33)
[2022-03-12] MEDS: PANTOPRAZOLE SODIUM 40 MG/VIAL IV SCH ×2 (03:48→15:33)
[2022-03-12] MEDS: GUAIFENESIN 200MG/10ML SUGAR FREE UDC PO SCH ×4 (03:48→21:40)
[2022-03-12] MEDS: METRONIDAZOLE 500MG TABLET PO SCH ×3 (05:51→21:39)
[2022-03-12 06:11] LABS: BASOPHILS % 0.5 % (0.0-2.0); EOSINOPHILS % 2.7 % (0.0-5.0); HEMATOCRIT. 25.6 % (36.0-48.0); HEMOGLOBIN. 8.3 g/dL (12.0-16.0); LYMPHOCYTES % 12.5 % (20.0-50.0); MEAN CORPUSCULAR HEMOGLOBIN 32.9 pg (28.0-32.0); MEAN CORPUSCULAR VOLUME 101.7 fL (81.0-99.0); MEAN PLATELET VOLUME 7.9 fl (7.4-10.4); MONOCYTES % 6.1 % (2.0-8.0); NEUTROPHILS % 78.2 % (40.0-76.0); PLATELET 500 x1000/uL (130-400); RED BLOOD CELL COUNT 2.52 mill/uL (4.2-5.4); RED CELL DISTRIBUTION WIDTH 27.2 % (11.6-14.6)
[2022-03-12 06:22] LABS: CHLORIDE 107 mEq/L (98-107)
[2022-03-12] MEDS: MULTIVITAMINS,THER W-MINERALS TABLET PO SCH (09:00)
[2022-03-12] MEDS: IPRATROPIUM BROMIDE (0.02%) 0.5MG/2.5ML NEB HHN SCH ×3 (09:35→20:35)
[2022-03-12] MEDS: FUROSEMIDE 40MG/4ML VIAL IVP SCH (09:50)
[2022-03-12] MEDS: CEFEPIME 2,000 MG in DEXT 5% WATER 100 ML IV SCH ×2 (09:50→21:39)
[2022-03-12] MEDS ORDERED: POTASSIUM CHLORIDE INJ 40 MEQ in DEXT 5% WATER 500 ML IV ONE (10:00)
[2022-03-12 12:25] LABS: BG BASE EXCESS 10.9 mmol/L (-2.0-2.0); BG CARBOXYHEMOGLOBIN 0.6 % (0.5-1.5); BG DEOXYHEMOGLOBIN 0.3 % (0.0-5.0); BG FRACTION INSPIRED OXYGEN 100; BG HCO3 ACT 35.5 mmol/L (22.0-26.0); BG METHEMOGLOBIN 0.4 % (0.0-1.5); BG OXYGEN SATURATION 99.7 % (92.0-98.5); BG OXYHEMOGLOBIN 98.7 % (94.0-97.0); BG PCO2 48.7 mmHg (35.0-45.0); BG PH 7.481 (7.350-7.450); BG PO2 304.3 mmHg (75.0-100.0); BG SAMPLE SITE RIGHT RADIAL; BG VENT MODE MASK - NRB
[2022-03-12] MEDS: DAPTOMYCIN 500 MG in SODIUM CHLORIDE 0.9% 50 ML IV SCH (15:33)
[2022-03-12] MEDS: ACETAMINOPHEN 650MG/20.3ML UDC PO PRN (16:46)
[2022-03-13] VITALS (43 sets, daily range): BP systolic 84–125; BP diastolic 41–85
[2022-03-13] MEDS: IPRATROPIUM BROMIDE (0.02%) 0.5MG/2.5ML NEB HHN SCH ×3 (02:09→15:10)
[2022-03-13] MEDS: SODIUM CHLORIDE 3% FOR INH 4ML UD NEB INH SCH (02:09)
[2022-03-13] MEDS: PANTOPRAZOLE SODIUM 40 MG/VIAL IV SCH ×2 (04:02→16:03)
[2022-03-13] MEDS: GUAIFENESIN 200MG/10ML SUGAR FREE UDC PO SCH ×4 (04:02→23:25)
[2022-03-13] MEDS: BLOOD SUGAR DIAGNOSTIC STRIP TEST SCH ×5 (04:02→20:00)
[2022-03-13 05:29] LABS: BASOPHILS % 0.5 % (0.0-2.0); EOSINOPHILS % 4.8 % (0.0-5.0); LYMPHOCYTES % 16.1 % (20.0-50.0); MEAN CORPUSCULAR HEMOGLOBIN 33.3 pg (28.0-32.0); MEAN CORPUSCULAR VOLUME 100.5 fL (81.0-99.0); MEAN PLATELET VOLUME 7.8 fl (7.4-10.4); MONOCYTES % 6.9 % (2.0-8.0); NEUTROPHILS % 71.7 % (40.0-76.0); PLATELET 480 x1000/uL (130-400); RED BLOOD CELL COUNT 2.05 mill/uL (4.2-5.4); RED CELL DISTRIBUTION WIDTH 27.5 % (11.6-14.6)
[2022-03-13 05:39] LABS: CHLORIDE 109 mEq/L (98-107)
[2022-03-13] MEDS: METOCLOPRAMIDE HCL 10MG/2ML VIAL IV SCH ×4 (06:00→23:38)
[2022-03-13] MEDS: METRONIDAZOLE 500MG TABLET PO SCH ×3 (06:28→23:25)
[2022-03-13 07:26] LABS: HEMATOCRIT. 20.6 % (36.0-48.0); HEMOGLOBIN. 6.8 g/dL (12.0-16.0)
[2022-03-13] MEDS ORDERED: POTASSIUM CHLORIDE INJ 40 MEQ in DEXT 5% WATER 250 ML IV ONE (08:45)
[2022-03-13] MEDS: CEFEPIME 2,000 MG in DEXT 5% WATER 100 ML IV SCH ×2 (09:32→23:32)
[2022-03-13] MEDS: FUROSEMIDE 40MG/4ML VIAL IVP SCH (09:32)
[2022-03-13] MEDS: MULTIVITAMINS,THER W-MINERALS TABLET PO SCH (09:32)
[2022-03-13] MEDS: KCL 20MEQ/100ML X 2 FOR TOTAL KCL 40MEQ/200ML IV SCH ×2 (09:33→12:36)
[2022-03-13] MEDS ORDERED: ACETAMINOPHEN 650MG SUPP PR NR (10:00)
[2022-03-13] MEDS ORDERED: DIPHENHYDRAMINE 12.5MG/5ML UDC PO NR (10:00)
[2022-03-13] MEDS ORDERED: ACETAMINOPHEN 650MG/20.3ML UDC PO NR (11:15)
[2022-03-13] MEDS: DIPHENHYDRAMINE 12.5MG/5ML UDC PO NR (11:17)
[2022-03-13] MEDS: DAPTOMYCIN 500 MG in SODIUM CHLORIDE 0.9% 50 ML IV SCH (16:03)
[2022-03-14] VITALS (7 sets, daily range): BP systolic 90–117; BP diastolic 44–68
[2022-03-14] MEDS: ACETYLCYSTEINE 100MG/ML 10% VIAL 4ML INH SCH ×3 (01:29→14:25)
[2022-03-14] MEDS: IPRATROPIUM BROMIDE (0.02%) 0.5MG/2.5ML NEB HHN SCH ×4 (01:29→21:23)
[2022-03-14] MEDS: SODIUM CHLORIDE 3% FOR INH 4ML UD NEB INH SCH (01:37)
[2022-03-14] MEDS: PANTOPRAZOLE SODIUM 40 MG/VIAL IV SCH ×2 (03:47→14:43)
[2022-03-14] MEDS: BLOOD SUGAR DIAGNOSTIC STRIP TEST SCH ×6 (04:00→20:11)
[2022-03-14] MEDS: GUAIFENESIN 200MG/10ML SUGAR FREE UDC PO SCH ×4 (05:31→21:35)
[2022-03-14] MEDS: METOCLOPRAMIDE HCL 10MG/2ML VIAL IV SCH ×4 (07:27→23:38)
[2022-03-14 07:28] LABS: CHLORIDE 110 mEq/L (98-107)
[2022-03-14 07:45] LABS: BASOPHILS % 0.9 % (0.0-2.0); EOSINOPHILS % 6.4 % (0.0-5.0); HEMATOCRIT. 24.6 % (36.0-48.0); HEMOGLOBIN. 8.4 g/dL (12.0-16.0); LYMPHOCYTES % 15.5 % (20.0-50.0); MEAN CORPUSCULAR HEMOGLOBIN 33.8 pg (28.0-32.0); MEAN CORPUSCULAR VOLUME 98.4 fL (81.0-99.0); MEAN PLATELET VOLUME 7.7 fl (7.4-10.4); MONOCYTES % 8.2 % (2.0-8.0); PLATELET 479 x1000/uL (130-400); RED CELL DISTRIBUTION WIDTH 25.6 % (11.6-14.6)
[2022-03-14] MEDS ORDERED: POTASSIUM CHLORIDE 20MEQ/PACKET PO NR (09:00)
[2022-03-14] MEDS: ALBUTEROL (0.083%) 2.5MG/3ML NEB HHN PRN (09:24)
[2022-03-14] MEDS ORDERED: CEFEPIME 2,000 MG in DEXT 5% WATER 100 ML IV SCH (09:30)
[2022-03-14] MEDS: CEFEPIME 2,000 MG in DEXT 5% WATER 100 ML IV SCH ×2 (09:30→21:35)
[2022-03-14] MEDS: FUROSEMIDE 40MG/4ML VIAL IVP SCH (09:31)
[2022-03-14] MEDS: MULTIVITAMINS,THER W-MINERALS TABLET PO SCH (09:31)
[2022-03-14] MEDS: DIPHENHYDRAMINE 12.5MG/5ML UDC PO NR (09:32)
[2022-03-14] MEDS ORDERED: POTASSIUM CHLORIDE 20MEQ TABLET SR PO NR (10:45)
[2022-03-14 13:07] LABS: ATYPICAL pANCA <1:20 titer (Neg:<1:20)
[2022-03-14 14:51] LABS: PLATELET ESTIMATE INCREASED
[2022-03-14] MEDS ORDERED: DAPTOMYCIN 500 MG in SODIUM CHLORIDE 0.9% 50 ML IV SCH (16:00)
[2022-03-14] MEDS: ACETAMINOPHEN 650MG/20.3ML UDC PO PRN ×2 (17:31→23:39)
[2022-03-14] MEDS: DAPTOMYCIN 500 MG in SODIUM CHLORIDE 0.9% 50 ML IV SCH (17:32)
[2022-03-15] MEDS: PANTOPRAZOLE SODIUM 40 MG/VIAL IV SCH ×2 (02:21→15:34)
[2022-03-15] MEDS: ACETYLCYSTEINE 100MG/ML 10% VIAL 4ML INH SCH ×4 (02:45→22:00)
[2022-03-15] MEDS: IPRATROPIUM BROMIDE (0.02%) 0.5MG/2.5ML NEB HHN SCH ×4 (02:45→21:29)
[2022-03-15] MEDS: BLOOD SUGAR DIAGNOSTIC STRIP TEST SCH ×4 (03:46→11:31)
[2022-03-15] MEDS: GUAIFENESIN 200MG/10ML SUGAR FREE UDC PO SCH ×4 (03:46→21:50)
[2022-03-15 04:00] VITALS: BP 119/59
[2022-03-15] MEDS: METOCLOPRAMIDE HCL 10MG/2ML VIAL IV SCH ×4 (05:07→23:05)
[2022-03-15 06:13] LABS: BASOPHILS % 0.6 % (0.0-2.0); EOSINOPHILS % 7.3 % (0.0-5.0); HEMATOCRIT. 25.6 % (36.0-48.0); HEMOGLOBIN. 8.9 g/dL (12.0-16.0); LYMPHOCYTES % 19.5 % (20.0-50.0); MEAN CORPUSCULAR HEMOGLOBIN 33.8 pg (28.0-32.0); MEAN CORPUSCULAR VOLUME 97.2 fL (81.0-99.0); MEAN PLATELET VOLUME 8.1 fl (7.4-10.4); MONOCYTES % 10.3 % (2.0-8.0); NEUTROPHILS % 62.3 % (40.0-76.0); PLATELET 462 x1000/uL (130-400); RED BLOOD CELL COUNT 2.64 mill/uL (4.2-5.4); RED CELL DISTRIBUTION WIDTH 24.9 % (11.6-14.6)
[2022-03-15 07:42] LABS: CHLORIDE 112 mEq/L (98-107)
[2022-03-15 08:00] VITALS: BP 144/60
[2022-03-15] MEDS: MULTIVITAMINS,THER W-MINERALS TABLET PO SCH (08:52)
[2022-03-15] MEDS: FUROSEMIDE 40MG/4ML VIAL IVP SCH (08:52)
[2022-03-15] MEDS: CEFEPIME 2,000 MG in DEXT 5% WATER 100 ML IV SCH ×2 (08:53→20:04)
[2022-03-15 09:07] LABS: SACCHAROMYCES CEREVISIAE IGM <20.0 Units (0.0-24.9)
[2022-03-15 11:43] VITALS: BP 124/63
[2022-03-15] MEDS ORDERED: NALOXONE HCL 0.4MG/ML VIAL IV PRN (12:15)
[2022-03-15] MEDS: DAPTOMYCIN 500 MG in SODIUM CHLORIDE 0.9% 50 ML IV SCH (15:34)
[2022-03-15 16:00] VITALS: BP 128/66
[2022-03-15] MEDS: HYDROCODONE/ACETAMINOPHEN 5/325MG TABLET PO PRN ×2 (17:01→21:05)
[2022-03-15 20:00] VITALS: BP 111/58
[2022-03-15] MEDS: ACETAMINOPHEN 650MG/20.3ML UDC PO PRN (20:01)
[2022-03-16] VITALS: BP 129/68
[2022-03-16] MEDS: HYDROCODONE/ACETAMINOPHEN 5/325MG TABLET PO PRN ×3 (01:31→20:51)
[2022-03-16] MEDS: IPRATROPIUM BROMIDE (0.02%) 0.5MG/2.5ML NEB HHN SCH ×4 (01:35→20:23)
[2022-03-16] MEDS: PANTOPRAZOLE SODIUM 40 MG/VIAL IV SCH ×2 (03:15→16:30)
[2022-03-16] MEDS: GUAIFENESIN 200MG/10ML SUGAR FREE UDC PO SCH ×4 (03:40→23:20)
[2022-03-16 04:00] VITALS: BP 117/51
[2022-03-16] MEDS: METOCLOPRAMIDE HCL 10MG/2ML VIAL IV SCH ×3 (06:11→18:07)
[2022-03-16 06:48] LABS: BASOPHILS % 0.6 % (0.0-2.0); EOSINOPHILS % 4.7 % (0.0-5.0); HEMATOCRIT. 28.1 % (36.0-48.0); HEMOGLOBIN. 9.6 g/dL (12.0-16.0); LYMPHOCYTES % 17.9 % (20.0-50.0); MEAN CORPUSCULAR HEMOGLOBIN 33.8 pg (28.0-32.0); MEAN CORPUSCULAR VOLUME 98.4 fL (81.0-99.0); MONOCYTES % 9.5 % (2.0-8.0); NEUTROPHILS % 67.3 % (40.0-76.0); RED BLOOD CELL COUNT 2.86 mill/uL (4.2-5.4); RED CELL DISTRIBUTION WIDTH 25.1 % (11.6-14.6)
[2022-03-16 07:22] LABS: CHLORIDE 111 mEq/L (98-107)
[2022-03-16 08:00] VITALS: BP 110/62
[2022-03-16] MEDS: CEFEPIME 2,000 MG in DEXT 5% WATER 100 ML IV SCH ×2 (08:15→20:47)
[2022-03-16] MEDS: FUROSEMIDE 40MG/4ML VIAL IVP SCH (08:16)
[2022-03-16] MEDS: MULTIVITAMINS,THER W-MINERALS TABLET PO SCH (08:16)
[2022-03-16] MEDS: ACETYLCYSTEINE 100MG/ML 10% VIAL 4ML INH SCH ×2 (09:15→15:45)
[2022-03-16 11:46] VITALS: BP 129/57
[2022-03-16 12:44] LABS: PLATELET 470 x1000/uL (130-400)
[2022-03-16] MEDS: DAPTOMYCIN 500 MG in SODIUM CHLORIDE 0.9% 50 ML IV SCH (16:30)
[2022-03-16 20:33] VITALS: BP 130/71
[2022-03-17 00:21] VITALS: BP 121/67
[2022-03-17] MEDS: METOCLOPRAMIDE HCL 10MG/2ML VIAL IV SCH ×4 (00:55→17:49)
[2022-03-17] MEDS: IPRATROPIUM BROMIDE (0.02%) 0.5MG/2.5ML NEB HHN SCH ×4 (02:16→20:46)
[2022-03-17] MEDS: GUAIFENESIN 200MG/10ML SUGAR FREE UDC PO SCH ×4 (03:52→21:29)
[2022-03-17] MEDS: PANTOPRAZOLE SODIUM 40 MG/VIAL IV SCH ×2 (03:52→17:49)
[2022-03-17 04:00] VITALS: BP 126/69
[2022-03-17 08:00] VITALS: BP 117/60
[2022-03-17] MEDS: MULTIVITAMINS,THER W-MINERALS TABLET PO SCH (09:00)
[2022-03-17] MEDS: CEFEPIME 2,000 MG in DEXT 5% WATER 100 ML IV SCH ×2 (09:00→20:19)
[2022-03-17] MEDS: FUROSEMIDE 40MG/4ML VIAL IVP SCH (09:00)
[2022-03-17 09:44] LABS: BASOPHILS % 0.4 % (0.0-2.0); HEMATOCRIT. 25.7 % (36.0-48.0); HEMOGLOBIN. 8.6 g/dL (12.0-16.0); LYMPHOCYTES % 12.7 % (20.0-50.0); MEAN CORPUSCULAR HEMOGLOBIN 33.4 pg (28.0-32.0); MEAN CORPUSCULAR VOLUME 100.1 fL (81.0-99.0); MEAN PLATELET VOLUME 7.6 fl (7.4-10.4); MONOCYTES % 9.6 % (2.0-8.0); NEUTROPHILS % 71.3 % (40.0-76.0); PLATELET 448 x1000/uL (130-400); RED BLOOD CELL COUNT 2.57 mill/uL (4.2-5.4); RED CELL DISTRIBUTION WIDTH 25.5 % (11.6-14.6)
[2022-03-17 12:00] VITALS: BP 119/60
[2022-03-17] MEDS: HYDROCODONE/ACETAMINOPHEN 5/325MG TABLET PO PRN ×2 (12:05→17:50)
[2022-03-17 16:00] VITALS: BP 120/66
[2022-03-17] MEDS: DAPTOMYCIN 500 MG in SODIUM CHLORIDE 0.9% 50 ML IV SCH (17:50)
[2022-03-17 20:44] VITALS: BP 136/72
[2022-03-18 00:24] VITALS: BP 156/70
[2022-03-18] MEDS: METOCLOPRAMIDE HCL 10MG/2ML VIAL IV SCH ×4 (00:29→17:47)
[2022-03-18] MEDS: IPRATROPIUM BROMIDE (0.02%) 0.5MG/2.5ML NEB HHN SCH ×4 (01:42→20:47)
[2022-03-18 04:00] VITALS: BP 139/69
[2022-03-18] MEDS: PANTOPRAZOLE SODIUM 40 MG/VIAL IV SCH ×2 (04:21→14:56)
[2022-03-18] MEDS: GUAIFENESIN 200MG/10ML SUGAR FREE UDC PO SCH ×4 (04:27→21:51)
[2022-03-18] MEDS: HYDROCODONE/ACETAMINOPHEN 5/325MG TABLET PO PRN ×4 (06:26→21:54)
[2022-03-18 08:00] VITALS: BP 101/50
[2022-03-18] MEDS: CEFEPIME 2,000 MG in DEXT 5% WATER 100 ML IV SCH ×2 (09:25→21:00)
[2022-03-18] MEDS: FUROSEMIDE 40MG/4ML VIAL IVP SCH (09:25)
[2022-03-18] MEDS: MULTIVITAMINS,THER W-MINERALS TABLET PO SCH (09:25)
[2022-03-18 12:00] VITALS: BP 119/49
[2022-03-18] MEDS: SODIUM HYPOCHLORITE 0.125% 473ML SOLUTION TOP SCH (14:56)
[2022-03-18] MEDS: DAPTOMYCIN 500 MG in SODIUM CHLORIDE 0.9% 50 ML IV SCH (15:41)
[2022-03-18 16:00] VITALS: BP 110/50
[2022-03-18 20:00] VITALS: BP 105/55
[2022-03-19] VITALS: BP 101/48
[2022-03-19] MEDS: IPRATROPIUM BROMIDE (0.02%) 0.5MG/2.5ML NEB HHN PRN (01:11)
[2022-03-19] MEDS: ALBUTEROL (0.083%) 2.5MG/3ML NEB HHN PRN (01:11)
[2022-03-19] MEDS: IPRATROPIUM BROMIDE (0.02%) 0.5MG/2.5ML NEB HHN SCH ×4 (02:45→20:55)
[2022-03-19] MEDS: PANTOPRAZOLE SODIUM 40 MG/VIAL IV SCH ×2 (03:15→17:33)
[2022-03-19 04:00] VITALS: BP 107/56
[2022-03-19] MEDS: GUAIFENESIN 200MG/10ML SUGAR FREE UDC PO SCH ×4 (04:53→23:14)
[2022-03-19] MEDS: HYDROCODONE/ACETAMINOPHEN 5/325MG TABLET PO PRN ×4 (04:58→22:47)
[2022-03-19] MEDS: METOCLOPRAMIDE HCL 10MG/2ML VIAL IV SCH ×4 (05:11→17:33)
[2022-03-19] MEDS ORDERED: LIDOCAINE HCL 1% 10 MG/ML 10ML VIAL ONE (07:18)
[2022-03-19 07:49] LABS: BASOPHILS % 0.3 % (0.0-2.0); EOSINOPHILS % 2.9 % (0.0-5.0); HEMATOCRIT. 25.6 % (36.0-48.0); HEMOGLOBIN. 8.4 g/dL (12.0-16.0); LYMPHOCYTES % 9.6 % (20.0-50.0); MEAN CORPUSCULAR HEMOGLOBIN 32.9 pg (28.0-32.0); MEAN PLATELET VOLUME 7.3 fl (7.4-10.4); MONOCYTES % 6.9 % (2.0-8.0); NEUTROPHILS % 80.3 % (40.0-76.0); PLATELET 452 x1000/uL (130-400); RED BLOOD CELL COUNT 2.54 mill/uL (4.2-5.4)
[2022-03-19 08:00] VITALS: BP 118/71
[2022-03-19] MEDS: SODIUM HYPOCHLORITE 0.125% 473ML SOLUTION TOP SCH (09:00)
[2022-03-19] MEDS: FUROSEMIDE 40MG/4ML VIAL IVP SCH (11:35)
[2022-03-19] MEDS: MULTIVITAMINS,THER W-MINERALS TABLET PO SCH (11:35)
[2022-03-19] MEDS: CEFEPIME 2,000 MG in DEXT 5% WATER 100 ML IV SCH ×2 (11:45→23:15)
[2022-03-19 12:00] VITALS: BP 130/62
[2022-03-19] MEDS: DAPTOMYCIN 500 MG in SODIUM CHLORIDE 0.9% 50 ML IV SCH (13:43)
[2022-03-19 16:00] VITALS: BP 125/60
[2022-03-19 20:00] VITALS: BP 103/42
[2022-03-19] MEDS ORDERED: POTASSIUM CHLORIDE INJ 40 MEQ in DEXT 5% WATER 250 ML IV ONE (23:00)
[2022-03-19] MEDS: POTASSIUM CHLORIDE 20MEQ TABLET SR PO SCH (23:00)
[2022-03-20] VITALS: BP 86/50
[2022-03-20] MEDS: METOCLOPRAMIDE HCL 10MG/2ML VIAL IV SCH ×4 (01:17→17:45)
[2022-03-20] MEDS: IPRATROPIUM BROMIDE (0.02%) 0.5MG/2.5ML NEB HHN SCH ×4 (01:18→21:12)
[2022-03-20] MEDS: KCL 20MEQ/100ML X 2 FOR TOTAL KCL 40MEQ/200ML IV SCH ×2 (01:42→01:49)
[2022-03-20] MEDS: PANTOPRAZOLE SODIUM 40 MG/VIAL IV SCH ×2 (03:47→17:10)
[2022-03-20 04:00] VITALS: BP 110/54
[2022-03-20] MEDS: HYDROCODONE/ACETAMINOPHEN 5/325MG TABLET PO PRN ×2 (04:16→08:53)
[2022-03-20] MEDS: GUAIFENESIN 200MG/10ML SUGAR FREE UDC PO SCH ×3 (04:17→17:44)
[2022-03-20 07:32] LABS: BASOPHILS % 0.5 % (0.0-2.0); EOSINOPHILS % 3.1 % (0.0-5.0); HEMATOCRIT. 24.2 % (36.0-48.0); HEMOGLOBIN. 8.1 g/dL (12.0-16.0); LYMPHOCYTES % 9.5 % (20.0-50.0); MEAN CORPUSCULAR HEMOGLOBIN 33.4 pg (28.0-32.0); MEAN PLATELET VOLUME 7.7 fl (7.4-10.4); NEUTROPHILS % 78.9 % (40.0-76.0); PLATELET 401 x1000/uL (130-400); RED BLOOD CELL COUNT 2.42 mill/uL (4.2-5.4); RED CELL DISTRIBUTION WIDTH 24.5 % (11.6-14.6)
[2022-03-20 08:00] VITALS: BP 127/58
[2022-03-20] MEDS: POTASSIUM CHLORIDE 20MEQ TABLET SR PO SCH (08:48)
[2022-03-20] MEDS: MULTIVITAMINS,THER W-MINERALS TABLET PO SCH (08:48)
[2022-03-20] MEDS: SODIUM HYPOCHLORITE 0.125% 473ML SOLUTION TOP SCH (08:48)
[2022-03-20] MEDS: FUROSEMIDE 40MG/4ML VIAL IVP SCH (08:48)
[2022-03-20 12:00] VITALS: BP 117/55
[2022-03-20] MEDS: CEFEPIME 2,000 MG in DEXT 5% WATER 100 ML IV SCH (12:35)
[2022-03-20] MEDS ORDERED: HYDROCODONE/ACETAMINOPHEN 5/325MG TABLET PO PRN (14:25)
[2022-03-20] MEDS ORDERED: NALOXONE HCL 0.4MG/ML VIAL IV PRN (14:30)
[2022-03-20] MEDS: DAPTOMYCIN 500 MG in SODIUM CHLORIDE 0.9% 50 ML IV SCH (14:39)
[2022-03-20 16:00] VITALS: BP 114/54
[2022-03-20 20:00] VITALS: BP 119/32
[2022-03-20] MEDS: ALBUTEROL (0.083%) 2.5MG/3ML NEB HHN PRN (21:12)
[2022-03-21] VITALS (10 sets, daily range): BP systolic 74–107; BP diastolic 26–62
[2022-03-21] MEDS: GUAIFENESIN 200MG/10ML SUGAR FREE UDC PO SCH ×4 (00:19→21:23)
[2022-03-21] MEDS: NYSTATIN 100,000 UNITS/ML 5ML UDC SSW SCH ×5 (00:31→17:10)
[2022-03-21] MEDS: CEFEPIME 2,000 MG in DEXT 5% WATER 100 ML IV SCH (00:31)
[2022-03-21] MEDS: METOCLOPRAMIDE HCL 10MG/2ML VIAL IV SCH ×5 (00:31→17:11)
[2022-03-21] MEDS: IPRATROPIUM BROMIDE (0.02%) 0.5MG/2.5ML NEB HHN SCH ×4 (02:17→21:35)
[2022-03-21] MEDS: PANTOPRAZOLE SODIUM 40 MG/VIAL IV SCH ×2 (03:49→15:45)
[2022-03-21] MEDS: FUROSEMIDE 40MG/4ML VIAL IVP SCH (09:00)
[2022-03-21] MEDS: MULTIVITAMINS,THER W-MINERALS TABLET PO SCH (09:00)
[2022-03-21] MEDS: SODIUM HYPOCHLORITE 0.125% 473ML SOLUTION TOP SCH (09:00)
[2022-03-21] MEDS: POTASSIUM CHLORIDE 20MEQ TABLET SR PO SCH (09:00)
[2022-03-21] MEDS: CEFEPIME 1,000 MG in DEXTROSE 5% WATER 50 ML IV SCH (13:25)
[2022-03-21] MEDS ORDERED: SODIUM CHLORIDE 0.9% 500 ML IV ONE (13:30)
[2022-03-21] MEDS: MIDODRINE HCL 5MG TABLET PO SCH ×2 (13:43→17:11)
[2022-03-21 14:44] LABS: BG BASE EXCESS -4.4 mmol/L (-2.0-2.0); BG CARBOXYHEMOGLOBIN 0.4 % (0.5-1.5); BG DEOXYHEMOGLOBIN 13.8 % (0.0-5.0); BG FRACTION INSPIRED OXYGEN 32; BG HCO3 ACT 18.4 mmol/L (22.0-26.0); BG METHEMOGLOBIN 0.3 % (0.0-1.5); BG OXYGEN SATURATION 86.1 % (92.0-98.5); BG OXYHEMOGLOBIN 85.5 % (94.0-97.0); BG PCO2 25.5 mmHg (35.0-45.0); BG PH 7.476 (7.350-7.450); BG SAMPLE SITE RIGHT RADIAL; BG TOTAL HEMOGLOBIN 8.2 g/dL (12.0-18.0); BG VENT MODE NASAL CANNULA
[2022-03-21] MEDS ORDERED: SODIUM BICARBONATE 8.4% 1 MEQ/ML 50ML SYR IV NR (15:00)
[2022-03-21 17:08] LABS: BASOPHILS % 0.1 % (0.0-2.0); EOSINOPHILS % 1.8 % (0.0-5.0); HEMATOCRIT. 25.4 % (36.0-48.0); HEMOGLOBIN. 8.1 g/dL (12.0-16.0); LYMPHOCYTES % 10.9 % (20.0-50.0); MEAN CORPUSCULAR HEMOGLOBIN 32.7 pg (28.0-32.0); MEAN CORPUSCULAR VOLUME 102.5 fL (81.0-99.0); MEAN PLATELET VOLUME 7.9 fl (7.4-10.4); MONOCYTES % 6.6 % (2.0-8.0); NEUTROPHILS % 80.6 % (40.0-76.0); PLATELET 357 x1000/uL (130-400); RED BLOOD CELL COUNT 2.48 mill/uL (4.2-5.4); RED CELL DISTRIBUTION WIDTH 24.9 % (11.6-14.6)
[2022-03-21] MEDS: LACTULOSE 20G/30ML UDC PO SCH (21:23)
[2022-03-22] VITALS (66 sets, daily range): BP systolic 47–168; BP diastolic 21–102
[2022-03-22] MEDS: METOCLOPRAMIDE HCL 10MG/2ML VIAL IV SCH ×4 (00:01→17:24)
[2022-03-22] MEDS: IPRATROPIUM BROMIDE (0.02%) 0.5MG/2.5ML NEB HHN SCH ×3 (01:22→20:29)
[2022-03-22] MEDS: PANTOPRAZOLE SODIUM 40 MG/VIAL IV SCH ×2 (04:54→17:46)
[2022-03-22] MEDS: GUAIFENESIN 200MG/10ML SUGAR FREE UDC PO SCH ×4 (04:54→22:18)
[2022-03-22] MEDS: LACTULOSE 20G/30ML UDC PO SCH ×3 (04:54→22:18)
[2022-03-22] MEDS: NYSTATIN 100,000 UNITS/ML 5ML UDC SSW SCH ×4 (04:55→17:24)
[2022-03-22 07:05] LABS: BASOPHILS % 0.3 % (0.0-2.0); EOSINOPHILS % 0.9 % (0.0-5.0); HEMOGLOBIN. 8.5 g/dL (12.0-16.0); LYMPHOCYTES % 10.6 % (20.0-50.0); MEAN CORPUSCULAR HEMOGLOBIN 33.1 pg (28.0-32.0); MEAN CORPUSCULAR VOLUME 104.5 fL (81.0-99.0); MEAN PLATELET VOLUME 7.9 fl (7.4-10.4); MONOCYTES % 4.4 % (2.0-8.0); NEUTROPHILS % 83.8 % (40.0-76.0); PLATELET 335 x1000/uL (130-400); RED BLOOD CELL COUNT 2.58 mill/uL (4.2-5.4)
[2022-03-22] MEDS ORDERED: FENTANYL CITRATE/PF 2,500 MCG in SODIUM CHLORIDE 0.9% 200 ML IV PRN (07:45)
[2022-03-22 08:00] LABS: CHLORIDE 113 mEq/L (98-107)
[2022-03-22] MEDS: NOREPINEPHRINE 8 MG in DEXT 5% WATER 242 ML IV PRN ×2 (08:33→18:31)
[2022-03-22 08:46] LABS: BG BASE EXCESS -5.7 mmol/L (-2.0-2.0); BG CARBOXYHEMOGLOBIN 0.3 % (0.5-1.5); BG DEOXYHEMOGLOBIN 0.7 % (0.0-5.0); BG HCO3 ACT 16.5 mmol/L (22.0-26.0); BG METHEMOGLOBIN 0.3 % (0.0-1.5); BG OXYGEN SATURATION 99.3 % (92.0-98.5); BG OXYHEMOGLOBIN 98.7 % (94.0-97.0); BG PH 7.493 (7.350-7.450); BG PO2 331.2 mmHg (75.0-100.0); BG SAMPLE SITE RIGHT RADIAL; BG TOTAL HEMOGLOBIN 8.3 g/dL (12.0-18.0); BG VENT MODE VENT - AC
[2022-03-22] MEDS ORDERED: DEXT 5%/0.45% NACL 1000ML 1,000 ML IV SCH (09:00)
[2022-03-22] MEDS: MULTIVITAMINS,THER W-MINERALS TABLET PO SCH (09:41)
[2022-03-22] MEDS: FUROSEMIDE 40MG/4ML VIAL IVP SCH (09:41)
[2022-03-22] MEDS: POTASSIUM CHLORIDE 20MEQ TABLET SR PO SCH (09:41)
[2022-03-22] MEDS: MIDODRINE HCL 5MG TABLET PO SCH ×3 (09:42→17:25)
[2022-03-22] MEDS ORDERED: ASPIRIN 81MG TABLET PO SCH (10:15)
[2022-03-22 10:42] LABS: CREATINE KINASE 27 IU/L (26-192)
[2022-03-22] MEDS: PHENYLEPHRINE 100 MG in DEXT 5% WATER 240 ML IV PRN ×2 (11:17→18:31)
[2022-03-22] MEDS ORDERED: DAPTOMYCIN 500 MG in SODIUM CHLORIDE 0.9% 50 ML IV SCH (12:00)
[2022-03-22] MEDS: CEFEPIME 1,000 MG in DEXTROSE 5% WATER 50 ML IV SCH ×3 (12:32)
[2022-03-22] MEDS: SODIUM HYPOCHLORITE 0.125% 473ML SOLUTION TOP SCH (17:24)
[2022-03-22 18:14] LABS: BG BASE EXCESS -11.5 mmol/L (-2.0-2.0); BG CARBOXYHEMOGLOBIN 0.3 % (0.5-1.5); BG DEOXYHEMOGLOBIN 3.5 % (0.0-5.0); BG FRACTION INSPIRED OXYGEN 50; BG HCO3 ACT 12.8 mmol/L (22.0-26.0); BG METHEMOGLOBIN 0.3 % (0.0-1.5); BG OXYGEN SATURATION 96.5 % (92.0-98.5); BG OXYHEMOGLOBIN 95.9 % (94.0-97.0); BG PCO2 23.8 mmHg (35.0-45.0); BG PH 7.347 (7.350-7.450); BG PO2 96.8 mmHg (75.0-100.0); BG SAMPLE SITE RIGHT RADIAL; BG TOTAL HEMOGLOBIN 9.2 g/dL (12.0-18.0); BG VENT MODE VENT - AC
[2022-03-23] VITALS (65 sets, daily range): BP systolic 41–229; BP diastolic 16–75
[2022-03-23] MEDS: NOREPINEPHRINE 8 MG in DEXT 5% WATER 242 ML IV PRN (02:04)
[2022-03-23] MEDS: IPRATROPIUM BROMIDE (0.02%) 0.5MG/2.5ML NEB HHN SCH ×4 (02:50→20:13)
[2022-03-23] MEDS: PHENYLEPHRINE 100 MG in DEXT 5% WATER 240 ML IV PRN ×2 (03:55→11:51)
[2022-03-23 04:51] LABS: HEMATOCRIT. 31.3 % (36.0-48.0); HEMOGLOBIN. 8.5 g/dL (12.0-16.0); MEAN CORPUSCULAR HEMOGLOBIN 32.5 pg (28.0-32.0); MEAN CORPUSCULAR VOLUME 119.4 fL (81.0-99.0); PLATELET 284 x1000/uL (130-400); RED BLOOD CELL COUNT 2.62 mill/uL (4.2-5.4); RED CELL DISTRIBUTION WIDTH 26.1 % (11.6-14.6)
[2022-03-23] MEDS ORDERED: SODIUM BICARBONATE 8.4% 1 MEQ/ML 50ML SYR IV NR ×2 (05:19→14:30)
[2022-03-23] MEDS: METOCLOPRAMIDE HCL 10MG/2ML VIAL IV SCH ×4 (05:26→18:23)
[2022-03-23] MEDS: GUAIFENESIN 200MG/10ML SUGAR FREE UDC PO SCH ×4 (05:26→22:30)
[2022-03-23] MEDS: NYSTATIN 100,000 UNITS/ML 5ML UDC SSW SCH ×4 (05:26→18:22)
[2022-03-23] MEDS: LACTULOSE 20G/30ML UDC PO SCH ×3 (05:29→22:00)
[2022-03-23] MEDS: NOREPINEPHRINE 32 MG in DEXT 5% WATER 218 ML IV PRN ×2 (05:47→14:59)
[2022-03-23] MEDS ORDERED: SODIUM BICARBONATE 100 MEQ in DEXTROSE 5% WATER 1,000 ML IV SCH (06:00)
[2022-03-23 08:52] LABS: BG BASE EXCESS -15.6 mmol/L (-2.0-2.0); BG CARBOXYHEMOGLOBIN 0.6 % (0.5-1.5); BG DEOXYHEMOGLOBIN 5.5 % (0.0-5.0); BG FRACTION INSPIRED OXYGEN 50; BG HCO3 ACT 11.5 mmol/L (22.0-26.0); BG METHEMOGLOBIN 0.4 % (0.0-1.5); BG OXYGEN SATURATION 94.4 % (92.0-98.5); BG OXYHEMOGLOBIN 93.5 % (94.0-97.0); BG PCO2 31.7 mmHg (35.0-45.0); BG PH 7.177 (7.350-7.450); BG PO2 89.9 mmHg (75.0-100.0); BG SAMPLE SITE RIGHT BRACHIAL; BG TOTAL HEMOGLOBIN 8.4 g/dL (12.0-18.0); BG VENT MODE VENT - AC
[2022-03-23] MEDS: VASOPRESSIN 20 UNIT in SODIUM CHLORIDE 0.9% 99 ML IV PRN ×2 (08:55→18:58)
[2022-03-23] MEDS: PANTOPRAZOLE SODIUM 40 MG/VIAL IV SCH ×2 (09:40→21:00)
[2022-03-23] MEDS: FUROSEMIDE 40MG/4ML VIAL IVP SCH (09:40)
[2022-03-23] MEDS: HYDROCORTISONE SOD SUCCINATE 100 MG/2 ML VIAL IV SCH ×3 (09:41→22:00)
[2022-03-23] MEDS: MULTIVITAMINS,THER W-MINERALS TABLET PO SCH (09:41)
[2022-03-23] MEDS: MIDODRINE HCL 5MG TABLET PO SCH ×3 (09:41→18:22)
[2022-03-23] MEDS: SODIUM HYPOCHLORITE 0.125% 473ML SOLUTION TOP SCH (09:42)
[2022-03-23] MEDS ORDERED: LEVETIRACETAM 1,000 MG in SODIUM CHLORIDE 0.9% 100 ML IV SCH (10:15)
[2022-03-23] MEDS: EPINEPHRINE 10 MG in SODIUM CHLORIDE 0.9% 240 ML IV PRN ×3 (11:02→16:23)
[2022-03-23] MEDS: CEFEPIME 1,000 MG in DEXTROSE 5% WATER 50 ML IV SCH ×3 (11:50)
[2022-03-23 12:06] LABS: HEMATOCRIT 28.2 % (36.0-48.0); HEMOGLOBIN 8.3 g/dL (12.0-16.0)
[2022-03-23 12:56] LABS: D-DIMER 3.68 mg/L FEU (<0.50); PROTHROMBIN TIME 53.9 sec (9.6-11.0)
[2022-03-23 13:10] LABS: INR 5.8
[2022-03-23 13:11] LABS: PARTIAL THROMBOPLASTIN TIME 95.7 sec (23.4-31.0)
[2022-03-23 14:15] LABS: BG BASE EXCESS -27.4 mmol/L (-2.0-2.0); BG CARBOXYHEMOGLOBIN 1.2 % (0.5-1.5); BG FRACTION INSPIRED OXYGEN 50; BG HCO3 ACT 5.3 mmol/L (22.0-26.0); BG METHEMOGLOBIN 0.3 % (0.0-1.5); BG OXYGEN SATURATION 82.7 % (92.0-98.5); BG OXYHEMOGLOBIN 81.5 % (94.0-97.0); BG PCO2 34.2 mmHg (35.0-45.0); BG PH 6.809 (7.350-7.450); BG PO2 73.4 mmHg (75.0-100.0); BG SAMPLE SITE RIGHT BRACHIAL; BG TOTAL HEMOGLOBIN 8.1 g/dL (12.0-18.0); BG VENT MODE VENT - AC
[2022-03-23 14:17] LABS: NUCLEATED RED BLOOD CELLS 7 /100 WBC
[2022-03-23 14:18] LABS: PLATELET ESTIMATE NORMAL
[2022-03-23] MEDS ORDERED: PHYTONADIONE 10MG/ML AMP SUBCUT NR (14:30)
[2022-03-23] MEDS ORDERED: SODIUM BICARBONATE 150 MEQ in DEXTROSE 5% WATER 1,000 ML IV SCH (15:30)
[2022-03-23] MEDS ORDERED: MEROPENEM 1,000 MG in SODIUM CHLORIDE 0.9% 100 ML IV SCH (21:00)
[2022-03-23] MEDS ORDERED: MORPHINE SULFATE 250 MG in DEXT 5% WATER 225 ML IV PRN (21:00)
[2022-03-23] MEDS ORDERED: LEVETIRACETAM 500MG PREMIX 100 ML IV SCH (21:00)
== END 2022-03-24 01:40 | DRG 720 ==
LOC: ER 17:54 → EDBEDREQTM 18:23 → EDBEDREQ 22:21 → MICUSO 23:30 → MICUNO 02-24 15:31 → 5EST 03-04 20:15 → CVICU 03-05 08:02 → 7WST 03-13 19:48 → MICUNO 03-22 07:51
PROVIDERS: ADMIT Internal Medicine; ATTEND Internal Medicine
PROC: 5A1955Z Respiratory Ventilation, Greater than 96 Consecutive Hours (ICD-10-PCS; principal; 2022-02-23)
PROC: 0BH17EZ Insertion of Endotracheal Airway into Trachea, Via Natural or Artificial Opening (ICD-10-PCS; 2022-02-23)
PROC: 30233N1 Transfusion of Nonautologous Red Blood Cells into Peripheral Vein, Percutaneous Approach (ICD-10-PCS; 2022-02-24)
PROC: 06H03DZ Insertion of Intraluminal Device into Inferior Vena Cava, Percutaneous Approach (ICD-10-PCS; 2022-03-04)
PROC: 06H03DZ Insertion of Intraluminal Device into Inferior Vena Cava, Percutaneous Approach (ICD-10-PCS; 2022-03-08)
PROC: 05HY33Z Insertion of Infusion Device into Upper Vein, Percutaneous Approach (ICD-10-PCS; 2022-03-19)
PROC: B51N1ZA Fluoroscopy of Left Upper Extremity Veins using Low Osmolar Contrast, Guidance (ICD-10-PCS; 2022-03-19)
PROC: 30233K1 Transfusion of Nonautologous Frozen Plasma into Peripheral Vein, Percutaneous Approach (ICD-10-PCS; 2022-03-23)
PROC: 4A10X4Z Monitoring of Central Nervous Electrical Activity, External Approach (ICD-10-PCS; 2022-03-24)
DX: A41.9 Sepsis, unspecified organism (principal); N17.0 Acute kidney failure with tubular necrosis; J96.01 Acute respiratory failure with hypoxia; I63.9 Cerebral infarction, unspecified; B37.1 Pulmonary candidiasis; E43 Unspecified severe protein-calorie malnutrition; K55.9 Vascular disorder of intestine, unspecified; J15.0 Pneumonia due to Klebsiella pneumoniae; Z20.822 Contact with and (suspected) exposure to COVID-19; R65.21 Severe sepsis with septic shock; I82.210 Acute embolism and thrombosis of superior vena cava; L89.154 Pressure ulcer of sacral region, stage 4; I82.403 Acute embolism and thrombosis of unspecified deep veins of lower extremity, bilateral; E88.09 Other disorders of plasma-protein metabolism, not elsewhere classified; D53.9 Nutritional anemia, unspecified; K31.84 Gastroparesis; G40.909 Epilepsy, unspecified, not intractable, without status epilepticus; K92.2 Gastrointestinal hemorrhage, unspecified; E11.43 Type 2 diabetes mellitus with diabetic autonomic (poly)neuropathy; E11.649 Type 2 diabetes mellitus with hypoglycemia without coma; M46.28 Osteomyelitis of vertebra, sacral and sacrococcygeal region; M85.80 Other specified disorders of bone density and structure, unspecified site; A09 Infectious gastroenteritis and colitis, unspecified; E87.6 Hypokalemia; K56.7 Ileus, unspecified; R13.12 Dysphagia, oropharyngeal phase; I25.10 Atherosclerotic heart disease of native coronary artery without angina pectoris; Z99.11 Dependence on respirator [ventilator] status; I50.20 Unspecified systolic (congestive) heart failure; B37.49 Other urogenital candidiasis; I13.0 Hypertensive heart and chronic kidney disease with heart failure and stage 1 through stage 4 chronic kidney disease, or unspecified chronic kidney disease; I50.30 Unspecified diastolic (congestive) heart failure; N18.9 Chronic kidney disease, unspecified; E11.22 Type 2 diabetes mellitus with diabetic chronic kidney disease; G82.50 Quadriplegia, unspecified; E87.20 Acidosis, unspecified; E72.20 Disorder of urea cycle metabolism, unspecified; B37.0 Candidal stomatitis; I82.211 Chronic embolism and thrombosis of superior vena cava; K76.0 Fatty (change of) liver, not elsewhere classified; J90 Pleural effusion, not elsewhere classified; G92.8 Other toxic encephalopathy; E87.5 Hyperkalemia; Z90.710 Acquired absence of both cervix and uterus; Z86.718 Personal history of other venous thrombosis and embolism; Z85.028 Personal history of other malignant neoplasm of stomach; Z82.49 Family history of ischemic heart disease and other diseases of the circulatory system; Z85.43 Personal history of malignant neoplasm of ovary; Z87.19 Personal history of other diseases of the digestive system; Z88.8 Allergy status to other drugs, medicaments and biological substances; Z95.828 Presence of other vascular implants and grafts; Z68.23 Body mass index [BMI] 23.0-23.9, adult
CPT/HCPCS: 31500; 36415; 36573; 36600; 37191; 70551; 71045; 71275; 74018; 74174; 74176; 76604; 76770; 80048; 80053; 80076; 81003; 82140; 82270; 82375; 82550; 82607; 82728; 82746; 82805; 82962; 83036; 83540; 83550; 83605; 83721; 83735; 84145; 84478; 85014; 85018; 85025; 85027; 85044; 85379; 85384; 86078; 86256; 86671; 86850; 86900; 86920; 86927; 87015; 87045; 87070; 87077; 87106; 87177; 87186; 87209; 87426; 87427; 87449; 89055; 92610; 93005; 93970; 94002; 94003; 94640; 94667; 97162; 99291; A6261; C1725; C1769; C1880; C9113; J0456; J0692; J0696; J0878; J1200; J1644; J1720; J1940; J1953; J2185; J2248; J2270; J2370; J2704; J2765; J2930; J3010; J3370; J3430; J3475; J3480; J3490; J7030; J7050; J7060; J7070; J7608; P9016; P9017; P9047; Q0163; Q9967